=== PATIENT | female | born 1950 | race Caucasian/White ===

== ENCOUNTER 2016-08-06 | Outpatient (CLI) | payer MEDICARE, MEDICAID | END 2016-08-06 05:49 | disposition critical access hospital (66) | DX: R07.9 Chest pain, unspecified (principal) | CPT/HCPCS: A0425; A0427 ==

== ENCOUNTER 2016-08-06 06:13 | Observation (INO) | payer MEDICARE, MEDICAID ==
[2016-08-06] MEDS ORDERED: oxyCODONE 5 MG TABLET PO STA (07:50)
[2016-08-06] MEDS ORDERED: oxyCODONE 5 MG TABLET ONE (07:53)
[2016-08-06] MEDS ORDERED: IPRATROPIUM/ALBUTEROL 3 ML NEB INH PRN (09:03)
[2016-08-06] MEDS ORDERED: LORATADINE 10 MG TABLET PO PRN (09:03)
[2016-08-06] MEDS ORDERED: SODIUM CHLORIDE FLUSH 0.9% 10 ML SYRINGE IVP PRN (09:06)
[2016-08-06] MEDS ORDERED: ONDANSETRON 4 MG/2 ML VIAL IVP PRN (09:06)
[2016-08-06] MEDS ORDERED: oxyCODONE 5 MG TABLET PO PRN (09:06)
[2016-08-06] MEDS ORDERED: NITROGLYCERIN SL 0.4 MG TABLET SL PRN (09:06)
[2016-08-06] MEDS ORDERED: ZOLPIDEM 5 MG TABLET PO PRN (09:06)
[2016-08-06] MEDS ORDERED: NITROGLYCERIN SL 0.4 MG TABLET SL STA (09:06)
[2016-08-06] MEDS ORDERED: MORPHINE 2 MG/ML SYRINGE IVP STA (09:07)
[2016-08-06] MEDS ORDERED: MORPHINE 2 MG/ML SYRINGE ONE ×2 (09:08)
[2016-08-06] MEDS ORDERED: FUROSEMIDE 40 MG TABLET PO SCH ×4 (10:00→17:18)
[2016-08-06] MEDS ORDERED: ASPIRIN EC 81 MG TABLET PO SCH (10:00)
[2016-08-06] MEDS: MORPHINE 2 MG/ML SYRINGE IVP PRN ×2 (11:24→14:04)
[2016-08-06] MEDS ORDERED: ALLOPURINOL 100 MG TABLET PO SCH (12:00)
[2016-08-06] MEDS ORDERED: METOPROLOL TARTRATE 50 MG TABLET PO SCH (12:00)
[2016-08-06] MEDS ORDERED: PANTOPRAZOLE 40 MG TABLET PO SCH (12:00)
[2016-08-06] MEDS ORDERED: SERTRALINE 50 MG TABLET PO SCH (12:00)
[2016-08-06] MEDS ORDERED: MAGNESIUM OXIDE 400 MG TABLET PO SCH (12:00)
[2016-08-06] MEDS: oxyCODONE 5 MG TABLET PO PRN ×2 (12:32→17:44)
[2016-08-06] MEDS ORDERED: GABAPENTIN 300 MG CAPSULE PO SCH (14:00)
[2016-08-06] MEDS ORDERED: METHOCARBAMOL 750 MG PO SCH (14:00)
[2016-08-06] MEDS ORDERED: SODIUM CHLORIDE FLUSH 0.9% 10 ML SYRINGE IVP SCH (14:00)
[2016-08-07] MEDS ORDERED: POLYETHYLENE GLYCOL 3350 17 GM PACKET PO SCH (09:00)
[2016-08-07] MEDS ORDERED: ENOXAPARIN 30 MG/0.3 ML SYRINGE SUBQ SCH (09:00)
== END 2016-08-06 19:00 | disposition home or self-care (01) ==
DX: R07.89 Other chest pain (principal); I13.0 Hypertensive heart and chronic kidney disease with heart failure and stage 1 through stage 4 chronic kidney disease, or unspecified chronic kidney disease; I50.30 Unspecified diastolic (congestive) heart failure; N18.4 Chronic kidney disease, stage 4 (severe); J44.9 Chronic obstructive pulmonary disease, unspecified; F32.9 Major depressive disorder, single episode, unspecified; I48.2 Chronic atrial fibrillation; E78.5 Hyperlipidemia, unspecified; M79.602 Pain in left arm; R20.0 Anesthesia of skin; I25.10 Atherosclerotic heart disease of native coronary artery without angina pectoris; G47.33 Obstructive sleep apnea (adult) (pediatric); K21.9 Gastro-esophageal reflux disease without esophagitis; M46.90 Unspecified inflammatory spondylopathy, site unspecified; M10.9 Gout, unspecified; G89.29 Other chronic pain; Z66 Do not resuscitate; Z95.5 Presence of coronary angioplasty implant and graft; Z79.82 Long term (current) use of aspirin; Z87.11 Personal history of peptic ulcer disease; Z87.891 Personal history of nicotine dependence; Z86.14 Personal history of Methicillin resistant Staphylococcus aureus infection; Z99.81 Dependence on supplemental oxygen
CPT/HCPCS: 36415; 71010; 80048; 80076; 83690; 83880; 84484; 85025; 85379; 93005; 93010; 93306; 96374; 96376; 99284; 99285; A9270; G0378

== ENCOUNTER 2016-08-31 19:50 | Outpatient (CLI) | payer MEDICARE | END 2016-08-31 19:51 | disposition critical access hospital (66) | DX: R06.02 Shortness of breath (principal); R50.9 Fever, unspecified | CPT/HCPCS: A0425; A0427 ==

== ENCOUNTER 2016-08-31 20:10 | Inpatient (IN) | payer MEDICARE ==
[2016-08-31] MEDS ORDERED: ACETAMINOPHEN 1,000 MG/100 ML 100 ML IV STA (20:32)
[2016-08-31] MEDS ORDERED: ACETAMINOPHEN 1,000 MG/100 ML 100 ML IV ONE (20:32)
[2016-08-31] MEDS ORDERED: MAGNESIUM SULFATE 2 GRAM 50 ML IV ONE ×2 (20:42→20:49)
[2016-08-31] MEDS ORDERED: ONDANSETRON 4 MG/2 ML VIAL IVP PRN (23:16)
[2016-08-31] MEDS ORDERED: ALBUTEROL NEB 2.5 MG/3 ML INH PRN (23:20)
[2016-08-31] MEDS ORDERED: AZITHROMYCIN INJ 500 MG in SODIUM CHLORIDE 0.9% 250 ML IV SCH (23:22)
[2016-08-31] MEDS ORDERED: HYDROXYZINE HCL 10 MG PO PRN (23:23)
[2016-08-31] MEDS ORDERED: SODIUM CHLORIDE 0.9% 1,000 ML IV SCH (23:45)
[2016-08-31] MEDS ORDERED: PROMETHAZINE 25 MG/1 ML VIAL IM PRN (23:47)
[2016-09-01] MEDS ORDERED: cefTRIAXone 2 GM VIAL ONE (00:27)
[2016-09-01] MEDS ORDERED: SODIUM CHLORIDE 0.9% 100ML 100 ML IV ONE (00:29)
[2016-09-01] MEDS: cefTRIAXone 2 GM in SODIUM CHLORIDE 0.9% MINIBAG 100 ML IV SCH ×2 (00:55→08:25)
[2016-09-01] MEDS: SODIUM CHLORIDE FLUSH 0.9% 10 ML SYRINGE IVP PRN (00:55)
[2016-09-01] MEDS: oxyCODONE 5 MG TABLET PO PRN ×6 (01:16→21:19)
[2016-09-01] MEDS: ACETAMINOPHEN 325 MG TABLET PO PRN ×5 (01:17→21:19)
[2016-09-01] MEDS: TRIAMCINOLONE 0.1% CREAM 15 GM TUBE TOP SCH ×3 (03:14→21:21)
[2016-09-01] MEDS: SODIUM CHLORIDE FLUSH 0.9% 10 ML SYRINGE IVP SCH ×3 (05:13→19:05)
[2016-09-01] MEDS: SACCHAROMYCES BOULARDII 250 MG CAPSULE PO SCH ×2 (08:26→17:09)
[2016-09-01] MEDS: SERTRALINE 50 MG TABLET PO SCH (08:27)
[2016-09-01] MEDS: POLYETHYLENE GLYCOL 3350 17 GM PACKET PO SCH (08:27)
[2016-09-01] MEDS: ASPIRIN EC 81 MG TABLET PO SCH (08:27)
[2016-09-01] MEDS: ALLOPURINOL 100 MG TABLET PO SCH (08:27)
[2016-09-01] MEDS: PANTOPRAZOLE 40 MG TABLET PO SCH (08:27)
[2016-09-01] MEDS: HEPARIN 5,000 UNIT/ML VIAL SUBQ SCH ×2 (08:36→21:20)
[2016-09-01] MEDS ORDERED: metOLazone 2.5 MG TABLET PO SCH ×3 (09:00→21:00)
[2016-09-01] MEDS ORDERED: FUROSEMIDE 40 MG TABLET PO SCH ×5 (09:00→13:45)
[2016-09-01] MEDS: BUDESONIDE 0.5 MG/2 ML NEB INH SCH ×2 (09:08→20:05)
[2016-09-01] MEDS: METOPROLOL TARTRATE 50 MG TABLET PO SCH ×2 (10:50→21:21)
[2016-09-01] MEDS ORDERED: SODIUM CHLORIDE 0.9% 500 ML IV ONE (13:37)
[2016-09-01] MEDS ORDERED: MAGNESIUM SULFATE 5 GM/10 ML VIAL IV STA (18:05)
[2016-09-01] MEDS ORDERED: MAGNESIUM SULFATE 2 GRAM 50 ML IV ONE (18:30)
[2016-09-02] MEDS: oxyCODONE 5 MG TABLET PO PRN ×5 (01:25→21:46)
[2016-09-02] MEDS: ACETAMINOPHEN 325 MG TABLET PO PRN ×4 (01:26→21:45)
[2016-09-02] MEDS: SODIUM CHLORIDE FLUSH 0.9% 10 ML SYRINGE IVP SCH ×3 (05:27→21:45)
[2016-09-02] MEDS: AZITHROMYCIN 250 MG TABLET PO SCH ×2 (05:27→09:25)
[2016-09-02] MEDS: PANTOPRAZOLE 40 MG TABLET PO SCH (06:27)
[2016-09-02] MEDS: BUDESONIDE 0.5 MG/2 ML NEB INH SCH ×2 (08:14→19:15)
[2016-09-02] MEDS: cefTRIAXone 2 GM in SODIUM CHLORIDE 0.9% MINIBAG 100 ML IV SCH (09:25)
[2016-09-02] MEDS: ALLOPURINOL 100 MG TABLET PO SCH (09:25)
[2016-09-02] MEDS: ASPIRIN EC 81 MG TABLET PO SCH (09:25)
[2016-09-02] MEDS: SACCHAROMYCES BOULARDII 250 MG CAPSULE PO SCH ×2 (09:25→18:07)
[2016-09-02] MEDS: MAGNESIUM OXIDE 400 MG TABLET PO SCH ×3 (09:25→21:46)
[2016-09-02] MEDS: POLYETHYLENE GLYCOL 3350 17 GM PACKET PO SCH (09:26)
[2016-09-02] MEDS: SERTRALINE 50 MG TABLET PO SCH (09:26)
[2016-09-02] MEDS: SODIUM CHLORIDE FLUSH 0.9% 10 ML SYRINGE IVP PRN (09:27)
[2016-09-02] MEDS: METOPROLOL TARTRATE 50 MG TABLET PO SCH ×2 (09:28→21:46)
[2016-09-02] MEDS: TRIAMCINOLONE 0.1% CREAM 15 GM TUBE TOP SCH ×2 (09:30→21:46)
[2016-09-02] MEDS ORDERED: guaiFENesin/DEXTROMETHORPHAN 10 ML UDC PO PRN (11:02)
[2016-09-02] MEDS: HEPARIN 5,000 UNIT/ML VIAL SUBQ SCH ×2 (11:31→21:45)
[2016-09-03] MEDS: oxyCODONE 5 MG TABLET PO PRN ×4 (02:57→19:12)
[2016-09-03] MEDS: ACETAMINOPHEN 325 MG TABLET PO PRN ×3 (02:57→12:09)
[2016-09-03] MEDS: FUROSEMIDE 40 MG TABLET PO SCH ×2 (05:04→13:36)
[2016-09-03] MEDS: SODIUM CHLORIDE FLUSH 0.9% 10 ML SYRINGE IVP SCH ×3 (05:04→20:11)
[2016-09-03] MEDS: PANTOPRAZOLE 40 MG TABLET PO SCH (06:08)
[2016-09-03] MEDS: SACCHAROMYCES BOULARDII 250 MG CAPSULE PO SCH ×2 (08:45→16:58)
[2016-09-03] MEDS: ALLOPURINOL 100 MG TABLET PO SCH (08:46)
[2016-09-03] MEDS: AZITHROMYCIN 250 MG TABLET PO SCH (08:46)
[2016-09-03] MEDS: cefTRIAXone 2 GM in SODIUM CHLORIDE 0.9% MINIBAG 100 ML IV SCH (08:46)
[2016-09-03] MEDS: ASPIRIN EC 81 MG TABLET PO SCH (08:46)
[2016-09-03] MEDS: MAGNESIUM OXIDE 400 MG TABLET PO SCH ×2 (08:47→20:11)
[2016-09-03] MEDS: SERTRALINE 50 MG TABLET PO SCH (08:48)
[2016-09-03] MEDS: metOLazone 2.5 MG TABLET PO SCH (08:48)
[2016-09-03] MEDS: POLYETHYLENE GLYCOL 3350 17 GM PACKET PO SCH (08:48)
[2016-09-03] MEDS: HEPARIN 5,000 UNIT/ML VIAL SUBQ SCH ×2 (08:49→20:12)
[2016-09-03] MEDS: METOPROLOL TARTRATE 50 MG TABLET PO SCH ×2 (08:49→20:11)
[2016-09-03] MEDS: TRIAMCINOLONE 0.1% CREAM 15 GM TUBE TOP SCH ×2 (08:51→20:12)
[2016-09-03] MEDS: IPRATROPIUM/ALBUTEROL 3 ML NEB INH PRN (09:00)
[2016-09-03] MEDS: BUDESONIDE 0.5 MG/2 ML NEB INH SCH ×2 (09:00→19:30)
[2016-09-04] MEDS: oxyCODONE 5 MG TABLET PO PRN ×4 (00:08→12:44)
[2016-09-04] MEDS: SODIUM CHLORIDE FLUSH 0.9% 10 ML SYRINGE IVP SCH ×2 (06:41→13:02)
[2016-09-04] MEDS: PANTOPRAZOLE 40 MG TABLET PO SCH (06:42)
[2016-09-04] MEDS: FUROSEMIDE 40 MG TABLET PO SCH ×2 (06:42→13:02)
[2016-09-04] MEDS: IPRATROPIUM/ALBUTEROL 3 ML NEB INH PRN (07:30)
[2016-09-04] MEDS: BUDESONIDE 0.5 MG/2 ML NEB INH SCH (07:30)
[2016-09-04] MEDS: ALLOPURINOL 100 MG TABLET PO SCH (08:37)
[2016-09-04] MEDS: SACCHAROMYCES BOULARDII 250 MG CAPSULE PO SCH (08:37)
[2016-09-04] MEDS: metOLazone 2.5 MG TABLET PO SCH (08:37)
[2016-09-04] MEDS: ASPIRIN EC 81 MG TABLET PO SCH (08:38)
[2016-09-04] MEDS: SERTRALINE 50 MG TABLET PO SCH (08:38)
[2016-09-04] MEDS: METOPROLOL TARTRATE 50 MG TABLET PO SCH (08:38)
[2016-09-04] MEDS: POLYETHYLENE GLYCOL 3350 17 GM PACKET PO SCH (08:39)
[2016-09-04] MEDS: AZITHROMYCIN 250 MG TABLET PO SCH (08:39)
[2016-09-04] MEDS: MAGNESIUM OXIDE 400 MG TABLET PO SCH (08:39)
[2016-09-04] MEDS: HEPARIN 5,000 UNIT/ML VIAL SUBQ SCH (08:42)
[2016-09-04] MEDS: SODIUM CHLORIDE FLUSH 0.9% 10 ML SYRINGE IVP PRN ×2 (08:44→09:54)
[2016-09-04] MEDS: cefTRIAXone 2 GM in SODIUM CHLORIDE 0.9% MINIBAG 100 ML IV SCH (08:44)
[2016-09-04] MEDS: TRIAMCINOLONE 0.1% CREAM 15 GM TUBE TOP SCH (08:44)
== END 2016-09-04 15:40 | disposition home or self-care (01) | DRG 190 ==
DX: J44.0 Chronic obstructive pulmonary disease with (acute) lower respiratory infection (principal); J18.1 Lobar pneumonia, unspecified organism; J18.9 Pneumonia, unspecified organism; N30.00 Acute cystitis without hematuria; I13.0 Hypertensive heart and chronic kidney disease with heart failure and stage 1 through stage 4 chronic kidney disease, or unspecified chronic kidney disease; N18.4 Chronic kidney disease, stage 4 (severe); I50.30 Unspecified diastolic (congestive) heart failure; B96.20 Unspecified Escherichia coli [E. coli] as the cause of diseases classified elsewhere; F03.90 Unspecified dementia, unspecified severity, without behavioral disturbance, psychotic disturbance, mood disturbance, and anxiety; G47.30 Sleep apnea, unspecified; E83.42 Hypomagnesemia; R09.02 Hypoxemia; D63.1 Anemia in chronic kidney disease; D50.9 Iron deficiency anemia, unspecified; I25.10 Atherosclerotic heart disease of native coronary artery without angina pectoris; I48.2 Chronic atrial fibrillation; G47.33 Obstructive sleep apnea (adult) (pediatric); M54.5 Low back pain; G89.29 Other chronic pain; M10.9 Gout, unspecified; K21.9 Gastro-esophageal reflux disease without esophagitis; K27.9 Peptic ulcer, site unspecified, unspecified as acute or chronic, without hemorrhage or perforation; F41.8 Other specified anxiety disorders; Z66 Do not resuscitate; Z79.82 Long term (current) use of aspirin; Z95.5 Presence of coronary angioplasty implant and graft; Z87.891 Personal history of nicotine dependence

== ENCOUNTER 2016-09-19 14:49 | Outpatient (CLI) | payer MEDICARE, MEDICAID | END 2016-09-19 14:50 | disposition home or self-care (01) | DX: N05.9 Unspecified nephritic syndrome with unspecified morphologic changes (principal); I50.9 Heart failure, unspecified; D70.9 Neutropenia, unspecified; D50.0 Iron deficiency anemia secondary to blood loss (chronic) ==

== ENCOUNTER 2016-10-11 07:43 | Outpatient (CLI) | payer MEDICARE, MEDICAID | END 2016-10-11 07:44 | disposition critical access hospital (66) | DX: R06.00 Dyspnea, unspecified (principal) | CPT/HCPCS: A0425; A0427 ==

== ENCOUNTER 2016-10-11 08:05 | Inpatient (IN) | payer MEDICARE, MEDICAID ==
[2016-10-11] MEDS ORDERED: IPRATROPIUM/ALBUTEROL 3 ML NEB INH STA (08:16)
[2016-10-11] MEDS ORDERED: MAGNESIUM SULFATE 2 GRAM 50 ML IV ONE ×2 (08:18→08:22)
[2016-10-11] MEDS ORDERED: ACETAMINOPHEN 1,000 MG/100 ML 100 ML IV STA (09:06)
[2016-10-11] MEDS ORDERED: AZITHROMYCIN INJ 500 MG in SODIUM CHLORIDE 0.9% 250 ML IV STA (09:08)
[2016-10-11] MEDS ORDERED: cefTRIAXone 1 GM in SODIUM CHLORIDE 0.9% MINIBAG 100 ML IV STA (09:08)
[2016-10-11] MEDS ORDERED: IPRATROPIUM/ALBUTEROL 3 ML NEB INH ONE (09:25)
[2016-10-11] MEDS ORDERED: cefTRIAXone 1 GM VIAL ONE (09:37)
[2016-10-11] MEDS ORDERED: ACETAMINOPHEN 1,000 MG/100 ML 100 ML IV ONE (09:37)
[2016-10-11] MEDS ORDERED: ALBUTEROL NEB 2.5 MG/3 ML INH PRN (10:30)
[2016-10-11] MEDS ORDERED: ONDANSETRON 4 MG/2 ML VIAL IVP PRN (10:37)
[2016-10-11] MEDS ORDERED: ACETAMINOPHEN 325 MG TABLET PO PRN (10:37)
[2016-10-11] MEDS ORDERED: HEPARIN 5,000 UNIT/ML VIAL SUBQ SCH (11:00)
[2016-10-11] MEDS: AZTREONAM 1 GM in SODIUM CHLORIDE 0.9% MINIBAG 100 ML IV SCH ×2 (11:36→18:16)
[2016-10-11] MEDS: methylPREDNISolone SUCCINATE 40 MG/ML VIAL IVP SCH ×2 (12:03→17:42)
[2016-10-11] MEDS ORDERED: GENTAMICIN 400 MG in SODIUM CHLORIDE 0.9% 100ML 100 ML IV SCH (13:00)
[2016-10-11] MEDS: IPRATROPIUM/ALBUTEROL 3 ML NEB INH SCH ×3 (14:15→19:35)
[2016-10-11] MEDS ORDERED: VANCOMYCIN PER PHARMACY 1 GM in SODIUM CHLORIDE 0.9% 250 ML IV SCH (15:00)
[2016-10-11] MEDS: SODIUM CHLORIDE FLUSH 0.9% 10 ML SYRINGE IVP SCH (16:02)
[2016-10-11] MEDS: VANCOMYCIN INJ 1 GM in SODIUM CHLORIDE 0.9% 250 ML IV SCH (16:02)
[2016-10-11] MEDS: SACCHAROMYCES BOULARDII 250 MG CAPSULE PO SCH (16:12)
[2016-10-11] MEDS ORDERED: HYDROXYZINE HCL 10 MG PO PRN (17:21)
[2016-10-11] MEDS ORDERED: MECLIZINE 12.5 MG TABLET PO PRN (17:21)
[2016-10-11] MEDS ORDERED: NON FORMULARY MED (Oxycodone Hcl/Acetaminophen [Oxycodone-Acetaminophen 10-325] 1 TAB) PO PRN (17:24)
[2016-10-11] MEDS: oxyCODONE 5 MG TABLET PO PRN (20:14)
[2016-10-11] MEDS: CHLORHEXIDINE GLUCONATE 15 ML UDC PO SCH (21:43)
[2016-10-11] MEDS: MAGNESIUM OXIDE 400 MG TABLET PO SCH (21:44)
[2016-10-11] MEDS: GABAPENTIN 300 MG CAPSULE PO SCH (21:44)
[2016-10-11] MEDS: FUROSEMIDE 40 MG TABLET PO SCH (21:45)
[2016-10-11] MEDS: METOPROLOL TARTRATE 50 MG TABLET PO SCH (21:46)
[2016-10-11] MEDS: SODIUM CHLORIDE FLUSH 0.9% 10 ML SYRINGE IVP PRN ×2 (22:04→22:05)
[2016-10-12] MEDS: HEPARIN 5,000 UNIT/ML VIAL SUBQ SCH ×3 (00:04→23:59)
[2016-10-12] MEDS: AZTREONAM 1 GM in SODIUM CHLORIDE 0.9% MINIBAG 100 ML IV SCH ×4 (00:17→17:00)
[2016-10-12] MEDS: oxyCODONE 5 MG TABLET PO PRN ×5 (02:00→20:30)
[2016-10-12] MEDS: methylPREDNISolone SUCCINATE 40 MG/ML VIAL IVP SCH (03:25)
[2016-10-12] MEDS: VANCOMYCIN INJ 1 GM in SODIUM CHLORIDE 0.9% 250 ML IV SCH (03:33)
[2016-10-12] MEDS: SODIUM CHLORIDE FLUSH 0.9% 10 ML SYRINGE IVP PRN (03:40)
[2016-10-12] MEDS: SODIUM CHLORIDE FLUSH 0.9% 10 ML SYRINGE IVP SCH ×4 (05:37→22:07)
[2016-10-12] MEDS: PANTOPRAZOLE 40 MG TABLET PO SCH (06:33)
[2016-10-12] MEDS: GABAPENTIN 300 MG CAPSULE PO SCH ×3 (06:33→22:07)
[2016-10-12] MEDS ORDERED: PANTOPRAZOLE 40 MG VIAL IVP SCH (07:00)
[2016-10-12] MEDS ORDERED: GLUCAGON 1 MG/ML VIAL SUBQ PRN (07:45)
[2016-10-12] MEDS ORDERED: DEXTROSE GEL 37.5 GM TUBE PO PRN (07:45)
[2016-10-12] MEDS ORDERED: DEXTROSE 5% 1,000 ML IV PRN (07:45)
[2016-10-12] MEDS ORDERED: DEXTROSE 50% ABBOJECT 25 GM/50 ML SYRINGE IVP PRN (07:45)
[2016-10-12] MEDS: INSULIN ASPART 300 UNIT/3 ML PEN SUBQ SCH ×4 (07:53→21:20)
[2016-10-12] MEDS: ALLOPURINOL 100 MG TABLET PO SCH (08:16)
[2016-10-12] MEDS: predniSONE 20 MG TABLET PO SCH (08:16)
[2016-10-12] MEDS: SACCHAROMYCES BOULARDII 250 MG CAPSULE PO SCH ×2 (08:16→17:00)
[2016-10-12] MEDS: FUROSEMIDE 40 MG TABLET PO SCH ×2 (08:17→22:06)
[2016-10-12] MEDS: MAGNESIUM OXIDE 400 MG TABLET PO SCH ×2 (08:17→22:06)
[2016-10-12] MEDS: ASPIRIN EC 81 MG TABLET PO SCH (08:17)
[2016-10-12] MEDS: CHLORHEXIDINE GLUCONATE 15 ML UDC PO SCH ×2 (08:17→20:25)
[2016-10-12] MEDS: METOPROLOL TARTRATE 50 MG TABLET PO SCH (08:18)
[2016-10-12] MEDS: SERTRALINE 50 MG TABLET PO SCH (08:19)
[2016-10-12] MEDS: IPRATROPIUM/ALBUTEROL 3 ML NEB INH SCH (09:45)
[2016-10-12] MEDS ORDERED: VANCOMYCIN INJ 1 GM in SODIUM CHLORIDE 0.9% 250 ML IV SCH (16:00)
[2016-10-12] MEDS: TEMAZEPAM 15 MG CAPSULE PO SCH (22:07)
[2016-10-13] MEDS: oxyCODONE 5 MG TABLET PO PRN ×5 (00:04→18:24)
[2016-10-13] MEDS: GABAPENTIN 300 MG CAPSULE PO SCH ×3 (05:57→20:22)
[2016-10-13] MEDS: AZTREONAM 1 GM in SODIUM CHLORIDE 0.9% MINIBAG 100 ML IV SCH ×5 (05:57→18:23)
[2016-10-13] MEDS: SODIUM CHLORIDE FLUSH 0.9% 10 ML SYRINGE IVP SCH ×3 (05:57→18:23)
[2016-10-13] MEDS: PANTOPRAZOLE 40 MG TABLET PO SCH (07:05)
[2016-10-13] MEDS: SODIUM CHLORIDE FLUSH 0.9% 10 ML SYRINGE IVP PRN ×2 (07:08→13:57)
[2016-10-13] MEDS: SACCHAROMYCES BOULARDII 250 MG CAPSULE PO SCH ×2 (08:21→17:00)
[2016-10-13] MEDS: predniSONE 20 MG TABLET PO SCH (08:21)
[2016-10-13] MEDS: INSULIN ASPART 300 UNIT/3 ML PEN SUBQ SCH ×4 (08:22→20:26)
[2016-10-13] MEDS: ALLOPURINOL 100 MG TABLET PO SCH (10:02)
[2016-10-13] MEDS: FUROSEMIDE 40 MG TABLET PO SCH ×2 (10:03→20:22)
[2016-10-13] MEDS: MAGNESIUM OXIDE 400 MG TABLET PO SCH ×2 (10:03→20:21)
[2016-10-13] MEDS: CHLORHEXIDINE GLUCONATE 15 ML UDC PO SCH ×2 (10:03→20:21)
[2016-10-13] MEDS: METOPROLOL TARTRATE 50 MG TABLET PO SCH ×2 (10:03→20:24)
[2016-10-13] MEDS: ASPIRIN EC 81 MG TABLET PO SCH (10:03)
[2016-10-13] MEDS: SERTRALINE 50 MG TABLET PO SCH (10:03)
[2016-10-13] MEDS: HEPARIN 5,000 UNIT/ML VIAL SUBQ SCH (12:01)
[2016-10-13] MEDS: TEMAZEPAM 15 MG CAPSULE PO SCH (20:22)
[2016-10-13] MEDS ORDERED: TEMAZEPAM 15 MG CAPSULE PO SCH (21:00)
[2016-10-14] MEDS: AZTREONAM 1 GM in SODIUM CHLORIDE 0.9% MINIBAG 100 ML IV SCH ×5 (00:37→23:43)
[2016-10-14] MEDS: HEPARIN 5,000 UNIT/ML VIAL SUBQ SCH ×3 (00:40→23:40)
[2016-10-14] MEDS: oxyCODONE 5 MG TABLET PO PRN ×6 (00:54→23:48)
[2016-10-14] MEDS: GABAPENTIN 300 MG CAPSULE PO SCH ×3 (05:21→21:27)
[2016-10-14] MEDS: SODIUM CHLORIDE FLUSH 0.9% 10 ML SYRINGE IVP SCH ×3 (05:21→20:14)
[2016-10-14] MEDS: PANTOPRAZOLE 40 MG TABLET PO SCH (06:23)
[2016-10-14] MEDS: SACCHAROMYCES BOULARDII 250 MG CAPSULE PO SCH ×2 (08:35→17:15)
[2016-10-14] MEDS: ALLOPURINOL 100 MG TABLET PO SCH (08:36)
[2016-10-14] MEDS: MAGNESIUM OXIDE 400 MG TABLET PO SCH ×2 (08:36→20:03)
[2016-10-14] MEDS: predniSONE 20 MG TABLET PO SCH (08:36)
[2016-10-14] MEDS: SERTRALINE 50 MG TABLET PO SCH (08:38)
[2016-10-14] MEDS: METOPROLOL TARTRATE 50 MG TABLET PO SCH ×2 (08:38→20:03)
[2016-10-14] MEDS: FUROSEMIDE 40 MG TABLET PO SCH ×2 (08:38→20:03)
[2016-10-14] MEDS: CHLORHEXIDINE GLUCONATE 15 ML UDC PO SCH ×2 (08:39→20:03)
[2016-10-14] MEDS: ASPIRIN EC 81 MG TABLET PO SCH (08:39)
[2016-10-14] MEDS: INSULIN ASPART 300 UNIT/3 ML PEN SUBQ SCH ×4 (09:00→20:10)
[2016-10-14] MEDS: TEMAZEPAM 15 MG CAPSULE PO SCH (20:13)
[2016-10-15] MEDS: PANTOPRAZOLE 40 MG TABLET PO SCH (06:33)
[2016-10-15] MEDS: GABAPENTIN 300 MG CAPSULE PO SCH (06:33)
[2016-10-15] MEDS: SODIUM CHLORIDE FLUSH 0.9% 10 ML SYRINGE IVP SCH (06:34)
[2016-10-15] MEDS: AZTREONAM 1 GM in SODIUM CHLORIDE 0.9% MINIBAG 100 ML IV SCH (06:34)
[2016-10-15] MEDS: INSULIN ASPART 300 UNIT/3 ML PEN SUBQ SCH (08:47)
[2016-10-15] MEDS: ASPIRIN EC 81 MG TABLET PO SCH (08:48)
[2016-10-15] MEDS: FUROSEMIDE 40 MG TABLET PO SCH (08:48)
[2016-10-15] MEDS: ALLOPURINOL 100 MG TABLET PO SCH (08:48)
[2016-10-15] MEDS: CHLORHEXIDINE GLUCONATE 15 ML UDC PO SCH (08:49)
[2016-10-15] MEDS: MAGNESIUM OXIDE 400 MG TABLET PO SCH (08:49)
[2016-10-15] MEDS: SERTRALINE 50 MG TABLET PO SCH (08:49)
[2016-10-15] MEDS: SACCHAROMYCES BOULARDII 250 MG CAPSULE PO SCH (08:49)
[2016-10-15] MEDS: predniSONE 20 MG TABLET PO SCH (08:49)
[2016-10-15] MEDS: METOPROLOL TARTRATE 50 MG TABLET PO SCH (08:59)
[2016-10-15] MEDS: oxyCODONE 5 MG TABLET PO PRN (08:59)
[2016-10-15] MEDS ORDERED: SODIUM CHLORIDE 0.9% 500 ML IV ONE (10:45)
[2016-10-15] MEDS ORDERED: AZTREONAM 1 GM in SODIUM CHLORIDE 0.9% MINIBAG 100 ML IV SCH (12:00)
[2016-10-15] MEDS ORDERED: VANCOMYCIN INJ 1 GM in SODIUM CHLORIDE 0.9% 250 ML IV SCH (16:00)
== END 2016-10-15 12:55 | disposition home or self-care (01) | DRG 190 ==
DX: J44.0 Chronic obstructive pulmonary disease with (acute) lower respiratory infection (principal); J15.212 Pneumonia due to Methicillin resistant Staphylococcus aureus; J18.1 Lobar pneumonia, unspecified organism; J96.02 Acute respiratory failure with hypercapnia; I11.0 Hypertensive heart disease with heart failure; I50.9 Heart failure, unspecified; J96.21 Acute and chronic respiratory failure with hypoxia; I48.91 Unspecified atrial fibrillation; G47.30 Sleep apnea, unspecified; J96.22 Acute and chronic respiratory failure with hypercapnia; I13.0 Hypertensive heart and chronic kidney disease with heart failure and stage 1 through stage 4 chronic kidney disease, or unspecified chronic kidney disease; I50.30 Unspecified diastolic (congestive) heart failure; N18.4 Chronic kidney disease, stage 4 (severe); N17.9 Acute kidney failure, unspecified; K50.90 Crohn's disease, unspecified, without complications; J44.1 Chronic obstructive pulmonary disease with (acute) exacerbation; Y95 Nosocomial condition; T36.8X5A Adverse effect of other systemic antibiotics, initial encounter; T36.5X5A Adverse effect of aminoglycosides, initial encounter; Y92.239 Unspecified place in hospital as the place of occurrence of the external cause; I48.2 Chronic atrial fibrillation; M10.9 Gout, unspecified; I25.10 Atherosclerotic heart disease of native coronary artery without angina pectoris; D50.9 Iron deficiency anemia, unspecified; G47.33 Obstructive sleep apnea (adult) (pediatric); F41.9 Anxiety disorder, unspecified; F32.9 Major depressive disorder, single episode, unspecified; M54.5 Low back pain; G89.29 Other chronic pain; Z95.5 Presence of coronary angioplasty implant and graft; Z87.11 Personal history of peptic ulcer disease; Z79.82 Long term (current) use of aspirin; Z87.440 Personal history of urinary (tract) infections; Z87.891 Personal history of nicotine dependence

== ENCOUNTER 2016-10-22 08:54 | Outpatient (CLI) | payer MEDICARE, MEDICAID | END 2016-10-22 08:55 | disposition critical access hospital (66) | DX: R06.02 Shortness of breath (principal) | CPT/HCPCS: A0425; A0427 ==

== ENCOUNTER 2016-10-22 09:14 | Inpatient (IN) | payer MEDICARE, MEDICAID ==
[2016-10-22] MEDS ORDERED: NITROGLYCERIN 2% PASTE TOP STA (09:27)
[2016-10-22] MEDS ORDERED: FUROSEMIDE 40 MG/4 ML VIAL IVP STA (09:28)
[2016-10-22] MEDS ORDERED: FUROSEMIDE 40 MG/4 ML VIAL ONE (09:40)
[2016-10-22] MEDS ORDERED: NITROGLYCERIN 2% PASTE TOP ONE (09:40)
[2016-10-22] MEDS ORDERED: ENOXAPARIN 80 MG/0.8 ML SYRINGE SUBQ STA (10:20)
[2016-10-22] MEDS ORDERED: VANCOMYCIN INJ 1 GM in SODIUM CHLORIDE 0.9% 250 ML IV STA (10:22)
[2016-10-22] MEDS ORDERED: VANCOMYCIN 1 GM VIAL ONE (10:41)
[2016-10-22] MEDS ORDERED: ENOXAPARIN 80 MG/0.8 ML SYRINGE SUBQ ONE (10:41)
[2016-10-22] MEDS ORDERED: ALBUTEROL NEB 2.5 MG/3 ML INH PRN (11:29)
[2016-10-22] MEDS ORDERED: ONDANSETRON 4 MG/2 ML VIAL IVP PRN (11:29)
[2016-10-22] MEDS ORDERED: SODIUM CHLORIDE 0.9% 250 ML IV ONE (11:38)
[2016-10-22] MEDS ORDERED: VANCOMYCIN PER PHARMACY 0 GM in SODIUM CHLORIDE 0.9% 250 ML IV SCH (12:00)
[2016-10-22] MEDS: PANTOPRAZOLE 40 MG VIAL IVP SCH (12:50)
[2016-10-22] MEDS: ENOXAPARIN 30 MG/0.3 ML SYRINGE SUBQ SCH (12:50)
[2016-10-22] MEDS: SERTRALINE 50 MG TABLET PO SCH (12:50)
[2016-10-22] MEDS: ALLOPURINOL 100 MG TABLET PO SCH (12:51)
[2016-10-22] MEDS: ASPIRIN EC 81 MG TABLET PO SCH (12:51)
[2016-10-22] MEDS: HYDROcod/ACETAM 5/325 MG TABLET PO PRN ×3 (13:05→21:14)
[2016-10-22] MEDS: SODIUM CHLORIDE FLUSH 0.9% 10 ML SYRINGE IVP SCH ×2 (13:06→21:15)
[2016-10-22] MEDS: GABAPENTIN 300 MG CAPSULE PO SCH ×2 (13:43→21:15)
[2016-10-22] MEDS: IPRATROPIUM/ALBUTEROL 3 ML NEB INH PRN (14:59)
[2016-10-22] MEDS: SACCHAROMYCES BOULARDII 250 MG CAPSULE PO SCH (17:05)
[2016-10-22] MEDS ORDERED: oxyCOD/ACETAMIN 5 MG/325 MG TABLET PO PRN (20:46)
[2016-10-22] MEDS: CHLORHEXIDINE GLUCONATE 15 ML UDC PO SCH (21:14)
[2016-10-22] MEDS: TEMAZEPAM 15 MG CAPSULE PO PRN (21:53)
[2016-10-23] MEDS: HYDROcod/ACETAM 5/325 MG TABLET PO PRN ×2 (03:43→08:26)
[2016-10-23] MEDS ORDERED: MAGNESIUM SULFATE 2 GM in SODIUM CHLORIDE 0.9% 50 ML IV ONE (06:13)
[2016-10-23] MEDS: SODIUM CHLORIDE FLUSH 0.9% 10 ML SYRINGE IVP SCH ×3 (06:21→22:27)
[2016-10-23] MEDS: GABAPENTIN 300 MG CAPSULE PO SCH ×3 (06:21→22:27)
[2016-10-23] MEDS: PANTOPRAZOLE 40 MG VIAL IVP SCH (06:21)
[2016-10-23] MEDS: IPRATROPIUM/ALBUTEROL 3 ML NEB INH PRN (07:20)
[2016-10-23] MEDS ORDERED: MAGNESIUM SULFATE 2 GRAM 50 ML IV ONE (08:00)
[2016-10-23] MEDS: SACCHAROMYCES BOULARDII 250 MG CAPSULE PO SCH ×2 (08:26→16:51)
[2016-10-23] MEDS: METOPROLOL SUCCINATE 50 MG TABLET PO SCH (08:27)
[2016-10-23] MEDS: SERTRALINE 50 MG TABLET PO SCH (08:28)
[2016-10-23] MEDS: ALLOPURINOL 100 MG TABLET PO SCH (08:28)
[2016-10-23] MEDS: ASPIRIN EC 81 MG TABLET PO SCH (08:29)
[2016-10-23] MEDS: ENOXAPARIN 30 MG/0.3 ML SYRINGE SUBQ SCH (08:30)
[2016-10-23] MEDS: CHLORHEXIDINE GLUCONATE 15 ML UDC PO SCH ×2 (08:30→19:56)
[2016-10-23] MEDS: LIDOCAINE PATCH 5% TOP PRN (08:36)
[2016-10-23] MEDS ORDERED: VANCOMYCIN INJ 1 GM in SODIUM CHLORIDE 0.9% 250 ML IV SCH (11:00)
[2016-10-23] MEDS: oxyCODONE 5 MG TABLET PO PRN ×4 (12:16→23:54)
[2016-10-23] MEDS: SODIUM CHLORIDE FLUSH 0.9% 10 ML SYRINGE IVP PRN (12:54)
[2016-10-23] MEDS: FUROSEMIDE 40 MG/4 ML VIAL IVP SCH (12:54)
[2016-10-23] MEDS ORDERED: IRON SUCROSE 200 MG in SODIUM CHLORIDE 0.9% 100ML 100 ML IV ONE (13:00)
[2016-10-23] MEDS: ACETAMINOPHEN 325 MG TABLET PO PRN (16:10)
[2016-10-23] MEDS ORDERED: TEMAZEPAM 15 MG CAPSULE PO SCH (21:00)
[2016-10-23] MEDS: TEMAZEPAM 15 MG CAPSULE PO PRN (22:27)
[2016-10-24] MEDS: TRIAMCINOLONE 0.1% CREAM 15 GM TUBE TOP SCH ×3 (00:07→22:40)
[2016-10-24] MEDS: oxyCODONE 5 MG TABLET PO PRN ×5 (04:30→22:40)
[2016-10-24] MEDS: SODIUM CHLORIDE FLUSH 0.9% 10 ML SYRINGE IVP SCH ×3 (06:23→22:44)
[2016-10-24] MEDS: SODIUM CHLORIDE FLUSH 0.9% 10 ML SYRINGE IVP PRN (06:23)
[2016-10-24] MEDS: PANTOPRAZOLE 40 MG VIAL IVP SCH (06:23)
[2016-10-24] MEDS: GABAPENTIN 300 MG CAPSULE PO SCH ×3 (06:23→22:40)
[2016-10-24] MEDS: IPRATROPIUM/ALBUTEROL 3 ML NEB INH PRN ×3 (08:35→21:40)
[2016-10-24] MEDS: SERTRALINE 50 MG TABLET PO SCH (08:39)
[2016-10-24] MEDS: ENOXAPARIN 30 MG/0.3 ML SYRINGE SUBQ SCH (08:39)
[2016-10-24] MEDS: FUROSEMIDE 40 MG/4 ML VIAL IVP SCH (08:39)
[2016-10-24] MEDS: CHLORHEXIDINE GLUCONATE 15 ML UDC PO SCH ×2 (08:39→22:40)
[2016-10-24] MEDS: ASPIRIN EC 81 MG TABLET PO SCH (08:39)
[2016-10-24] MEDS: METOPROLOL SUCCINATE 50 MG TABLET PO SCH (08:39)
[2016-10-24] MEDS: SACCHAROMYCES BOULARDII 250 MG CAPSULE PO SCH ×2 (08:39→16:29)
[2016-10-24] MEDS: ALLOPURINOL 100 MG TABLET PO SCH (08:40)
[2016-10-24] MEDS ORDERED: VANCOMYCIN INJ 1 GM in SODIUM CHLORIDE 0.9% 250 ML IV SCH (11:00)
[2016-10-24] MEDS: LIDOCAINE PATCH 5% TOP PRN (12:03)
[2016-10-24] MEDS: ACETAMINOPHEN 325 MG TABLET PO PRN (16:29)
[2016-10-24] MEDS: CEFEPIME 1 GM in SODIUM CHLORIDE 0.9% MINIBAG 100 ML IV SCH (17:32)
[2016-10-24] MEDS: TEMAZEPAM 15 MG CAPSULE PO PRN (22:41)
[2016-10-25] MEDS: oxyCODONE 5 MG TABLET PO PRN ×5 (03:52→21:49)
[2016-10-25] MEDS: SODIUM CHLORIDE FLUSH 0.9% 10 ML SYRINGE IVP SCH ×3 (06:25→21:50)
[2016-10-25] MEDS: PANTOPRAZOLE 40 MG VIAL IVP SCH (06:25)
[2016-10-25] MEDS: GABAPENTIN 300 MG CAPSULE PO SCH ×3 (06:25→21:49)
[2016-10-25] MEDS: IPRATROPIUM/ALBUTEROL 3 ML NEB INH PRN (07:30)
[2016-10-25] MEDS: CHLORHEXIDINE GLUCONATE 15 ML UDC PO SCH ×2 (08:04→21:49)
[2016-10-25] MEDS: SACCHAROMYCES BOULARDII 250 MG CAPSULE PO SCH ×2 (08:04→16:39)
[2016-10-25] MEDS: ASPIRIN EC 81 MG TABLET PO SCH (08:04)
[2016-10-25] MEDS: ENOXAPARIN 30 MG/0.3 ML SYRINGE SUBQ SCH (08:04)
[2016-10-25] MEDS: ALLOPURINOL 100 MG TABLET PO SCH (08:04)
[2016-10-25] MEDS: METOPROLOL SUCCINATE 50 MG TABLET PO SCH (08:05)
[2016-10-25] MEDS: SERTRALINE 50 MG TABLET PO SCH (08:05)
[2016-10-25] MEDS: FUROSEMIDE 40 MG/4 ML VIAL IVP SCH (08:05)
[2016-10-25] MEDS: LIDOCAINE PATCH 5% TOP PRN (08:06)
[2016-10-25] MEDS: TRIAMCINOLONE 0.1% CREAM 15 GM TUBE TOP SCH ×2 (08:08→21:51)
[2016-10-25] MEDS: SODIUM CHLORIDE FLUSH 0.9% 10 ML SYRINGE IVP PRN (08:14)
[2016-10-25] MEDS: MAGNESIUM OXIDE 400 MG TABLET PO SCH ×2 (11:17→21:49)
[2016-10-25] MEDS: CEFEPIME 1 GM in SODIUM CHLORIDE 0.9% MINIBAG 100 ML IV SCH (17:53)
[2016-10-25] MEDS: POLYETHYLENE GLYCOL 3350 17 GM PACKET PO SCH (21:49)
[2016-10-25] MEDS: TEMAZEPAM 15 MG CAPSULE PO PRN (22:05)
[2016-10-26] MEDS: oxyCODONE 5 MG TABLET PO PRN (05:42)
[2016-10-26] MEDS: SODIUM CHLORIDE FLUSH 0.9% 10 ML SYRINGE IVP SCH (05:42)
[2016-10-26] MEDS: PANTOPRAZOLE 40 MG VIAL IVP SCH (05:42)
[2016-10-26] MEDS: GABAPENTIN 300 MG CAPSULE PO SCH (05:42)
[2016-10-26] MEDS: IPRATROPIUM/ALBUTEROL 3 ML NEB INH PRN (07:30)
[2016-10-26] MEDS: ACETAMINOPHEN 325 MG TABLET PO PRN (07:59)
[2016-10-26] MEDS: LIDOCAINE PATCH 5% TOP PRN (08:00)
[2016-10-26] MEDS: POLYETHYLENE GLYCOL 3350 17 GM PACKET PO SCH (08:50)
[2016-10-26] MEDS: TRIAMCINOLONE 0.1% CREAM 15 GM TUBE TOP SCH (08:50)
[2016-10-26] MEDS: CHLORHEXIDINE GLUCONATE 15 ML UDC PO SCH (08:50)
[2016-10-26] MEDS: METOPROLOL SUCCINATE 50 MG TABLET PO SCH (08:51)
[2016-10-26] MEDS: ASPIRIN EC 81 MG TABLET PO SCH (08:51)
[2016-10-26] MEDS: MAGNESIUM OXIDE 400 MG TABLET PO SCH (08:51)
[2016-10-26] MEDS: SERTRALINE 50 MG TABLET PO SCH (08:51)
[2016-10-26] MEDS: FUROSEMIDE 40 MG/4 ML VIAL IVP SCH (08:51)
[2016-10-26] MEDS: ALLOPURINOL 100 MG TABLET PO SCH (08:51)
[2016-10-26] MEDS: SACCHAROMYCES BOULARDII 250 MG CAPSULE PO SCH (08:51)
[2016-10-26] MEDS: ENOXAPARIN 30 MG/0.3 ML SYRINGE SUBQ SCH (08:51)
== END 2016-10-26 11:37 | disposition home or self-care (01) | DRG 871 ==
DX: A41.9 Sepsis, unspecified organism (principal); J96.01 Acute respiratory failure with hypoxia; J96.00 Acute respiratory failure, unspecified whether with hypoxia or hypercapnia; R07.9 Chest pain, unspecified; J18.9 Pneumonia, unspecified organism; J96.02 Acute respiratory failure with hypercapnia; I13.0 Hypertensive heart and chronic kidney disease with heart failure and stage 1 through stage 4 chronic kidney disease, or unspecified chronic kidney disease; N18.4 Chronic kidney disease, stage 4 (severe); K50.90 Crohn's disease, unspecified, without complications; I95.9 Hypotension, unspecified; G47.30 Sleep apnea, unspecified; K21.9 Gastro-esophageal reflux disease without esophagitis; G47.33 Obstructive sleep apnea (adult) (pediatric); Z86.14 Personal history of Methicillin resistant Staphylococcus aureus infection; J44.9 Chronic obstructive pulmonary disease, unspecified; I50.9 Heart failure, unspecified; I25.10 Atherosclerotic heart disease of native coronary artery without angina pectoris; I48.91 Unspecified atrial fibrillation; D50.9 Iron deficiency anemia, unspecified; E78.5 Hyperlipidemia, unspecified; F41.8 Other specified anxiety disorders; Y95 Nosocomial condition; Z66 Do not resuscitate; Z95.5 Presence of coronary angioplasty implant and graft; Z99.81 Dependence on supplemental oxygen; Z79.82 Long term (current) use of aspirin; Z87.891 Personal history of nicotine dependence; Z88.0 Allergy status to penicillin

== ENCOUNTER 2017-01-05 11:53 | Outpatient (CLI) | payer MEDICARE, MEDICAID | END 2017-01-05 11:54 | disposition short-term general hospital (02) | LOC: EMS 11:53 | PROVIDERS: ATTEND Surgery | DX: R50.9 Fever, unspecified (principal) | CPT/HCPCS: A0425; A0427 ==

== ENCOUNTER 2017-01-12 09:27 | Outpatient (CLI) | payer MEDICARE, MEDICAID | END 2017-01-12 09:28 | disposition home or self-care (01) | LOC: DI 09:27 | PROVIDERS: ATTEND Internal Medicine Nephrology | DX: I38 Endocarditis, valve unspecified (principal); A41.51 Sepsis due to Escherichia coli [E. coli]; I51.7 Cardiomegaly | CPT/HCPCS: 93306 ==

== ENCOUNTER 2017-04-26 06:35 | Outpatient (CLI) | payer MEDICARE, MEDICAID | END 2017-04-26 06:36 | disposition critical access hospital (66) | LOC: EMS 06:35 | PROVIDERS: ATTEND Surgery | DX: R06.02 Shortness of breath (principal) | CPT/HCPCS: A0425; A0427 ==

== ENCOUNTER 2017-04-26 06:53 | Emergency (ER) | payer MEDICARE, MEDICAID ==
[2017-04-26] MEDS ORDERED: NITROGLYCERIN 2% PASTE TOP STA (06:58)
[2017-04-26] MEDS ORDERED: NITROGLYCERIN 2% PASTE TOP ONE (07:05)
[2017-04-26] MEDS ORDERED: SODIUM CHLORIDE FLUSH 0.9% 10 ML SYRINGE IVP ONE ×4 (07:12→10:28)
[2017-04-26] MEDS ORDERED: FUROSEMIDE 40 MG/4 ML VIAL IVP STA (07:14)
--- NOTE | 2017-04-26 07:14 | ED Physician Documentation ---
PD HPI DYSPNEA - Stated complaint Stated Complaint: SOA - Chief complaint Chief Complaint: Resp - History obtained from History obtained from: Patient, EMS - History of Present Illness Timing - onset: Today Timing - onset during: Sleep Timing - duration: Hours Timing - details: Abrupt onset, Still present Similar symptoms before: Diagnosis (pneumonia/CHF/COPD) Recently seen: Other (dialysed 2 days ago) - Additional information Additional information: 66-year-old female with a history of intermittent atrial fibrillation on aspirin for anticoagulation and on dialysis for stage IV kidney disease has developed acute respiratory distress this morning. She has a history of COPD and was last dialyzed 2 days ago. The patient is not able to provide additional history and further history is gleaned from the medics report. The report indicates this patient's symptoms began around 4 AM and on their arrival she was in respiratory distress with hypoxia on a non-rebreather mask at 69%. They administered albuterol and ipratropium as well as IM methylprednisolone 125 mg in the patient improved to 90%. She remained tachycardic in a sinus rhythm at 130. Review of Systems Unable to obtain: AMS PD PAST MEDICAL HISTORY - Past Medical History Cardiovascular: Congestive heart failure, Hypertension, Coronary artery disease , Atrial fibrillation Respiratory: COPD, Shortness of breath, Sleep apnea, CPAP use Neuro: Headache/migraine Endocrine/Autoimmune: None, Other GI: GERD, Crohn's disease : None, Renal insuffiency, Frequency HEENT: Macular degeneration Psych: Depression, Anxiety Musculoskeletal: Fatigue, Chronic back pain Derm: None - Past Surgical History Past Surgical History: Yes General: Cholecystectomy, Appendectomy Ortho: Hip replacement /[employer]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 Cardiovascular: Coronary stent, Cardiac catheterization HEENT: Cataracts, Tonsil/Adenoidectomy - Present Medications Home Medications: Ambulatory Orders Medication Instructions Recorded Confirmed Aspirin [Aspir-Low] 81 mg PO DAILY 02/19/16 10/22/16 Metoprolol Tartrate 50 mg PO BID 02/19/16 10/22/16 Sertraline [Zoloft] 50 mg PO DAILY 02/19/16 10/22/16 Metolazone 2.5 mg PO DAILY 09/01/16 10/22/16 Furosemide 40 mg PO BID 10/11/16 10/22/16 Allopurinol 200 mg PO DAILY 10/22/16 10/22/16 Gabapentin 300 mg PO TID 10/22/16 10/22/16 Pantoprazole [Protonix] 40 mg PO DAILY 10/22/16 10/22/16 Oxycodone HCl/Acetaminophen 1 tab PO Q4HR PRN 10/23/16 10/23/16 [Oxycodone-Acetaminophen 10-325] Temazepam 15 mg PO QPM 10/23/16 10/23/16 Cefuroxime Axetil [Ceftin] 250 mg PO Q12H #10 tablet 10/26/16 Ipratropium/Albuterol [Duoneb] 3 ml INH TID #90 neb 10/26/16 - Allergies Allergies/Adverse Reactions: Allergies Allergy/AdvReac Type Severity Reaction Status Date / Time Penicillins Allergy Hives Verified 10/09/16 12:07 povidone-iodine Allergy Rash Verified 10/09/16 12:07 [From Betadine] soap * [From Betadine] Allergy Rash Verified 10/09/16 12:07 Sulfa (Sulfonamide Allergy Rash Verified 10/09/16 12:07 Antibiotics) mushrooms Allergy Severe Anaphylaxis Uncoded 10/11/16 10:38 IV Contrast Allergy Rash Uncoded 10/09/16 12:07 - Social History Does the pt smoke?: No Smoking Status: Former smoker Does the pt drink ETOH?: No Does the pt have substance abuse?: No - Immunizations Immunizations are current?: Yes PD ED PE NORMAL - Vitals Vital signs reviewed: Yes (febrile and tachypneic) - General General: Well developed/nourished, Other (The patient is obtunded and not able to answer questions. ) - HEENT HEENT: Atraumatic, PERRL - Neck Neck: Supple, no meningeal sign, No bony TTP - Cardiac Cardiac: Other (tachy to 130 regular) - Respiratory Respiratory: Other (tachypneic with diminished breath sounds and scattered rhonchi and wheezes. ) - Abdomen Abdomen: Soft, Non tender - Back Back: No CVA TTP, No spinal TTP - Derm Derm: Normal color, Warm and dry, No rash - Extremities Extremities: No deformity, No edema - Neuro Neuro: No motor deficit, No sensory deficit, Other (minimal response) Results - Vitals Vitals: Vital Signs - 24 hr 04/26/17 04/26/17 04/26/17 06:56 06:59 07:56 Temperature 38.0 C H Heart Rate 75 130 H 132 H Respiratory 36 H 32 H 29 H Rate Blood Pressure 164/92 H 149/88 H O2 Saturation 93 96 95 04/26/17 08:42 Temperature Heart Rate 117 H Respiratory 14 Rate Blood Pressure 114/76 O2 Saturation 97 Oxygen O2 Source BIPAP - EKG (time done) 0708 Rate: Rate (enter#) (132) Rhythm: Sinus tachycardia Ischemia: Non specific changes Compare to prior EKG: Changed from prior EKG (SPT 10-22-16 rate has increased) Computer interpretation: Agree with computer - Labs Labs: Laboratory Tests 04/26/17 04/26/17 04/26/17 07:30 07:30 07:30 WBC 9.9 RBC 4.00 L Hgb 12.6 Hct 38.4 MCV 96.2 MCH 31.5 H MCHC 32.7 RDW 13.9 Plt Count 224 MPV 7.7 L Neut # 7.2 H Lymph # 2.3 Teller # 0.4 Eos # 0.0 Baso # 0.0 Absolute Nucleated RBC 0.00 Nucleated RBC % 0.0 Sodium 132 L Potassium 2.8 L Chloride 91 L Carbon Dioxide 25 Anion Gap 16.0 H BUN 43 H Creatinine 3.8 H Estimated GFR (MDRD) 12 L Glucose 145 H Calcium 8.9 Total Bilirubin 0.6 AST 25 ALT 13 Alkaline Phosphatase 114 Troponin I 0.05 B-Natriuretic Peptide Total Protein 7.2 Albumin 3.9 Globulin 3.3 Albumin/Globulin Ratio 1.2 Lipase 38 04/26/17 07:30 WBC RBC Hgb Hct MCV MCH MCHC RDW Plt Count MPV Neut # Lymph # [place] # Eos # Baso # Absolute Nucleated RBC Nucleated RBC % Sodium Potassium Chloride Carbon Dioxide Anion Gap BUN Creatinine Estimated GFR (MDRD) Glucose Calcium Total Bilirubin AST ALT Alkaline Phosphatase Troponin I B-Natriuretic Peptide 183 H Total Protein Albumin Globulin Albumin/Globulin Ratio Lipase - Rads (name of study) 2 view chest Radiology: Prelim report reviewed (Impression: Moderate right perihilar/ infrahilar airspace opacity may reflect pneumonia versus asymmetric edema in the proper clinical setting.), EMP read indepedently, See rad report Procedures - IVC sono (time) 0715 Bedside IVC sono: IVC measures (cm) (1.34), IVC collapsed c insp (cm) (complete) , Dehydration PD MEDICAL DECISION MAKING - ED course Complexity details: reviewed old records, reviewed results, re-evaluated patient , considered differential, d/w patient ED course: 66-year-old female on dialysis with history of atrial fibrillation COPD has developed acute respiratory distress and appears to have pneumonia on her chest x-ray. She is in respiratory failure when she arrives to the emergency department and she is started on BiPAP with improvement in all of her vitals. She is initially given Lasix 40 mg intravenously on arrival to the emergency department with the thought that she may have some failure. This is not confirmed by interrogation of the inferior vena cava. She has had similar appearance on her chest x-ray previously with treatment for pneumonia she improved. The patient is critically ill we do not have critical care unit beds here and I have asked the triple valve tester at [facility] to care for the patient in the hospital. Dr. Arturo Davis has graciously agreed to accept the patient in transfer.She is found to be hypokalemic and is administered potassium intravenously and orally as well. Departure - Departure Disposition: 02 Transfer Acute Care Hosp Clinical Impression: COPD with exacerbation, Hypokalemia Right lower lobe pneumonia Qualifiers: Pneumonia type: due to unspecified organism Qualified Code(s): J18.1 - Lobar pneumonia, unspecified organism Condition: Serious
[2017-04-26] MEDS ORDERED: FUROSEMIDE 40 MG/4 ML VIAL ONE (07:15)
[2017-04-26] MEDS ORDERED: SODIUM CHLORIDE INHALATION 3 ML NEB ONE (07:30)
[2017-04-26] MEDS ORDERED: LEVALBUTEROL 1.25 MG/0.5 ML NEB INH ONE (07:30)
[2017-04-26] MEDS ORDERED: ACETAMINOPHEN 1,000 MG/100 ML 100 ML IV STA (07:34)
[2017-04-26] MEDS ORDERED: ACETAMINOPHEN 1,000 MG/100 ML 100 ML IV ONE (07:34)
--- NOTE | 2017-04-26 07:35 | XRAY Preliminary Report ---
Exam: XR CHEST 1 VIEW IMPRESSION: Moderate right perihilar/infrahilar airspace opacity may reflect pneumonia versus asymmet ofelia edema in the proper clinical setting. [facility] SITE ID: [id number]
--- NOTE | 2017-04-26 07:38 | XRAY Report ---
EXAM: CHEST RADIOGRAPHY EXAM DATE: 04/26/2017 07:24 AM. CLINICAL HISTORY: Dyspnea. COMPARISON: 10/24/2016. TECHNIQUE: 1 view. FINDINGS: Lungs/Pleura: Moderate right perihilar/infrahilar airspace opacity. Left lung grossly clear. Low volu mes. No gross pneumothorax or large effusion. Mediastinum: Within exam limitations, the cardiomediastinal contour is normal. Other: None. IMPRESSION: Moderate right perihilar/infrahilar airspace opacity may reflect pneumonia versus asymmet ofelia edema in the proper clinical setting. [facility] Referring Provider Line: [phone] SITE ID: [id number]
[2017-04-26 07:41] LABS: BASOPHILS % (AUTO) 0.3 %; EOSINOPHILS % (AUTO) 0.4 %; HCT - HEMATOCRIT 38.4 % (37.0-47.0); HGB - HEMOGLOBIN 12.6 g/dL (12.0-16.0); LYMPHOCYTES # (AUTO) 2.3 10^3/uL (1.5-3.5); LYMPHOCYTES % (AUTO) 23.2 %; MEAN CORPUSCULAR HEMOGLOBIN 31.5 pg (27.0-31.0); MEAN CORPUSCULAR HGB CONC 32.7 g/dL (32.0-36.0); MEAN CORPUSCULAR VOLUME 96.2 fL (81.0-99.0); MEAN PLATELET VOLUME 7.7 fL (7.9-10.8); MONOCYTES # (AUTO) 0.4 10^3/uL (0.0-1.0); MONOCYTES % (AUTO) 3.9 %; NEUTROPHILS # (AUTO) 7.2 10^3/uL (1.5-6.6); NEUTROPHILS % (AUTO) 72.2 %; RED CELL DISTRIBUTION WIDTH 13.9 % (12.0-15.0); UNCORRECTED WHITE BLOOD COUNT 9.9 x10^3/uL; WHITE BLOOD COUNT 9.9 x10^3/uL (4.8-10.8)
[2017-04-26 07:56] LABS: ALBUMIN/GLOBULIN RATIO 1.2 (1.0-2.2); BILIRUBIN,TOTAL 0.6 mg/dL (0.2-1.0); CALCIUM 8.9 mg/dL (8.5-10.3); CREATININE 3.8 mg/dL (0.4-1.0); POTASSIUM 2.8 mmol/L (3.5-5.0); TOTAL PROTEIN 7.2 g/dL (6.7-8.2)
[2017-04-26] MEDS ORDERED: cefTRIAXone 1 GM VIAL IM STA (08:22)
[2017-04-26] MEDS ORDERED: AZITHROMYCIN INJ 500 MG in SODIUM CHLORIDE 0.9% 250 ML IV STA (08:23)
[2017-04-26] MEDS ORDERED: POTASSIUM BICARB 25 MEQ TABLET PO STA (08:29)
[2017-04-26] MEDS ORDERED: POTASSIUM CHLOR 10 MEQ/100 ML 10 MEQ/100 ML BAG IV ONE ×2 (08:29→08:53)
[2017-04-26] MEDS ORDERED: cefTRIAXone 1 GM VIAL ONE (08:53)
[2017-04-26] MEDS ORDERED: POTASSIUM BICARB 25 MEQ TABLET PO ONE (08:54)
[2017-04-26] MEDS ORDERED: cefTRIAXone 1 GM in SODIUM CHLORIDE 0.9% MINIBAG 100 ML IV STA (08:58)
[2017-04-26 10:18] VITALS: BP 104/55
[2017-04-26] MEDS ORDERED: MORPHINE 2 MG/ML SYRINGE IVP STA (10:21)
[2017-04-26 10:25] LABS: VBG BASE EXCESS -2.6 mmol/L (-2 - +2); VBG OXYGEN SATURATION 88.6 % (60-80); VBG PH 7.282 (7.31-7.41); VBG TOTAL CO2 26.2 mmol/L (24-29)
[2017-04-26] MEDS ORDERED: MORPHINE 2 MG/ML SYRINGE ONE (10:28)
[2017-04-26 10:33] LABS: ABG ANALYSIS TIME 1013; ABG BASE EXCESS -2.7 mmol/L (-2.0-3.0); ABG HCO3 24.1 mmol/L (22.0-26.0); ABG OXYGEN SATURATION 97 % (94-98); ABG PCO2 51 mmHg (34-45); ABG PH 7.29 (7.35-7.45); ABG PO2 133 mmHg (80-100); ABG TCO2 25.7 MMOL/L (21.0-29.0)
[2017-04-26 10:34] LABS: ABG EXPIRATORY POS AIRWAY P 5 cmH2O; ABG INSPIRATORY POS AIRWAY P 12 cmH2O; ABG MODE OF VENTILATION SYNCHRONOUS/TIMES; ABG O2 DEVICE BiPAP; ABG PRESSURE SUPPORT VENT 7 cmH2O; ABG RESPIRATORY RATE 10 b/min; ABG SATURATION PULSE OXIMETRY% 98 %; ABG SITE OF DRAW RIGHT FEMORAL
== END 2017-04-26 10:56 | disposition short-term general hospital (02) ==
LOC: EDBD → EDUNIT# → ED 06:53
DX: J44.1 Chronic obstructive pulmonary disease with (acute) exacerbation (principal); E86.0 Dehydration; J18.9 Pneumonia, unspecified organism; J96.90 Respiratory failure, unspecified, unspecified whether with hypoxia or hypercapnia; R00.0 Tachycardia, unspecified; I13.0 Hypertensive heart and chronic kidney disease with heart failure and stage 1 through stage 4 chronic kidney disease, or unspecified chronic kidney disease; N18.4 Chronic kidney disease, stage 4 (severe); I50.9 Heart failure, unspecified; Z99.2 Dependence on renal dialysis; I25.10 Atherosclerotic heart disease of native coronary artery without angina pectoris; F17.200 Nicotine dependence, unspecified, uncomplicated; E87.6 Hypokalemia; Z95.5 Presence of coronary angioplasty implant and graft; Z96.649 Presence of unspecified artificial hip joint; Z79.82 Long term (current) use of aspirin
CPT/HCPCS: 36415; 36600; 51702; 71010; 80053; 82803; 83690; 83880; 84484; 85025; 87040; 93005; 96365; 96367; 96368; 96372; 96375; 99285; A9270; J0131; J2270

== ENCOUNTER 2017-06-20 12:02 | Outpatient (CLI) | payer MEDICARE, MEDICAID | END 2017-06-20 12:03 | disposition short-term general hospital (02) | LOC: EMS 12:02 | PROVIDERS: ATTEND Surgery | DX: R06.02 Shortness of breath (principal) | CPT/HCPCS: A0425; A0427 ==

== ENCOUNTER 2017-08-15 06:02 | Outpatient (CLI) | payer MEDICARE, MEDICAID | END 2017-08-15 06:03 | disposition critical access hospital (66) | LOC: EMS 06:02 → EDUNIT# 06:02 → EMS 06:03 | PROVIDERS: ATTEND Surgery | DX: R68.83 Chills (without fever) (principal) | CPT/HCPCS: A0425; A0427 ==

== ENCOUNTER 2017-08-15 06:27 | Inpatient (IN) | payer MEDICARE, MEDICAID ==
[2017-08-15] MEDS ORDERED: SODIUM CHLORIDE 0.9% 1,000 ML IV ONE (06:35)
--- NOTE | 2017-08-15 06:58 | XRAY Preliminary Report ---
Exam: XR CHEST 1 VIEW X-RAY IMPRESSION: 1. Small lung volumes with cardiomegaly and asymmetric infiltrates or edema, right greater than left. [facility] SITE ID: [id number]
--- NOTE | 2017-08-15 06:58 | XRAY Report ---
EXAM: CHEST RADIOGRAPHY EXAM DATE: 08/15/2017 06:52 AM. CLINICAL HISTORY: Fever, cough. Shortness of breath and chills. COMPARISON: 10/24/2016. TECHNIQUE: 1 view. FINDINGS: Lungs/Pleura: Small lung volumes. Bilateral infiltrates or edema, right greater than left. No definit e pleural effusion seen. No pneumothorax. Mediastinum: Mild cardiomegaly. Aortic atherosclerosis. Other: None. IMPRESSION: 1. Small lung volumes with cardiomegaly and asymmetric infiltrates or edema, right greater than left. [facility] Referring Provider Line: [phone] SITE ID: [id number]
[2017-08-15 07:03] LABS: BASOPHILS % (AUTO) 0.4 %; EOSINOPHILS % (AUTO) 0.5 %; HGB - HEMOGLOBIN 10.5 g/dL (12.0-16.0); LYMPHOCYTES # (AUTO) 0.4 10^3/uL (1.5-3.5); LYMPHOCYTES % (AUTO) 4.2 %; MEAN CORPUSCULAR HEMOGLOBIN 31.9 pg (27.0-31.0); MEAN CORPUSCULAR HGB CONC 32.9 g/dL (32.0-36.0); MEAN CORPUSCULAR VOLUME 96.8 fL (81.0-99.0); MEAN PLATELET VOLUME 7.8 fL (7.9-10.8); MONOCYTES # (AUTO) 0.6 10^3/uL (0.0-1.0); MONOCYTES % (AUTO) 6.5 %; NEUTROPHILS # (AUTO) 8.6 10^3/uL (1.5-6.6); NEUTROPHILS % (AUTO) 88.4 %; PLT - PLATELET COUNT 170 10^3/uL (130-450); RED BLOOD COUNT 3.28 10^6/uL (4.20-5.40); WHITE BLOOD COUNT 9.7 x10^3/uL (4.8-10.8)
--- NOTE | 2017-08-15 07:14 | ED Physician Documentation ---
PD HPI DYSPNEA - Stated complaint Stated Complaint: CHILLS - Chief complaint Chief Complaint: General - History obtained from History obtained from: Patient - History of Present Illness Timing - onset: Last night Timing - onset during: Rest Timing - duration: Hours Timing - details: Abrupt onset, Still present Inciting event(s): URI Improved by: O2, Rest, Sitting up Worsened by: Exertion, Coughing Associated symptoms: Fever, Cough, Diaphoresis Similar symptoms before: Diagnosis (pneumonia) Recently seen: Other (dialysed yesterday) - Additional information Additional information: 66-year-old female with end-stage renal disease on dialysis as developed acute fever and chills and cough last night. She states she dialyzed yesterday and was well during dialysis and fever and chills developed in the evening. She is having some shortness of breath associated with this as well. Review of Systems Constitutional: reports: Fever, Chills, Myalgias, Weight Loss Eyes: denies: Decreased vision Ears: denies: Ear pain Nose: reports: Congestion. denies: Rhinorrhea / runny nose Throat: denies: Sore throat Cardiac: denies: Chest pain / pressure, Palpitations Respiratory: reports: Dyspnea, Cough GI: denies: Abdominal Pain, Nausea, Vomiting : denies: Dysuria, Frequency Skin: denies: Rash Musculoskeletal: denies: Neck pain, Back pain, Extremity pain Neurologic: reports: Generalized weakness. 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 Cardiovascular: Coronary stent, Cardiac catheterization HEENT: Cataracts, Tonsil/Adenoidectomy - Present Medications Home Medications: Ambulatory Orders Medication Instructions Recorded Confirmed Aspirin [Aspir-Low] 81 mg PO DAILY 02/19/16 10/22/16 Metoprolol Tartrate 50 mg PO BID 02/19/16 10/22/16 Sertraline [Zoloft] 50 mg PO DAILY 02/19/16 10/22/16 metOLazone [Metolazone] 2.5 mg PO DAILY 09/01/16 10/22/16 Furosemide 40 mg PO BID 10/11/16 10/22/16 Allopurinol 200 mg PO DAILY 10/22/16 10/22/16 Gabapentin 300 mg PO TID 10/22/16 10/22/16 Pantoprazole [Protonix] 40 mg PO DAILY 10/22/16 10/22/16 Oxycodone HCl/Acetaminophen 1 tab PO Q4HR PRN 10/23/16 10/23/16 [Oxycodone-Acetaminophen 10-325] Temazepam 15 mg PO QPM 10/23/16 10/23/16 Ipratropium/Albuterol [Duoneb] 3 ml INH TID #90 neb 10/26/16 cefUROXime axetil [Ceftin] 250 mg PO Q12H #10 tablet 10/26/16 - Allergies Allergies/Adverse Reactions: Allergies Allergy/AdvReac Type Severity Reaction Status Date / Time Penicillins Allergy Hives Verified 10/09/16 12:07 povidone-iodine Allergy Rash Verified 10/09/16 12:07 [From Betadine] soap * [From Betadine] Allergy Rash Verified 10/09/16 12:07 Sulfa (Sulfonamide Allergy Rash Verified 10/09/16 12:07 Antibiotics) mushrooms Allergy Severe Anaphylaxis Uncoded 10/11/16 10:38 IV Contrast Allergy Rash Uncoded 10/09/16 12:07 - Social History Does the pt smoke?: No Smoking Status: Former smoker Does the pt drink ETOH?: No Does the pt have substance abuse?: No - Immunizations Immunizations are current?: Yes PD ED PE NORMAL - Vitals Vital signs reviewed: Yes (tachy ) - General General: Well developed/nourished, Other (The patient is lying slumped in the bed but responsive to voice. She is hot to the touch and diaphoretic. ) - HEENT HEENT: Atraumatic, PERRL, EOMI, Ears normal - Neck Neck: Supple, no meningeal sign, No bony TTP - Cardiac Cardiac: No murmur, Other (tachy to 100) - Respiratory Respiratory: Other (tachypneic at rest with rhonchi on the rigth upper and lower. ) - Abdomen Abdomen: Soft, Non tender - Back Back: No CVA TTP, No spinal TTP - Derm Derm: Normal color, Warm and dry, No rash - Extremities Extremities: No deformity, No edema - Neuro Neuro: Alert and oriented X 3, No motor deficit, No sensory deficit, Normal speech Eye Opening: Spontaneous Motor: Obeys Commands Verbal: Oriented GCS Score: 15 - Psych Psych: Normal mood, Normal affect Results - Vitals Vitals: Vital Signs - 24 hr 08/15/17 08/15/17 08/15/17 06:33 07:20 07:33 Temperature 36.9 C 39.1 C H Heart Rate 113 H 108 H Respiratory 22 20 Rate Blood Pressure 127/72 114/80 O2 Saturation 97 95 Oxygen O2 Source Nasal cannula Oxygen Flow Rate 5 - Labs Labs: Laboratory Tests 08/15/17 08/15/17 08/15/17 06:55 06:55 06:55 WBC 9.7 RBC 3.28 L Hgb 10.5 L Hct 31.7 L MCV 96.8 MCH 31.9 H MCHC 32.9 RDW 15.0 Plt Count 170 MPV 7.8 L Neut # 8.6 H Lymph # 0.4 L [place] # 0.6 Eos # 0.0 Baso # 0.0 Absolute Nucleated RBC 0.00 Nucleated RBC % 0.0 Sodium 137 Potassium 4.1 Chloride 95 L Carbon Dioxide 27 Anion Gap 15.0 H BUN 34 H Creatinine 2.9 H Estimated GFR (MDRD) 16 L Glucose 122 H Lactic Acid Calcium 8.6 Total Bilirubin 0.6 AST 26 ALT 18 Alkaline Phosphatase 101 Troponin I 0.07 B-Natriuretic Peptide Total Protein 6.7 Albumin 3.6 Globulin 3.1 Albumin/Globulin Ratio 1.2 Lipase 38 Influenza A (Rapid) Influenza B (Rapid) Influenza Types A,B Ag 08/15/17 08/15/17 08/15/17 06:55 06:55 07:13 WBC RBC Hgb Hct MCV MCH MCHC RDW Plt Count MPV Neut # Lymph # [place] # Eos # Baso # Absolute Nucleated RBC Nucleated RBC % Sodium Potassium Chloride Carbon Dioxide Anion Gap BUN Creatinine Estimated GFR (MDRD) Glucose Lactic Acid 1.8 Calcium Total Bilirubin AST ALT Alkaline Phosphatase Troponin I B-Natriuretic Peptide 295 H Total Protein Albumin Globulin Albumin/Globulin Ratio Lipase Influenza A (Rapid) Negative Influenza B (Rapid) Negative Influenza Types A,B Ag - - Rads (name of study) 1 view chest Radiology: Prelim report reviewed (Impression: 1. Small lung volumes with cardiomegaly and asymmetric infiltrates or edema, right greater than left.), EMP read indepedently, See rad report Procedures - IVC sono (time) 0710 Bedside IVC sono: IVC measures (cm) (1.84), IVC collapsed c insp (cm) (1.19), Collapsibility index (0.35), Euvolemia PD MEDICAL DECISION MAKING - ED course Complexity details: reviewed old records, reviewed results, re-evaluated patient , considered differential, d/w patient ED course: 66-year-old female on dialysis Has a history of atrial fibrillation and congestive heart failure. She has developed acute dyspnea with cough and fever diaphoresis and myalgias beginning last night. On her chest x-ray today she appears to have infiltrate on the right consistent with findings on examination. Her inferior vena cava is interrogated she does appear to be collapsing well with adequate volume. I do not believe she is in failure with this episode. I have asked our hospitalist Dr. Jackson to admit the patient to this facility for antibiotic therapy with the thought that she could likely improve over the next 48 hours and be discharged to receive her dialysis as usual on Thursday. Departure - Departure Disposition: 66 [facility] DC/Xfer Clinical Impression: Pneumonia Qualifiers: Pneumonia type: due to unspecified organism Laterality: right Lung location: middle lobe of lung Qualified Code(s): J18.1 - Lobar pneumonia, unspecified organism
[2017-08-15 07:16] LABS: ALBUMIN 3.6 g/dL (3.2-5.5); ALBUMIN/GLOBULIN RATIO 1.2 (1.0-2.2); BILIRUBIN,TOTAL 0.6 mg/dL (0.2-1.0); CALCIUM 8.6 mg/dL (8.5-10.3); CREATININE 2.9 mg/dL (0.4-1.0); TOTAL PROTEIN 6.7 g/dL (6.7-8.2)
[2017-08-15] MEDS ORDERED: ACETAMINOPHEN 325 MG TABLET PO STA (07:21)
[2017-08-15] MEDS ORDERED: AZITHROMYCIN INJ 500 MG in SODIUM CHLORIDE 0.9% 250 ML IV STA (07:54)
[2017-08-15] MEDS ORDERED: cefTRIAXone 1 GM in SODIUM CHLORIDE 0.9% MINIBAG 100 ML IV STA (07:54)
[2017-08-15] MEDS ORDERED: oxyCODONE 5 MG TABLET PO STA (07:59)
[2017-08-15 08:01] LABS: BILIRUBIN,URINE NEGATIVE (NEGATIVE); GLUCOSE, URINE (UA) NEGATIVE (NEGATIVE); KETONES,URINE (UA) NEGATIVE (NEGATIVE); LEUKOCYTE ESTERASE, URINE MODERATE (NEGATIVE); NITRITE,URINE NEGATIVE (NEGATIVE); OCCULT BLOOD,URINE MODERATE (NEGATIVE); PROTEIN,URINE NEGATIVE (NEGATIVE); UROBILINOGEN,URINE 0.2 (NORMAL) E.U./dL (NORMAL)
[2017-08-15 08:15] LABS: CLARITY,URINE HAZY (CLEAR)
[2017-08-15 08:25] LABS: BACTERIA,URINE Moderate /HPF (None Seen); RBC,URINE 0-5 /HPF (0-5); SQUAMOUS EPITHELIAL CELL,UR MOD Squamous (<= Few)
[2017-08-15] MEDS ORDERED: FAMOTIDINE 20 MG TABLET PO SCH (09:00)
[2017-08-15] MEDS ORDERED: SODIUM CHLORIDE 0.9% 1,000 ML IV SCH (09:00)
[2017-08-15] MEDS: SODIUM CHLORIDE FLUSH 0.9% 10 ML SYRINGE IVP SCH ×2 (10:09→21:10)
[2017-08-15] MEDS: POLYETHYLENE GLYCOL 3350 17 GM PACKET PO SCH (10:10)
[2017-08-15] MEDS: HEPARIN 5,000 UNIT/ML VIAL SUBQ SCH ×2 (10:53→21:11)
--- NOTE | 2017-08-15 12:04 | HISTORY & PHYSICAL EXAMINATION ---
Chief Complaint - Chief Complaint Chief Complaint: fevers, SOB History of Present Illness - Admitted From Admitted From:: ED - History Obtained From Records Reviewed: yes History obtained from: chart review, patient Exam Limitations: none - History of Present Illness HPI Comment/Other: Skyla Avila is an ill-appearing 66-year old female with a past medical history of chronic back pain, back injury, a history of 2 back surgeries, CHF, HTN, CAD, atrial fibrillation, COPD, SOB, sleep apnea-no CPAP use, headaches, GERD, Crohn's disease, renal insufficiency, macular degeneration, depression, anxiety coronary stents, and ESRD requiring hemodialysis MWF. Patient felt normal yesterday and attended her usual hemodialysis session. Early this AM around 5AM she awoke with chills, rigors, and mild SOB. She took 2 tylenol, but these symptoms persisted, so 911 was called by her sister, Charu who she lives with and she was brought to the ED. Once in the ED she was found to have bilateral infiltrates right greater than left. History - Past Medical History Cardiovascular: reports: Congestive heart failure, Hypertension, Coronary artery disease, Atrial fibrillation Respiratory: reports: COPD, Shortness of breath, Sleep apnea, CPAP use Neuro: reports: Headache/migraine Endocrine/Autoimmune: reports: Other (ESRD) GI: reports: GERD, Ulcers, Crohn's disease : reports: Renal insuffiency, Frequency HEENT: reports: Macular degeneration Psych: reports: Depression, Anxiety Musculoskeletal: reports: Fatigue, Chronic back pain Derm: reports: None MRSA Hx?: No - Past Surgical History General: reports: Cholecystectomy, Appendectomy Ortho: reports: Hip replacement, Knee replacement /DISTRIBUTION ASSOCIATE: reports: Hysterectomy Cardiovascular: reports: Coronary stent, Cardiac catheterization HEENT: reports: Cataracts, Tonsil/Adenoidectomy - Family & Social History Family History: Mother: , Renal Disease/Failure, Father: , CAD, Sister: Alive and Well, , Cancer, Brother: Family History Comment/Other: Mother of renal complications, father of cardiac arrest, sister after complications from Alzheimers and Parkinsons, brother at age 15-years from PNA and measles and was born with severe downs syndrome. One sister, Charu remains alive and well and has had colon and breast CA. 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 Came to the [place] a few years ago to live with her sister due to her failing health. She has 3 daughters, is . She quit smoking ~10 years ago, denies alcohol or illicit drug use. She attends hemodialysis MWF each week , in which her sister transports her there. She has 2 dogs at home, does all her own ADLs and can ambulate independently. - Substance History Use: Uses substance without health or social issues: NONE Abuse: Recurrent use of substance despite neg consequences: NONE Dependence: Experiences withdrawal or developed tolerances: NONE - POLST Patient has POLST: No POLST Status: Full Code Meds/Allgy - Home Medications Home Medications: Ambulatory Orders Medication Instructions Recorded Confirmed Aspirin [Aspir-Low] 81 mg PO QPM 02/19/16 08/15/17 Sertraline [Zoloft] 100 mg PO DAILY 02/19/16 08/15/17 Furosemide 80 mg PO BID 10/11/16 08/15/17 Allopurinol 100 mg PO DAILY 10/22/16 08/15/17 Gabapentin 300 mg PO TID 10/22/16 08/15/17 Pantoprazole [Protonix] 40 mg PO QDAC 10/22/16 08/15/17 Temazepam 15 - 30 mg PO QPM PRN 10/23/16 08/15/17 Cholecalciferol (Vitamin D3) 2,000 units PO DAILY 08/15/17 08/15/17 [Vitamin D3] Fluticasone/Salmeterol [Advair 1 puffs INH BID 08/15/17 08/15/17 250-50 Diskus] Garlic 1,000 mg PO DAILY 08/15/17 08/15/17 Magnesium Oxide [Mag Ox] 400 mg PO DAILY 08/15/17 08/15/17 Multivitamin [Theragran] 1 tab PO DAILY 08/15/17 08/15/17 [place]-3/Dha/Epa/Fish Oil [Fish Oil 300 mg PO DAILY 08/15/17 08/15/17 1,000 mg Softgel] Oxycodone HCl/Acetaminophen 1 tab PO Q4H PRN 08/15/17 08/15/17 [Oxycodone-Acetaminophen 5-325] Turmeric Root Extract [Turmeric] 500 mg PO DAILY 08/15/17 08/15/17 - Allergies Allergies/Adverse Reactions: Allergies Allergy/AdvReac Type Severity Reaction Status Date / Time Penicillins Allergy Hives Verified 10/09/16 12:07 povidone-iodine Allergy Rash Verified 10/09/16 12:07 [From Betadine] soap * [From Betadine] Allergy Rash Verified 10/09/16 12:07 Sulfa (Sulfonamide Allergy Rash Verified 10/09/16 12:07 Antibiotics) mushrooms Allergy Severe Anaphylaxis Uncoded 10/11/16 10:38 IV Contrast Allergy Rash Uncoded 10/09/16 12:07 Review of Systems - Constitutional Constitutional: reports: Fatigue, Fever, Chills, Weakness - Eyes Eyes: reports: Corrective lenses - Ears, Nose & Throat Ears, Nose & Throat: reports: Nosebleeds, Dentures - Cardiovascular Cariovascular: reports: Irregular heart rate, Edema, Decr. exercise tolerance - Respiratory Respiratory: reports: SOB with exertion. denies: Cough, Sputum production - Gastrointestinal Gastrointestinal: reports: Reflux/heartburn. denies: Abdominal pain, Nausea, Vomiting, Poor appetite - Genitourinary Genitourinary: denies: Dysuria, Frequency, Urgency - Musculoskeletal Musculoskeletal: reports: Back pain (chronic) - Neurological Neurological: reports: General weakness, Pre-existing deficit - Psychiatric Psychiatric: reports: Depression, Anxiety - Endocrine Endocrine: reports: Intolerance to cold - Hematologic/Lymphatic Hematologic/Lymphatic: reports: Anemia - All Other Systems All Other Systems: reports: Reviewed and negative Exam - Vital Signs Reviewed Vital Signs: Yes Vital Signs: Vital Signs x48h Temp Pulse Pulse Resp BP BP Pulse Ox 08/15/17 08:48 37.4 C 92 16 94/55 L 95 08/15/17 08:20 38.9 C H 94 20 107/54 L 95 - Physical Exam General Appearance: positive: No acute distress, Alert, Lethargic (difficult to arouse at times.) Eyes Bilateral: positive: Normal inspection, PERRL ENT: positive: ENT inspection nml, Pharynx nml, Dry mucous membranes Neck: positive: Nml inspection, Thyroid nml, No JVD, Stiff neck Respiratory: positive: Chest non-tender, Rhonchi Cardiovascular: positive: Irregularly irregular, Systolic murmur, Decreased pulse(s) Peripheral Pulses: positive: 1+ Abdomen: positive: Non-tender, No organomegaly Back: positive: Nml inspection Skin: positive: No rash, Warm, Dry Extremities: positive: Non-tender, Full ROM, Nml appearance, Pedal edema (mild) Neurologic/Psychiatric: positive: Oriented x3, CN's nml (2-12), Motor nml, Weakness, Sensory loss, Slurred/abnml speech, Depressed mood/affect Reflexes: Bicep (R): 2+, Bicep (L): 2+ Conclusion/Plan - Problem List (1) Pneumonia Conclusion/Plan: A chest x-ray was completed in the ED which showed right greater than left infiltrates. Patient also presented with a fever, chills, and fatigue. She admits to feeling normal yesterday during dialysis. Plan: Start antibiotics and await culture results. Qualifiers: Pneumonia type: due to unspecified organism Laterality: right Lung location: middle lobe of lung Qualified Code(s): J18.1 - Lobar pneumonia, unspecified organism (2) Fever Conclusion/Plan: Patient had a temp max of 39.1 C, for which she was given tylenol. She has been afebrile since that time. Plan: Continue to monitor mental status and check vital signs. (3) End stage renal disease Conclusion/Plan: Patient currently has ESRD suspected drug induced as she had a "bowel perforation" and was treated at a larger hospital [place] ~[place] years ago. Her kidney function has steadily declined since that time. Plan: Treat pneumonia and plan to discharge Thursday morning to ensure dialysis schedule. (4) Anemia Conclusion/Plan: Upon admission, patient H/H was 10.5/31.7 which is actually her high normal. After chart review, her usual range is 8.8-9. Plan: Monitor labs and transfuse if less than 7. Qualifiers: Anemia type: due to chronic kidney disease Chronic kidney disease stage: on chronic dialysis Qualified Code(s): N18.6 - End stage renal disease; D63.1 - Anemia in chronic kidney disease; D63.1 - Anemia in chronic kidney disease; Z99.2 - Dependence on renal dialysis; Z99.2 - Dependence on renal dialysis; Z99.2 - Dependence on renal dialysis; Z99.2 - Dependence on renal dialysis - Lab Results Lab results reviewed: Yes Fish Bones: 08/16/17 05:45 08/16/17 05:45 - Diagnostic Imaging Results Diagnostic Imaging Results: positive: Final report reviewed Diagnostic Imaging Results Comments: One view CXR: FINDINGS: Lungs/Pleura: Small lung volumes. Bilateral infiltrates or edema, right greater than left. No definite pleural effusion seen. No pneumothorax. Mediastinum: Mild cardiomegaly. Aortic atherosclerosis. Other: None. IMPRESSION: 1. Small lung volumes with cardiomegaly and asymmetric infiltrates or edema, right greater than left. - EKG Results EKG Interpreted Independently: Yes Core Measures - Anticipated LOS I expect patient to be DC'd or transferred within 96 hours.: Yes - DVT/VTE - Prophylaxis VTE/DVT Device ordered at admit?: Yes VTE/DVT Prophylaxis med ordered at admit?: Yes - Stroke - Rehab Assessment Rehab services assessment to be ordered?: No Not Ordered - Medical Reason: Contraindicated - AMI - Statin at Admit Aspirin Prescribed on Admit: Yes
[2017-08-15] MEDS ORDERED: FUROSEMIDE 40 MG TABLET PO SCH ×2 (12:30→18:34)
[2017-08-15 13:27] LABS: PT - PROTHROMBIN TIME 11.2 secs (9.9-12.6)
[2017-08-15] MEDS: VANCOMYCIN INJ 1 GM in SODIUM CHLORIDE 0.9% 250 ML IV SCH (13:44)
[2017-08-15] MEDS: PANTOPRAZOLE 40 MG TABLET PO SCH (13:47)
[2017-08-15] MEDS: SERTRALINE 50 MG TABLET PO SCH (13:47)
[2017-08-15] MEDS: HYDROmorphone 1 MG/ML SYRINGE IVP PRN ×5 (13:55→22:37)
[2017-08-15 15:27] LABS: CRP - C-REACTIVE PROTEIN 4.6 mg/dL (0-1.0)
[2017-08-15 15:30] LABS: CALCIUM 9.1 mg/dL (8.5-10.3); CREATININE 2.9 mg/dL (0.4-1.0)
[2017-08-15] MEDS: SODIUM CHLORIDE FLUSH 0.9% 10 ML SYRINGE IVP PRN ×4 (15:52→22:37)
[2017-08-15 18:07] LABS: MUDS CUTOFF CONCENTRATIONS CUTOFF CONC BELOW:
[2017-08-15 18:09] LABS: BILIRUBIN,URINE NEGATIVE (NEGATIVE); GLUCOSE, URINE (UA) NEGATIVE (NEGATIVE); KETONES,URINE (UA) NEGATIVE (NEGATIVE); LEUKOCYTE ESTERASE, URINE SMALL (NEGATIVE); NITRITE,URINE NEGATIVE (NEGATIVE); OCCULT BLOOD,URINE NEGATIVE (NEGATIVE); PROTEIN,URINE NEGATIVE (NEGATIVE); UROBILINOGEN,URINE 0.2 (NORMAL) E.U./dL (NORMAL)
[2017-08-15 18:17] LABS: CLARITY,URINE HAZY (CLEAR)
[2017-08-15] MEDS: GABAPENTIN 300 MG CAPSULE PO SCH (18:18)
[2017-08-15 18:19] LABS: RBC,URINE None Seen /HPF (0-5)
[2017-08-15 18:20] LABS: AMPHETAMINE SCREEN,URINE NEGATIVE (NEGATIVE); BACTERIA,URINE Few /HPF (None Seen); BENZODIAZEPINES SCREEN, URINE POSITIVE (NEGATIVE); COCAINE SCREEN URINE NEGATIVE (NEGATIVE); METHADONE SCREEN, URINE NEGATIVE (NEGATIVE); METHAMPHETAMINES SCREEN, URINE NEGATIVE (NEGATIVE); OPIATE SCREEN, URINE NEGATIVE (NEGATIVE); OXYCODONE SCREEN, URINE POSITIVE (NEGATIVE); PROPOXYPHENE SCREEN, URINE NEGATIVE (NEGATIVE); SQUAMOUS EPITHELIAL CELL,UR MANY Squamous (<= Few); TRICYCLIC ANTIDEPRESSANT,URINE NEGATIVE (NEGATIVE)
[2017-08-15] MEDS: ASPIRIN EC 81 MG TABLET PO SCH (21:09)
[2017-08-15] MEDS: TEMAZEPAM 15 MG CAPSULE PO PRN (22:37)
[2017-08-16] MEDS: HYDROmorphone 1 MG/ML SYRINGE IVP PRN ×7 (00:24→22:50)
[2017-08-16] MEDS: SODIUM CHLORIDE FLUSH 0.9% 10 ML SYRINGE IVP PRN ×3 (00:25→08:36)
[2017-08-16] MEDS: SODIUM CHLORIDE FLUSH 0.9% 10 ML SYRINGE IVP SCH ×4 (00:25→18:55)
[2017-08-16] MEDS: oxyCOD/ACETAMIN 5 MG/325 MG TABLET PO PRN ×4 (05:23→21:44)
[2017-08-16] MEDS: GABAPENTIN 300 MG CAPSULE PO SCH ×3 (05:23→21:44)
[2017-08-16 05:52] LABS: BASOPHILS % (AUTO) 0.2 %; EOSINOPHILS # (AUTO) 0.1 10^3/uL (0.0-0.7); EOSINOPHILS % (AUTO) 1.7 %; HGB - HEMOGLOBIN 9.4 g/dL (12.0-16.0); LYMPHOCYTES # (AUTO) 1.5 10^3/uL (1.5-3.5); LYMPHOCYTES % (AUTO) 17.2 %; MEAN CORPUSCULAR HEMOGLOBIN 32.2 pg (27.0-31.0); MEAN CORPUSCULAR HGB CONC 33.4 g/dL (32.0-36.0); MEAN CORPUSCULAR VOLUME 96.6 fL (81.0-99.0); MONOCYTES # (AUTO) 0.8 10^3/uL (0.0-1.0); MONOCYTES % (AUTO) 8.9 %; NEUTROPHILS # (AUTO) 6.3 10^3/uL (1.5-6.6); PLT - PLATELET COUNT 141 10^3/uL (130-450); RED BLOOD COUNT 2.93 10^6/uL (4.20-5.40); WHITE BLOOD COUNT 8.7 x10^3/uL (4.8-10.8)
[2017-08-16 06:06] LABS: ALBUMIN 3.6 g/dL (3.2-5.5); ALBUMIN/GLOBULIN RATIO 1.2 (1.0-2.2); BILIRUBIN,TOTAL 0.8 mg/dL (0.2-1.0); CALCIUM 9.2 mg/dL (8.5-10.3); TOTAL PROTEIN 6.7 g/dL (6.7-8.2)
[2017-08-16] MEDS: PANTOPRAZOLE 40 MG TABLET PO SCH (06:23)
[2017-08-16] MEDS: POLYETHYLENE GLYCOL 3350 17 GM PACKET PO SCH (07:11)
[2017-08-16] MEDS: cefTRIAXone 1 GM in SODIUM CHLORIDE 0.9% MINIBAG 100 ML IV SCH (08:38)
[2017-08-16] MEDS: HEPARIN 5,000 UNIT/ML VIAL SUBQ SCH (08:38)
[2017-08-16] MEDS: SERTRALINE 50 MG TABLET PO SCH (08:39)
[2017-08-16] MEDS ORDERED: SODIUM CHLORIDE 0.65% NASAL SPRAY NAS PRN (11:10)
[2017-08-16] MEDS ORDERED: CALAMINE/ZINC OXIDE 118 ML BOTTLE TOP PRN (11:45)
[2017-08-16] MEDS: OXYMETAZOLINE NASAL SPRAY NAS SCH ×2 (11:47→18:56)
[2017-08-16] MEDS: NYSTATIN POWDER 15 GM TOP SCH ×2 (11:47→18:56)
[2017-08-16 12:30] LABS: VANCOMYCIN,RANDOM 12.1 ug/mL
[2017-08-16] MEDS: VANCOMYCIN INJ 1 GM in SODIUM CHLORIDE 0.9% 250 ML IV SCH (13:00)
--- NOTE | 2017-08-16 16:07 | PROVIDER PROGRESS NOTE ---
Subjective - Prog Note Date Prog Note Date: 08/16/17 Prog Note Time: 08:00 - Subjective Pt reports feeling: Improved Subjective: [id number] interview and exam was spent with patient >30 minutes and a conversation with patient's sister while in patient room to update of plan and medical conditions. Patient denies SOB, chest pain, N/V or a new cough. Patient states she slept ok and has been enjoying her meals. Current Medications - Current Medications Current Medications: Active Medications Aspirin (Ecotrin) 81 mg PO QPM [facility] Last Admin: 08/15/17 21:09 Dose: 81 mg Calamine (Calamine) 118 applic TOP PRN PRN PRN Reason: ITCHING Gabapentin (Neurontin) 300 mg PO TID [facility] Last Admin: 08/16/17 13:01 Dose: 300 mg Heparin Sodium (Porcine) () 5,000 unit SUBQ BID [facility] Last Admin: 08/16/17 08:38 Dose: 5,000 unit Hydromorphone HCl (Dilaudid Inj Syringe) 0.5 mg IVP Q2H PRN PRN Reason: Pain 8 to 10 Last Admin: 08/16/17 13:00 Dose: 0.5 mg Ceftriaxone Sodium 1 gm/ (Sodium Chloride) 100 mls @ 200 mls/hr IV DAILY [facility] Last Infusion: 08/16/17 09:11 Dose: Infused Vancomycin HCl 1 gm/ Sodium (Chloride) 250 mls @ 167 mls/hr IV Q48H [facility] Nystatin (Nystop) 1 applic TOP BID [facility] Last Admin: 08/16/17 11:47 Dose: 1 applic Oxycodone/Acetaminophen (Percocet 5 Mg/325 Mg) 1 tab PO Q4H PRN PRN Reason: PAIN Last Admin: 08/16/17 10:09 Dose: 1 tab Oxymetazoline HCl (Afrin) 2 sprays NEGIN BID [facility] Stop: 08/19/17 12:00 Last Admin: 08/16/17 11:47 Dose: 2 sprays Pantoprazole Sodium (Protonix) 40 mg PO QDAC [facility] Last Admin: 08/16/17 06:23 Dose: 40 mg Polyethylene Glycol (Miralax) 17 gm PO DAILY [facility] Last Admin: 08/16/17 07:11 Dose: Not Given Sertraline HCl (Zoloft) 100 mg PO DAILY [facility] Last Admin: 08/16/17 08:39 Dose: 100 mg Sodium Chloride (Normal Saline Flush 0.9%) 10 ml IVP PRN PRN PRN Reason: NEEDED PER PROVIDER ORDERS Last Admin: 08/16/17 08:36 Dose: 10 ml Sodium Chloride (Normal Saline Flush 0.9%) 10 ml IVP Q8HR [facility] Last Admin: 08/16/17 13:00 Dose: 10 ml Sodium Chloride ([place]) 2 sprays NEGIN Q4HR PRN PRN Reason: Nasal Congestion Temazepam (Restoril) 15 mg PO QPM PRN PRN Reason: Insomnia Last Admin: 08/15/17 22:37 Dose: 15 mg Aspirin [Aspir-Low] 81 mg PO QPM 02/19/16 Sertraline [Zoloft] 100 mg PO DAILY 02/19/16 Furosemide 80 mg PO BID 10/11/16 Allopurinol 100 mg PO DAILY 10/22/16 Gabapentin 300 mg PO TID 10/22/16 Pantoprazole [Protonix] 40 mg PO QDAC 10/22/16 Temazepam 15 - 30 mg PO QPM PRN 10/23/16 Cholecalciferol (Vitamin D3) [Vitamin D3] 2,000 units PO DAILY 08/15/17 Fluticasone/Salmeterol [Advair 250-50 Diskus] 1 puffs INH BID 08/15/17 Garlic 1,000 mg PO DAILY 08/15/17 Magnesium Oxide [Mag Ox] 400 mg PO DAILY 08/15/17 Multivitamin [Theragran] 1 tab PO DAILY 08/15/17 [place]-3/Dha/Epa/Fish Oil [Fish Oil 1,000 mg Softgel] 300 mg PO DAILY 08/15/17 Oxycodone HCl/Acetaminophen [Oxycodone-Acetaminophen 5-325] 1 tab PO Q4H PRN 09/27 Turmeric Root Extract [Turmeric] 500 mg PO DAILY 08/15/17 Objective - Vital Signs/Intake & Output Reviewed Vital Signs: Yes Vital Signs: Vital Signs x48h Temp Pulse Resp BP Pulse Ox 08/16/17 11:14 36.6 C 71 20 124/63 97 Intake & Output: Intake & Output 08/13/17 08/14/17 08/15/17 08/16/17 23:59 23:59 23:59 23:59 Intake Total 1694 1550 Output Total 200 450 Balance 1494 1100 - Objective General Appearance: positive: No acute distress, Alert, Lethargic Eyes Bilateral: positive: Normal inspection, PERRL ENT: positive: ENT inspection nml, Pharynx nml, Dry mucous membranes Neck: positive: Nml inspection, Thyroid nml, No JVD, Trachea midline, Stiff neck Respiratory: positive: Chest non-tender, No respiratory distress Cardiovascular: positive: Regular rate & rhythm, No gallop, Systolic murmur, Decreased pulse(s) Peripheral Pulses: 2+ Radial (R), 2+ Radial (L) Abdomen: positive: Non-tender, No organomegaly, Nml bowel sounds, No distention Back: positive: Nml inspection Skin: positive: No rash, Warm, Dry Extremities: positive: Non-tender, Full ROM, Nml appearance, Pedal edema, Joint swelling Neurologic/Psychiatric: positive: Oriented x3, CN's nml (2-12), Motor nml, Sensation nml, Depressed mood/affect Reflexes: Bicep (R): 2+, Bicep (L): 2+ - Lab Results Fish Bones: 08/17/17 05:27 08/17/17 05:27 Other Labs: Lab Results x24hrs 08/16/17 08/16/17 08/16/17 Range/Units 12:18 05:45 05:45 WBC (4.8-10.8) x10^3/uL RBC (4.20-5.40) 10^6/uL Hgb (12.0-16.0) g/dL Hct (37.0-47.0) % MCV (81.0-99.0) fL MCH (27.0-31.0) pg MCHC (32.0-36.0) g/dL RDW (12.0-15.0) % Plt Count (130-450) 10^3/uL MPV (7.9-10.8) fL Neut # (1.5-6.6) 10^3/uL Lymph # (1.5-3.5) 10^3/uL [place] # (0.0-1.0) 10^3/uL Eos # (0.0-0.7) 10^3/uL Baso # (0.0-0.1) 10^3/uL Absolute Nucleated RBC x10^3/uL Nucleated RBC % /100WBC Sodium 134 L (135-145) mmol/L Potassium 4.2 (3.5-5.0) mmol/L Chloride 94 L (101-111) mmol/L Carbon Dioxide 27 (21-32) mmol/L Anion Gap 13.0 (6-13) BUN 48 H (6-20) mg/dL Creatinine 3.0 H (0.4-1.0) mg/dL Estimated GFR (MDRD) 16 L (>89) Glucose 100 (70-100) mg/dL Calcium 9.2 (8.5-10.3) mg/dL Total Bilirubin 0.8 (0.2-1.0) mg/dL AST 24 (10-42) IU/L ALT 19 (10-60) IU/L Alkaline Phosphatase 91 (42-121) IU/L Troponin I (<0.49) ng/mL B-Natriuretic Peptide 754 H (5-100) pg/mL Total Protein 6.7 (6.7-8.2) g/dL Albumin 3.6 (3.2-5.5) g/dL Globulin 3.1 (2.1-4.2) g/dL Albumin/Globulin Ratio 1.2 (1.0-2.2) Urine Color Urine Clarity (CLEAR) Urine pH (5.0-7.5) PH Ur Specific [place] (1.002-1.030) Urine Protein (NEGATIVE) mg/dL Urine Glucose (UA) (NEGATIVE) mg/dL Urine Ketones (NEGATIVE) mg/dL Urine Occult Blood (NEGATIVE) Urine Nitrite (NEGATIVE) Urine Bilirubin (NEGATIVE) Urine Urobilinogen (NORMAL) E.U./dL Ur Leukocyte Esterase (NEGATIVE) Urine RBC (0-5) /HPF Urine WBC (0-5) /HPF Ur Squamous Epith Cells (<= Few) Urine Bacteria (None Seen) /HPF Urine Culture Comments Last Dose Date 08/15/2017 Last Dose Time 1300 Random Vancomycin 12.1 ug/mL Urine Opiates Screen (NEGATIVE) Ur Oxycodone Screen (NEGATIVE) Urine Methadone Screen (NEGATIVE) Ur Propoxyphene Screen (NEGATIVE) Ur Barbiturates Screen (NEGATIVE) Ur Tricyclics Screen (NEGATIVE) Ur Phencyclidine Scrn (NEGATIVE) Ur Amphetamine Screen (NEGATIVE) U Methamphetamines Scrn (NEGATIVE) U Benzodiazepines Scrn (NEGATIVE) Urine Cocaine Screen (NEGATIVE) U Cannabinoids Screen (NEGATIVE) 08/16/17 08/16/17 08/15/17 Range/Units 05:45 05:45 17:47 WBC 8.7 (4.8-10.8) x10^3/uL RBC 2.93 L (4.20-5.40) 10^6/uL Hgb 9.4 L (12.0-16.0) g/dL Hct 28.3 L (37.0-47.0) % MCV 96.6 (81.0-99.0) fL MCH 32.2 H (27.0-31.0) pg MCHC 33.4 (32.0-36.0) g/dL RDW 15.0 (12.0-15.0) % Plt Count 141 (130-450) 10^3/uL MPV 8.0 (7.9-10.8) fL Neut # 6.3 (1.5-6.6) 10^3/uL Lymph # 1.5 (1.5-3.5) 10^3/uL [place] # 0.8 (0.0-1.0) 10^3/uL Eos # 0.1 (0.0-0.7) 10^3/uL Baso # 0.0 (0.0-0.1) 10^3/uL Absolute Nucleated RBC 0.00 x10^3/uL Nucleated RBC % 0.0 /100WBC Sodium (135-145) mmol/L Potassium (3.5-5.0) mmol/L Chloride (101-111) mmol/L Carbon Dioxide (21-32) mmol/L Anion Gap (6-13) BUN (6-20) mg/dL Creatinine (0.4-1.0) mg/dL Estimated GFR (MDRD) (>89) Glucose (70-100) mg/dL Calcium (8.5-10.3) mg/dL Total Bilirubin (0.2-1.0) mg/dL AST (10-42) IU/L ALT (10-60) IU/L Alkaline Phosphatase (42-121) IU/L Troponin I 0.21 (<0.49) ng/mL B-Natriuretic Peptide (5-100) pg/mL Total Protein (6.7-8.2) g/dL Albumin (3.2-5.5) g/dL Globulin (2.1-4.2) g/dL Albumin/Globulin Ratio (1.0-2.2) Urine Color YELLOW Urine Clarity HAZY (CLEAR) Urine pH 6.0 (5.0-7.5) PH Ur Specific [place] 1.020 (1.002-1.030) Urine Protein NEGATIVE (NEGATIVE) mg/dL Urine Glucose (UA) NEGATIVE (NEGATIVE) mg/dL Urine Ketones NEGATIVE (NEGATIVE) mg/dL Urine Occult Blood NEGATIVE (NEGATIVE) Urine Nitrite NEGATIVE (NEGATIVE) Urine Bilirubin NEGATIVE (NEGATIVE) Urine Urobilinogen 0.2 (NORMAL) (NORMAL) E.U./dL Ur Leukocyte Esterase SMALL H (NEGATIVE) Urine RBC None Seen (0-5) /HPF Urine WBC >25 H (0-5) /HPF Ur Squamous Epith Cells MANY Squamous H (<= Few) Urine Bacteria Few (None Seen) /HPF Urine Culture Comments NOT INDICATED Last Dose Date Last Dose Time Random Vancomycin ug/mL Urine Opiates Screen NEGATIVE (NEGATIVE) Ur Oxycodone Screen POSITIVE H (NEGATIVE) Urine Methadone Screen NEGATIVE (NEGATIVE) Ur Propoxyphene Screen NEGATIVE (NEGATIVE) Ur Barbiturates Screen NEGATIVE (NEGATIVE) Ur Tricyclics Screen NEGATIVE (NEGATIVE) Ur Phencyclidine Scrn NEGATIVE (NEGATIVE) Ur Amphetamine Screen NEGATIVE (NEGATIVE) U Methamphetamines Scrn NEGATIVE (NEGATIVE) U Benzodiazepines Scrn POSITIVE H (NEGATIVE) Urine Cocaine Screen NEGATIVE (NEGATIVE) U Cannabinoids Screen NEGATIVE (NEGATIVE) - Diagnostic Imaging Diagnostic Imaging Results: positive: Final report reviewed Assessment/Plan - Problem List (1) Acute non-ST elevation myocardial infarction (NSTEMI) Impression: Patient had an unfortunate troponin elevation on admission, just slightly above normal at 0.07, that became a "rule in [place]" with a troponin of 0.36. The patient has been free of chest pain, no EKG changes and remains hemodynamically stable. The last value was 0.18 and is trending down. Plan: Transfer to [place] to obtain cardiac cath, depending on accepting Hospitalist team and bed availability. (2) Pneumonia Impression: A chest x-ray was completed in the ED which showed right greater than left infiltrates. Patient also presented with a fever, chills, and fatigue. She admits to feeling normal yesterday during dialysis. Plan: Start antibiotics and await culture results. Qualifiers: Pneumonia type: due to unspecified organism Laterality: right Lung location: middle lobe of lung Qualified Code(s): J18.1 - Lobar pneumonia, unspecified organism (3) Fever Impression: Patient had a temp max of 39.1 C, for which she was given tylenol. She has been afebrile since that time. Plan: Continue to monitor mental status and check vital signs. (4) End stage renal disease Impression: Patient currently has ESRD suspected drug induced as she had a "bowel perforation" and was treated at a larger hospital [place] ~5 years ago. Her kidney function has steadily declined since that time. Plan: Treat pneumonia and plan to discharge Thursday morning to ensure dialysis schedule. (5) Anemia Qualifiers: Anemia type: due to chronic kidney disease Chronic kidney disease stage: on chronic dialysis Qualified Code(s): N18.6 - End stage renal disease; D63.1 - Anemia in chronic kidney disease; D63.1 - Anemia in chronic kidney disease; Z99.2 - Dependence on renal dialysis; Z99.2 - Dependence on renal dialysis; Z99.2 - Dependence on renal dialysis; Z99.2 - Dependence on renal dialysis
[2017-08-16] MEDS: FUROSEMIDE 40 MG TABLET PO SCH (17:45)
[2017-08-16] MEDS: ASPIRIN EC 81 MG TABLET PO SCH (21:44)
[2017-08-16] MEDS: TEMAZEPAM 15 MG CAPSULE PO PRN (22:50)
[2017-08-17] MEDS: oxyCOD/ACETAMIN 5 MG/325 MG TABLET PO PRN ×2 (04:27→09:13)
[2017-08-17 05:44] LABS: BASOPHILS % (AUTO) 0.4 %; EOSINOPHILS # (AUTO) 0.1 10^3/uL (0.0-0.7); EOSINOPHILS % (AUTO) 2.7 %; HGB - HEMOGLOBIN 8.4 g/dL (12.0-16.0); LYMPHOCYTES # (AUTO) 0.8 10^3/uL (1.5-3.5); LYMPHOCYTES % (AUTO) 17.2 %; MEAN CORPUSCULAR HEMOGLOBIN 32.2 pg (27.0-31.0); MEAN CORPUSCULAR HGB CONC 33.7 g/dL (32.0-36.0); MEAN CORPUSCULAR VOLUME 95.3 fL (81.0-99.0); MEAN PLATELET VOLUME 8.2 fL (7.9-10.8); MONOCYTES # (AUTO) 0.6 10^3/uL (0.0-1.0); MONOCYTES % (AUTO) 12.6 %; NEUTROPHILS # (AUTO) 3.2 10^3/uL (1.5-6.6); NEUTROPHILS % (AUTO) 67.1 %; PLT - PLATELET COUNT 124 10^3/uL (130-450); RED BLOOD COUNT 2.62 10^6/uL (4.20-5.40); WHITE BLOOD COUNT 4.8 x10^3/uL (4.8-10.8)
[2017-08-17 05:52] LABS: ALBUMIN 3.2 g/dL (3.2-5.5); ALBUMIN/GLOBULIN RATIO 1.1 (1.0-2.2); BILIRUBIN,TOTAL 0.6 mg/dL (0.2-1.0); CALCIUM 8.7 mg/dL (8.5-10.3); CREATININE 3.5 mg/dL (0.4-1.0); TOTAL PROTEIN 6.2 g/dL (6.7-8.2)
[2017-08-17] MEDS: GABAPENTIN 300 MG CAPSULE PO SCH (06:06)
[2017-08-17] MEDS: SODIUM CHLORIDE FLUSH 0.9% 10 ML SYRINGE IVP SCH (06:07)
[2017-08-17] MEDS: PANTOPRAZOLE 40 MG TABLET PO SCH (06:07)
[2017-08-17] MEDS: FUROSEMIDE 40 MG TABLET PO SCH (06:07)
[2017-08-17 07:54] VITALS: BP 134/58
--- NOTE | 2017-08-17 08:40 | Discharge Plan ---
Discharge Plan Disposition: 02 Transfer Acute Care Hosp Condition: Good Diet: Low Sodium Activity Restrictions: No Restrictions Shower Restrictions: No Driving Restrictions: Yes Weight Bearing: Full Weight Additional Instructions or Follow Up instructions: Care to continue at acute care center to ensure MWF dialysis schedule and cardiac cath for NSTEMI after pneumonia is treated. No Smoking: If you smoke, Please STOP! Call for help. Follow-up with: Shanon Cordova PA-C [Primary Care Provider] -
--- NOTE | 2017-08-17 08:43 | DISCHARGE SUMMARY ---
Discharge Summary Admit Date: 08/15/17 Discharge Date: 08/17/17 Discharging Provider: DUKE Valentine Primary Care Provider: Shanon Cordova Code Status: Attempt Resuscitation Condition at Discharge: Good Discharge Disposition: 02 Transfer Acute Care Hosp Discharge Facility Name: [facility] - DIAGNOSES Admission Diagnoses: Pneumonia, unspecified organism (J18.9) Fever, unspecified (R50.9) End stage renal disease (N18.6) Anemia in chronic kidney disease (N18.9) Discharge Diagnoses with Status of Each Condition: Acute non-ST elevation myocardial infarction (NSTEMI) (I21.4) ongoing, planning for a cardiac cath after treatment for pneumonia is complete. Pneumonia (J18.9) ongoing, improving. Fever (R50.9) resolved. End stage renal failure on dialysis (N18.6) chronic, ongoing dialysis through Dr. Schneider- [facility] schedule. Anemia in chronic kidney disease (N18.9) chronic, stable. - HPI History of Present Illness: Skyla Avila is an ill-appearing 66-year old female with a past medical history of chronic back pain, back injury, a history of 2 back surgeries, CHF, HTN, CAD, atrial fibrillation, COPD, SOB, sleep apnea-no CPAP use, headaches, GERD, Crohn's disease, renal insufficiency, macular degeneration, depression, anxiety coronary stents, and ESRD requiring hemodialysis [facility]. Patient felt normal yesterday and attended her usual hemodialysis session. Early this AM around 5AM she awoke with chills, rigors, and mild SOB. She took 2 tylenol, but these symptoms persisted, so 911 was called by her sister, Charu who she lives with and she was brought to the ED. Once in the ED she was found to have bilateral infiltrates right greater than left. She will be admitted for further treatment of pneumonia and symptom management. - HOSPITAL COURSE Hospital Course: The following problems/diagnoses were prevalent for this hospital stay: (1) Acute non-ST elevation myocardial infarction (NSTEMI)- Patient had an unfortunate troponin elevation on admission, just slightly above normal at 0.07 , that became a "rule in [place]" with a troponin of 0.36. The patient has been free of chest pain, no EKG changes and remains hemodynamically stable. The last value was 0.18 and is trending down. Plans to transfer to [place] to obtain cardiac cath, depending on accepting Hospitalist team and bed availability. (2) Pneumonia- A chest x-ray was completed in the ED which showed right greater than left infiltrates. Patient also presented with a fever, chills, and fatigue. She admits to feeling normal yesterday during dialysis. Continue antibiotics and await culture results, which remain no growth to date. (3) Fever- Patient had a temp max of 39.1 C, for which she was given tylenol. She has been afebrile since that time. Patient's mental status has been unchanged since admission, which is her baseline of A & O x4 and understands her medical condition. Her vital signs were monitored and she remained hemodynamically stable throughout her stay. (4) End stage renal disease- Patient currently has ESRD suspected drug induced as she had a "bowel perforation" and was treated at a larger hospital [place] ~5 years ago. Her kidney function has steadily declined since that time. Plan: Treat pneumonia and plan to discharge Thursday morning to ensure dialysis schedule. (5) Anemia of chronic disease- Upon admission, patient H/H was 10.5/31.7 which is actually her high normal. After chart review, her usual range is 8.8-9. Patients labs were monitored and on the day of discharge H/H was 8.4/25.0. Disposition: A call to Dr. Schneider's office was made, and I spoke to Dr. Bolden who is the Service Coordinator econometrician and recommends a transfer to [place] to ensure timely MWF dialysis treatments, continue with pneumonia treatment and perform a cardiac cath later in the week. - ALLERGIES Allergies/Adverse Reactions: Allergies Allergy/AdvReac Type Severity Reaction Status Date / Time Penicillins Allergy Hives Verified 10/09/16 12:07 povidone-iodine Allergy Rash Verified 10/09/16 12:07 [From Betadine] soap * [From Betadine] Allergy Rash Verified 10/09/16 12:07 Sulfa (Sulfonamide Allergy Rash Verified 10/09/16 12:07 Antibiotics) mushrooms Allergy Severe Anaphylaxis Uncoded 10/11/16 10:38 IV Contrast Allergy Rash Uncoded 10/09/16 12:07 - MEDICATIONS Home Medications: Ambulatory Orders Medication Instructions Recorded Confirmed Aspirin [Aspir-Low] 81 mg PO QPM 02/19/16 08/15/17 Sertraline [Zoloft] 100 mg PO DAILY 02/19/16 08/15/17 Furosemide 80 mg PO BID 10/11/16 08/15/17 Allopurinol 100 mg PO DAILY 10/22/16 08/15/17 Gabapentin 300 mg PO TID 10/22/16 08/15/17 Pantoprazole [Protonix] 40 mg PO QDAC 10/22/16 08/15/17 Temazepam 15 - 30 mg PO QPM PRN 10/23/16 08/15/17 Cholecalciferol (Vitamin D3) 2,000 units PO DAILY 08/15/17 08/15/17 [Vitamin D3] Fluticasone/Salmeterol [Advair 1 puffs INH BID 08/15/17 08/15/17 250-50 Diskus] Garlic 1,000 mg PO DAILY 08/15/17 08/15/17 Magnesium Oxide [Mag Ox] 400 mg PO DAILY 08/15/17 08/15/17 Multivitamin [Theragran] 1 tab PO DAILY 08/15/17 08/15/17 [place]-3/Dha/Epa/Fish Oil [Fish Oil 300 mg PO DAILY 08/15/17 08/15/17 1,000 mg Softgel] Oxycodone HCl/Acetaminophen 1 tab PO Q4H PRN 08/15/17 08/15/17 [Oxycodone-Acetaminophen 5-325] Turmeric Root Extract [Turmeric] 500 mg PO DAILY 08/15/17 08/15/17 Nystatin [Nystop] 1 applic TOP BID bottle 08/17/17 Temazepam [Restoril] 15 mg PO QPM PRN capsule 08/17/17 cefTRIAXone [Rocephin 1 gram] 1 gm IV DAILY vial 08/17/17 - PHYSICAL EXAM AT DISCHARGE General Appearance: positive: No acute distress, Alert Eyes Bilateral: positive: Normal inspection, PERRL ENT: positive: ENT inspection nml, Pharynx nml, Dry mucous membranes Neck: positive: Nml inspection, Thyroid nml, No JVD, Stiff neck Respiratory: positive: Chest non-tender, No respiratory distress, Rhonchi Cardiovascular: positive: No gallop, Irregularly irregular, Systolic murmur, Decreased pulse(s) Peripheral Pulses: positive: 1+ Abdomen: positive: Non-tender, No organomegaly, Hepatomegaly Back: positive: Nml inspection Skin: positive: No rash, Warm, Dry Extremities: positive: Non-tender, Full ROM, Nml appearance, Pedal edema Neurologic/Psychiatric: positive: Oriented x3, CN's nml (2-12), Motor nml, Sensation nml, Depressed mood/affect Reflexes: Bicep (R): 3+, Bicep (L): 3+ - LABS Result Diagrams: 08/17/17 05:27 08/17/17 05:27 Other Lab Results: Laboratory Last Values WBC 4.8 x10^3/uL (4.8-10.8) 08/17/17 05: RBC 2.62 10^6/uL (4.20-5.40) L 08/17/17 05: Hgb 8.4 g/dL (12.0-16.0) L 08/17/17 05:27 Hct 25.0 % (37.0-47.0) L 08/17/17 05:27 MCV 95.3 fL (81.0-99.0) 08/17/17 05:27 MCH 32.2 pg (27.0-31.0) H 08/17/17 05:27 MCHC 33.7 g/dL (32.0-36.0) 08/17/17 05: RDW 15.0 % (12.0-15.0) 08/17/17 05:27 Plt Count 124 10^3/uL (130-450) L 08/17/17 05:27 MPV 8.2 fL (7.9-10.8) 08/17/17 05:27 Neut # 3.2 10^3/uL (1.5-6.6) 08/17/17 05:27 Lymph # 0.8 10^3/uL (1.5-3.5) L 08/17/17 05:27 [place] # 0.6 10^3/uL (0.0-1.0) 08/17/17 05:27 Eos # 0.1 10^3/uL (0.0-0.7) 08/17/17 05:27 Baso # 0.0 10^3/uL (0.0-0.1) 08/17/17 05:27 Absolute Nucleated RBC 0.00 x10^3/uL 08/17/17 05:27 Nucleated RBC % 0.0 /100WBC 08/17/17 05:27 PT 11.2 secs (9.9-12.6) 08/15/17 13:10 INR 1.0 (0.8-1.2) 08/15/17 13:10 Sodium 133 mmol/L (135-145) L 08/17/17 05:27 Potassium 4.0 mmol/L (3.5-5.0) 08/17/17 05:27 Chloride 92 mmol/L (101-111) L 08/17/17 05:27 Carbon Dioxide 27 mmol/L (21-32) 08/17/17 05:27 Anion Gap 14.0 (6-13) H 08/17/17 05:27 BUN 58 mg/dL (6-20) H 08/17/17 05:27 Creatinine 3.5 mg/dL (0.4-1.0) H 08/17/17 05:27 Estimated GFR (MDRD) 13 (>89) L 08/17/17 05:27 Glucose 103 mg/dL (70-100) H 08/17/17 05:27 Lactic Acid 1.9 mmol/L (0.5-2.2) 08/15/17 13:10 Calcium 8.7 mg/dL (8.5-10.3) 08/17/17 05:27 Iron 15 ug/dL (28-170) L 08/15/17 13:10 TIBC 237 ug/dL (250-450) L 08/15/17 13:10 % Saturation 6 % (20-50) L 08/15/17 13:10 Transferrin 169 mg/dL (192-382) L 08/15/17 13:10 Total Bilirubin 0.6 mg/dL (0.2-1.0) 08/17/17 05:27 AST 16 IU/L (10-42) 08/17/17 05:27 ALT 15 IU/L (10-60) 08/17/17 05:27 Alkaline Phosphatase 80 IU/L (42-121) 08/17/17 05:27 Total Creatine Kinase 76 IU/L (22-269) 08/15/17 13:10 Troponin I 0.18 ng/mL (<0.49) 08/17/17 05:27 C-Reactive Protein 4.6 mg/dL (0-1.0) H 08/15/17 13:10 B-Natriuretic Peptide 463 pg/mL (5-100) H 08/17/17 05:27 Total Protein 6.2 g/dL (6.7-8.2) L 08/17/17 05:27 Albumin 3.2 g/dL (3.2-5.5) 08/17/17 05:27 Globulin 3.0 g/dL (2.1-4.2) 08/17/17 05:27 Albumin/Globulin Ratio 1.1 (1.0-2.2) 08/17/17 05:27 Lipase 38 U/L (22-51) 08/15/17 06:55 TSH 0.61 uIU/mL (0.34-5.60) 08/15/17 13:10 Urine Color YELLOW 08/15/17 17:47 Urine Clarity HAZY (CLEAR) 08/15/17 17:47 Urine pH 6.0 PH (5.0-7.5) 08/15/17 17:47 Ur Specific [place] 1.020 (1.002-1.030) 08/15/17 17:47 Urine Protein NEGATIVE mg/dL (NEGATIVE) 08/15/17 17:47 Urine Glucose (UA) NEGATIVE mg/dL (NEGATIVE) 08/15/17 17:47 Urine Ketones NEGATIVE mg/dL (NEGATIVE) 08/15/17 17:47 Urine Occult Blood NEGATIVE (NEGATIVE) 08/15/17 17:47 Urine Nitrite NEGATIVE (NEGATIVE) 08/15/17 17:47 Urine Bilirubin NEGATIVE (NEGATIVE) 08/15/17 17:47 Urine Urobilinogen 0.2 (NORMAL) E.U./dL (NORMAL) 08/15/17 17:47 Ur Leukocyte Esterase SMALL (NEGATIVE) H 08/15/17 17:47 Urine RBC None Seen /HPF (0-5) 08/15/17 17:47 Urine WBC >25 /HPF (0-5) H 08/15/17 17:47 Ur Squamous Epith Cells MANY Squamous (<= Few) H 08/15/17 17:47 Urine Bacteria Few /HPF (None Seen) 08/15/17 17:47 Ur Microscopic Review INDICATED 08/15/17 07:51 Urine Culture Comments NOT INDICATED 08/15/17 17:47 Last Dose Date 08/15/2017 08/16/17 12:18 Last Dose Time 1300 08/16/17 12:18 Random Vancomycin 12.1 ug/mL 08/16/17 12:18 Urine Opiates Screen NEGATIVE (NEGATIVE) 08/15/17 17:47 Ur Oxycodone Screen POSITIVE (NEGATIVE) H 08/15/17 17:47 Urine Methadone Screen NEGATIVE (NEGATIVE) 08/15/17 17:47 Ur Propoxyphene Screen NEGATIVE (NEGATIVE) 08/15/17 17:47 Ur Barbiturates Screen NEGATIVE (NEGATIVE) 08/15/17 17:47 Ur Tricyclics Screen NEGATIVE (NEGATIVE) 08/15/17 17:47 Ur Phencyclidine Scrn NEGATIVE (NEGATIVE) 08/15/17 17:47 Ur Amphetamine Screen NEGATIVE (NEGATIVE) 08/15/17 17:47 U Methamphetamines Scrn NEGATIVE (NEGATIVE) 08/15/17 17:47 U Benzodiazepines Scrn POSITIVE (NEGATIVE) H 08/15/17 17:47 Urine Cocaine Screen NEGATIVE (NEGATIVE) 08/15/17 17:47 U Cannabinoids Screen NEGATIVE (NEGATIVE) 08/15/17 17:47 Influenza A (Rapid) Negative (Negative) 08/15/17 07:13 Influenza B (Rapid) Negative (Negative) 08/15/17 07:13 Influenza Types A,B Ag - 08/15/17 07:13 - DIAGNOSTIC IMAGING Diagnostic Imaging Results: Final report reviewed Diagnostic Imaging Results Comments: Chest x-ray: FINDINGS: Lungs/Pleura: Small lung volumes. Bilateral infiltrates or edema, right greater than left. No definite pleural effusion seen. No pneumothorax. Mediastinum: Mild cardiomegaly. Aortic atherosclerosis. Other: None. IMPRESSION: 1. Small lung volumes with cardiomegaly and asymmetric infiltrates or edema, right greater than left. - FOLLOW UP Follow Up: Care to continue at acute care facility to ensure MWF dialysis treatments. Dr. Bolden, nephrology made aware of hospitalization, NSTEMI diagnosis and pneumonia treatment. - TIME SPENT Time Spent in Discharge (Minutes): 45
[2017-08-17] MEDS ORDERED: HEPARIN 5,000 UNIT/ML VIAL SUBQ SCH (09:00)
[2017-08-17] MEDS: SERTRALINE 50 MG TABLET PO SCH (09:12)
[2017-08-17] MEDS: cefTRIAXone 1 GM in SODIUM CHLORIDE 0.9% MINIBAG 100 ML IV SCH (09:12)
[2017-08-17] MEDS: POLYETHYLENE GLYCOL 3350 17 GM PACKET PO SCH (09:13)
[2017-08-17] MEDS: OXYMETAZOLINE NASAL SPRAY NAS SCH (09:14)
[2017-08-17] MEDS: SODIUM CHLORIDE FLUSH 0.9% 10 ML SYRINGE IVP PRN (09:15)
[2017-08-18] MEDS ORDERED: VANCOMYCIN INJ 1 GM in SODIUM CHLORIDE 0.9% 250 ML IV SCH (13:00)
== END 2017-08-17 12:10 | disposition short-term general hospital (02) | DRG 193 ==
LOC: EDUNIT# → ED 06:27 → MS2 08:15 → EDUNIT# 08:15
PROVIDERS: ADMIT Nurse Practitioner; ATTEND Nurse Practitioner
DX: J18.1 Lobar pneumonia, unspecified organism (principal); N18.6 End stage renal disease; I21.4 Non-ST elevation (NSTEMI) myocardial infarction; I13.2 Hypertensive heart and chronic kidney disease with heart failure and with stage 5 chronic kidney disease, or end stage renal disease; J44.0 Chronic obstructive pulmonary disease with (acute) lower respiratory infection; K50.90 Crohn's disease, unspecified, without complications; I50.9 Heart failure, unspecified; D63.1 Anemia in chronic kidney disease; I25.10 Atherosclerotic heart disease of native coronary artery without angina pectoris; I48.91 Unspecified atrial fibrillation; Z79.82 Long term (current) use of aspirin; G47.30 Sleep apnea, unspecified; K21.9 Gastro-esophageal reflux disease without esophagitis; F32.9 Major depressive disorder, single episode, unspecified; F41.9 Anxiety disorder, unspecified; M54.9 Dorsalgia, unspecified; G89.29 Other chronic pain; Z95.5 Presence of coronary angioplasty implant and graft; Z99.2 Dependence on renal dialysis; Z98.2 Presence of cerebrospinal fluid drainage device; Z87.11 Personal history of peptic ulcer disease; Z87.891 Personal history of nicotine dependence; Z79.891 Long term (current) use of opiate analgesic; Z86.79 Personal history of other diseases of the circulatory system
CPT/HCPCS: 36415; 71045; 80048; 80053; 80202; 80306; 81001; 81003; 82550; 82803; 83540; 83605; 83690; 83880; 84443; 84466; 84484; 85025; 85610; 86140; 87040; 87086; 87275; 87276; 93005; 93306; 96361; 96365; 96367; 99284; 99285

== ENCOUNTER 2017-08-17 12:00 | Outpatient (CLI) | payer MEDICARE, MEDICAID | END 2017-08-17 12:01 | disposition short-term general hospital (02) | LOC: EMS 12:00 | PROVIDERS: ATTEND Surgery | DX: I21.4 Non-ST elevation (NSTEMI) myocardial infarction (principal); J18.9 Pneumonia, unspecified organism | CPT/HCPCS: A0425; A0426 ==

== ENCOUNTER 2017-09-20 13:15 | Outpatient (CLI) | payer MEDICARE, MEDICAID | END 2017-09-20 13:16 | disposition short-term general hospital (02) | LOC: EMS 13:15 | PROVIDERS: ATTEND Surgery | DX: R41.82 Altered mental status, unspecified (principal); R53.1 Weakness; R25.1 Tremor, unspecified; Z99.2 Dependence on renal dialysis | CPT/HCPCS: A0425; A0427 ==

== ENCOUNTER 2018-02-15 12:28 | Outpatient (CLI) | payer MEDICARE, MEDICAID | END 2018-02-15 12:29 | disposition critical access hospital (66) | LOC: EMS 12:28 | PROVIDERS: ATTEND Surgery | DX: R60.0 Localized edema (principal); R06.02 Shortness of breath; L29.9 Pruritus, unspecified | CPT/HCPCS: A0425; A0427 ==

== ENCOUNTER 2018-02-15 12:52 | Emergency (ER) | payer MEDICARE, MEDICAID ==
--- NOTE | 2018-02-15 13:01 | ED Physician Documentation ---
PD HPI DYSPNEA - Stated complaint Stated Complaint: SOA - Chief complaint Chief Complaint: Allergic Rx - History obtained from History obtained from: Patient, EMS - History of Present Illness Timing - onset: Today Timing - onset during: Rest (getting dialysis) Timing - details: Abrupt onset (while eating crab sandwich during the end of her dialysis run (3-4 hours into it). Onset of dyspnea, itching, and feeling of tightness in her throat. EMS called and was given epi and benadryl with improvement. She feels okay though sleepy on arrival to ED.) Inciting event(s): Allergic rxn/anaphylaxis (had not been allergic to crab in the past.) Improved by: Epi pen Associated symptoms: No: Fever, Cough, Wheezing, Chest pain / discomfort Similar symptoms before: Has not had sx before Recently seen: Clinic Review of Systems Constitutional: denies: Fever Nose: denies: Rhinorrhea / runny nose, Congestion Throat: denies: Sore throat Respiratory: denies: Cough GI: denies: Vomiting, Diarrhea Skin: denies: Rash, Lesions PD PAST MEDICAL HISTORY - Past Medical History Cardiovascular: Atrial fibrillation, Coronary artery disease, Congestive heart failure, Hypertension Respiratory: CPAP use, Shortness of breath, Sleep apnea, COPD Endocrine/Autoimmune: Other (ESRD) GI: GERD, Crohn's disease, Ulcers : Frequency, Renal insuffiency HEENT: Macular degeneration Psych: Depression, Anxiety Musculoskeletal: Chronic back pain, Fatigue Derm: None - Past Surgical History Past Surgical History: Yes General: Cholecystectomy, Appendectomy Ortho: Knee replacement, Hip replacement /HOUSEFELLOW: Hysterectomy Cardiovascular: Coronary stent, Cardiac catheterization HEENT: Cataracts, Tonsil/Adenoidectomy - Present Medications Home Medications: Ambulatory Orders Medication Instructions Recorded Confirmed Aspirin [Aspir-Low] 81 mg PO QPM 02/19/16 08/15/17 Sertraline [Zoloft] 100 mg PO DAILY 02/19/16 08/15/17 Furosemide 80 mg PO BID 10/11/16 08/15/17 Allopurinol 100 mg PO DAILY 10/22/16 08/15/17 Gabapentin 300 mg PO TID 10/22/16 08/15/17 Pantoprazole [Protonix] 40 mg PO QDAC 10/22/16 08/15/17 Temazepam 15 - 30 mg PO QPM PRN 10/23/16 08/15/17 Cholecalciferol (Vitamin D3) 2,000 units PO DAILY 08/15/17 08/15/17 [Vitamin D3] Fluticasone/Salmeterol [Advair 1 puffs INH BID 08/15/17 08/15/17 250-50 Diskus] Garlic 1,000 mg PO DAILY 08/15/17 08/15/17 Magnesium Oxide [Mag Ox] 400 mg PO DAILY 08/15/17 08/15/17 Multivitamin [Theragran] 1 tab PO DAILY 08/15/17 08/15/17 [place]-3/Dha/Epa/Fish Oil [Fish Oil 300 mg PO DAILY 08/15/17 08/15/17 1,000 mg Softgel] Oxycodone HCl/Acetaminophen 1 tab PO Q4H PRN 08/15/17 08/15/17 [Oxycodone-Acetaminophen 5-325] Turmeric Root Extract [Turmeric] 500 mg PO DAILY 08/15/17 08/15/17 Nystatin [Nystop] 1 applic TOP BID bottle 08/17/17 Temazepam [Restoril] 15 mg PO QPM PRN capsule 08/17/17 cefTRIAXone [Rocephin 1 gram] 1 gm IV DAILY vial 08/17/17 - Allergies Allergies/Adverse Reactions: Allergies Allergy/AdvReac Type Severity Reaction Status Date / Time Penicillins Allergy Hives Verified 10/09/16 12:07 povidone-iodine Allergy Rash Verified 10/09/16 12:07 [From Betadine] soap * [From Betadine] Allergy Rash Verified 10/09/16 12:07 Sulfa (Sulfonamide Allergy Rash Verified 10/09/16 12:07 Antibiotics) mushrooms Allergy Severe Anaphylaxis Uncoded 10/11/16 10:38 IV Contrast Allergy Rash Uncoded 10/09/16 12:07 - Social History Does the pt smoke?: No Smoking Status: Former smoker Does the pt drink ETOH?: No Does the pt have substance abuse?: No - Immunizations Immunizations are current?: Yes - POLST Patient has POLST: No POLST Status: Full Code PD ED PE NORMAL - Vitals Vital signs reviewed: Yes - General General: Alert and oriented X 3, No acute distress, Well developed/nourished - HEENT HEENT: Ears normal, Pharynx benign (no swelling noted) - Neck Neck: Supple, no meningeal sign, No adenopathy - Cardiac Cardiac: RRR, No murmur - Respiratory Respiratory: Clear bilaterally - Abdomen Abdomen: Soft, Non tender - Derm Derm: Normal color, Warm and dry - Extremities Extremities: No calf tenderness / cord - Neuro Neuro: Alert and oriented X 3, No motor deficit, Normal speech Results - Vitals Vitals: Vital Signs - 24 hr 02/15/18 02/15/18 12:55 15:10 Temperature 37.0 C 36.7 C Heart Rate 76 62 Respiratory 20 16 Rate Blood Pressure 126/66 133/57 H O2 Saturation 97 99 Oxygen O2 Source Nasal cannula PD MEDICAL DECISION MAKING - ED course Complexity details: considered differential (had feeling of swelling in throat and is improved after epi/benadryl. Arrives to ED improved and remains that way for couple hours here. She had mostly completed her run of dialysis (3 1/2 out of 4 hours) so should be good until next session. ), d/w patient - Sepsis Event Vital Signs: Vital Signs - 24 hr 02/15/18 02/15/18 12:55 15:10 Temperature 37.0 C 36.7 C Heart Rate 76 62 Respiratory 20 16 Rate Blood Pressure 126/66 133/57 H O2 Saturation 97 99 Oxygen O2 Source Nasal cannula Departure - Departure Disposition: 01 Home, Self Care Clinical Impression: Allergic reaction to food Qualifiers: Encounter type: initial encounter Qualified Code(s): T78.1XXA - Other adverse food reactions, not elsewhere classified, initial encounter CKD (chronic kidney disease) Qualifiers: Chronic kidney disease stage: unspecified stage Qualified Code(s): N18.9 - Chronic kidney disease, unspecified Condition: Stable Record reviewed to determine appropriate education?: Yes Instructions: ED Allergic Reaction General Other Follow-Up: Shanon Cordova PA-C [Primary Care Provider] - Comments: Continue usual medications. The allergic reaction seems to be improved and staying that way. I do not see a need for ongoing medications per se. Avoid crabmeat in the future presuming that was the trigger for this given the timing of it. Discharge Date/Time: 02/15/18 15:21
[2018-02-15 15:11] VITALS: BP 133/57
== END 2018-02-15 15:21 | disposition home or self-care (01) ==
LOC: EDUNIT# → ED 12:52
DX: T78.1XXA Other adverse food reactions, not elsewhere classified, initial encounter (principal); I13.0 Hypertensive heart and chronic kidney disease with heart failure and stage 1 through stage 4 chronic kidney disease, or unspecified chronic kidney disease; N18.9 Chronic kidney disease, unspecified
CPT/HCPCS: 99283

== ENCOUNTER 2018-02-19 04:21 | Outpatient (CLI) | payer MEDICARE, MEDICAID | END 2018-02-19 04:22 | disposition short-term general hospital (02) | LOC: EMS 04:21 | PROVIDERS: ATTEND Surgery | DX: R06.00 Dyspnea, unspecified (principal) | CPT/HCPCS: A0425; A0427 ==

== ENCOUNTER 2018-03-06 07:15 | Outpatient (CLI) | payer MEDICARE, MEDICAID | END 2018-03-06 07:16 | disposition short-term general hospital (02) | LOC: EMS 07:15 | PROVIDERS: ATTEND Surgery | DX: R07.9 Chest pain, unspecified (principal) | CPT/HCPCS: A0425; A0427 ==

== ENCOUNTER 2018-09-26 15:00 | Outpatient (CLI) | payer MEDICARE | END 2018-09-26 15:01 | disposition critical access hospital (66) | LOC: EMS 15:00 | PROVIDERS: ATTEND Surgery | DX: R42 Dizziness and giddiness (principal); R53.1 Weakness; R05 Cough; M25.569 Pain in unspecified knee; M23.50 Chronic instability of knee, unspecified knee; W19.XXXA Unspecified fall, initial encounter; Z91.81 History of falling; Y92.009 Unspecified place in unspecified non-institutional (private) residence as the place of occurrence of the external cause | CPT/HCPCS: A0425; A0429 ==

== ENCOUNTER 2018-09-26 15:31 | Emergency (ER) | payer MEDICAID, MEDICARE ==
[2018-09-26] MEDS ORDERED: SODIUM CHLORIDE 0.9% 250 ML IV ONE ×2 (15:40→17:53)
--- NOTE | 2018-09-26 15:44 | ED Physician Documentation ---
PD HPI MAJOR TRAUMA - Stated complaint Stated Complaint: DIZZY - Chief complaint Chief Complaint: Trauma Ch/Bk - History obtained from History obtained from: Patient, EMS - History of Present Illness Mechanism of injury: Fell (This is a 67-year-old woman on dialysis. Followed by ANJALI Schneider. She goes to dialysis Thursday and Thursday. For the last week she has had a cough productive of green sputum and shortness of breath. She is also had progressive weakness and feels off balance and had 2 falls today. On one she went down on both knees, on the other she hit the back of her head. The left knee hurts more than anything else. She is noted to be hypotensive but the paramedics tell me that her normal blood pressure. They also tell me that she was hypoxic and had an oxygen requirement in route, that is not immediately corroborated on initial vital signs here.) Review of Systems Ten Systems: 10 systems reviewed and negative Constitutional: reports: Fatigue. denies: Fever, Chills Nose: denies: Rhinorrhea / runny nose, Congestion Throat: denies: Sore throat Cardiac: denies: Chest pain / pressure, Palpitations Respiratory: reports: Dyspnea, Cough PD PAST MEDICAL HISTORY - Past Medical History Cardiovascular: Atrial fibrillation, Coronary artery disease, Congestive heart failure, Hypertension Respiratory: CPAP use, Shortness of breath, Sleep apnea, COPD Endocrine/Autoimmune: Other (ESRD) GI: GERD, Crohn's disease, Ulcers : Frequency, Renal insuffiency HEENT: Macular degeneration Psych: Depression, Anxiety Musculoskeletal: Chronic back pain, Fatigue Derm: None - Past Surgical History Past Surgical History: Yes General: Cholecystectomy, Appendectomy Ortho: Knee replacement, Hip replacement /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 Cardiovascular: Coronary stent, Cardiac catheterization HEENT: Cataracts, Tonsil/Adenoidectomy - Present Medications Home Medications: Ambulatory Orders Medication Instructions Recorded Confirmed RX: Aspirin [Aspir-Low] 81 mg PO QPM 02/19/16 08/15/17 RX: Sertraline [Zoloft] 100 mg PO DAILY 02/19/16 08/15/17 RX: Allopurinol 100 mg PO DAILY 10/22/16 08/15/17 RX: Gabapentin 300 mg PO TID 10/22/16 08/15/17 RX: Pantoprazole [Protonix] 40 mg PO QDAC 10/22/16 08/15/17 RX: Magnesium Oxide [Mag Ox] 400 mg PO DAILY 08/15/17 08/15/17 RX: Oxycodone HCl/Acetaminophen 1 tab PO Q4H PRN 08/15/17 08/15/17 [Oxycodone-Acetaminophen 5-325] RX: Temazepam [Restoril] 15 mg PO QPM PRN capsule 08/17/17 Cinacalcet HCl [Sensipar] 30 mg PO 09/26/18 09/26/18 RX: Atorvastatin [Lipitor] 09/26/18 09/26/18 RX: Metoprolol Succinate 100 mg PO 09/26/18 09/26/18 - Allergies Allergies/Adverse Reactions: Allergies Allergy/AdvReac Type Severity Reaction Status Date / Time Penicillins Allergy Hives Verified 09/26/18 15:39 povidone-iodine Allergy Rash Verified 09/26/18 15:39 [From Betadine] soap * [From Betadine] Allergy Rash Verified 10/09/16 12:07 Sulfa (Sulfonamide Allergy Rash Verified 09/26/18 15:39 Antibiotics) mushrooms Allergy Severe Anaphylaxis Uncoded 10/11/16 10:38 IV Contrast Allergy Rash Uncoded 10/09/16 12:07 - Social History Does the pt smoke?: No Smoking Status: Former smoker Does the pt drink ETOH?: No Does the pt have substance abuse?: No - Family History Family history: reports: Non contributory - Immunizations Immunizations are current?: Yes - POLST Patient has POLST: No POLST Status: Full Code PD ED PE NORMAL - Vitals Vital signs reviewed: Yes - General General: Alert and oriented X 3, No acute distress - HEENT HEENT: PERRL, EOMI - Neck Neck: Supple, no meningeal sign, No bony TTP - Cardiac Cardiac: RRR, No murmur - Respiratory Respiratory: Other (Wheezy and rhonchorous throughout with good air motion) - Abdomen Abdomen: Soft, Non tender - Back Back: No CVA TTP, No spinal TTP - Derm Derm: Normal color, Warm and dry - Extremities Extremities: No edema, Other (Mild tenderness to the anterior knees, left greater than right without limited range of motion) - Neuro Neuro: Alert and oriented X 3, Normal speech Results - Vitals Vitals: Vital Signs - 24 hr 09/26/18 09/26/1819 15:33 15:56 17:29 Temperature 37.1 C Heart Rate 76 82 Heart Rate [ Supine] Respiratory 22 14 Rate Blood Pressure 86/49 L 103/69 Blood Pressure [Supine] O2 Saturation 95 09/26/18 09/26/18 09/26/18 17:42 18:04 18:24 Temperature 37.2 C Heart Rate 87 80 Heart Rate [ 76 Supine] Respiratory 24 12 Rate Blood Pressure 119/97 H 126/77 Blood Pressure 110/76 [Supine] O2 Saturation 100 94 Oxygen O2 Source Room air - EKG (time done) 1556 Rate: Rate (enter#) (78) Rhythm: NSR [place]: Normal Intervals: Normal PA QRS: Normal Ischemia: Q waves (inf/lat). No: ST elevation c/w ischemia Computer interpretation: Agree with computer - Labs Labs: Laboratory Tests 09/26/18 09/26/18 09/26/18 16:10 17:20 17:20 WBC 6.0 RBC 2.55 L Hgb 8.6 L Hct 25.6 L MCV 100.7 H MCH 33.7 H MCHC 33.4 RDW 13.5 Plt Count 126 L MPV 8.3 Neut # (Auto) 3.6 Lymph # (Auto) 1.4 L [place] # (Auto) 0.7 Eos # (Auto) 0.2 Baso # (Auto) 0.0 Absolute Nucleated RBC 0.00 Nucleated RBC % 0.0 PT 13.0 H INR 1.2 Sodium 135 Potassium 4.6 Chloride 97 L Carbon Dioxide 26 Anion Gap 12.0 BUN 41 H Creatinine 4.7 H Estimated GFR (MDRD) 9 L Glucose 97 Lactic Acid Calcium 8.4 L Total Bilirubin 0.6 AST 24 ALT 14 Alkaline Phosphatase 94 Total Protein 6.2 L Albumin 3.3 Globulin 2.9 Albumin/Globulin Ratio 1.1 Lipase 22 09/26/18 17:20 WBC RBC Hgb Hct MCV MCH MCHC RDW Plt Count MPV Neut # (Auto) Lymph # (Auto) [place] # (Auto) Eos # (Auto) Baso # (Auto) Absolute Nucleated RBC Nucleated RBC % PT INR Sodium Potassium Chloride Carbon Dioxide Anion Gap BUN Creatinine Estimated GFR (MDRD) Glucose Lactic Acid 0.6 Calcium Total Bilirubin AST ALT Alkaline Phosphatase Total Protein Albumin Globulin Albumin/Globulin Ratio Lipase - Rads (name of study) 2 view chest x-ray Radiology: EMP read contemporaneously (Unremarkable) Bilateral knee x-rays Radiology: EMP read contemporaneously (Significant degenerative changes without fracture) CT Head Radiology: EMP read contemporaneously (Chronic incidental findings without intracranial hemorrhage) PD MEDICAL DECISION MAKING - ED course ED course: This is a dialysis patient who was dizzy today and and fell without loss of consciousness hitting her head and knees. X-rays were negative for serious injury. She was orthostatic here and was cautiously hydrated with improvement. Otherwise her anemia is chronic and there are no significant electrolyte abnormalities that need to be intervened upon. Departure - Departure Disposition: 01 Home, Self Care Clinical Impression: End stage renal disease, Orthostatic dizziness, Dehydration Contusion of right knee Qualifiers: Encounter type: initial encounter Qualified Code(s): S80.01XA - Contusion of right knee, initial encounter Contusion of left knee Qualifiers: Encounter type: initial encounter Qualified Code(s): S80.02XA - Contusion of left knee, initial encounter Condition: Stable Record reviewed to determine appropriate education?: Yes Instructions: ED Dizziness UKO Comments: Let your dialysis nurse tomorrow know that you are a little orthostatic here received a total of 500 mL of saline in divided doses. Return for new or worsening symptoms. Discharge Date/Time: 09/26/18 18:46
[2018-09-26 16:25] LABS: ALBUMIN 3.3 g/dL (3.2-5.5); ALBUMIN/GLOBULIN RATIO 1.1 (1.0-2.2); BILIRUBIN,TOTAL 0.6 mg/dL (0.2-1.0); CALCIUM 8.4 mg/dL (8.5-10.3); CREATININE 4.7 mg/dL (0.4-1.0); TOTAL PROTEIN 6.2 g/dL (6.7-8.2)
--- NOTE | 2018-09-26 16:44 | CT Report ---
Reason: HEAD INJ Procedure Date: 09/26/2018 Accession Number: [id number] / [id number] Procedure: CT - HEAD WO CPT Code: FULL RESULT: EXAM: CT HEAD EXAM DATE: 09/26/2018 04:16 PM. CLINICAL HISTORY: Head injury. Fall, hit back of head. COMPARISON: HEAD W/O 05/28/2015 3:28 PM. TECHNIQUE: Multiaxial CT images were obtained from the foramen magnum to the vertex. Reformats: Sagittal and coronal. IV contrast: None. In accordance with CT protocol optimization, one or more of the following dose reduction techniques were utilized for this exam: automated exposure control, adjustment of mA and/or KV based on patient size, or use of iterative reconstructive technique. 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 Multiple small rounded calcifications are again seen mostly related to the left cerebral hemisphere cortex. No evidence for edema. No mass-effect or midline shift. No intracranial hemorrhage. Extraaxial Spaces: Normal for age. No subdural or epidural collections identified. Ventricles: Normal in size and position. Sinuses and Orbits: Imaged paranasal sinuses, orbits, and mastoids show no significant abnormality. Bones: No evidence of fracture or calvarial defect. IMPRESSION: No acute intracranial abnormality seen. 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 Multiple small rounded calcifications are again seen mostly related to the left cerebral hemisphere cortex. RADIA
--- NOTE | 2018-09-26 17:07 | XRAY Report ---
Reason: COUGH DYSPNEA Procedure Date: 09/26/2018 Accession Number: [id number] / [id number] Procedure: XR - Chest 2 View X-Ray CPT Code: 12032 FULL RESULT: EXAM: CHEST RADIOGRAPHY EXAM DATE: 09/26/2018 04:17 PM. CLINICAL HISTORY: COUGH DYSPNEA. COMPARISON: CHEST 1 VIEW 08/15/2017 6:44 AM. TECHNIQUE: 2 views. FINDINGS: Lungs/Pleura: Lung volumes are improved. There are bilateral interstitial densities which appear decreased. No new airspace disease. No consolidation or pneumothorax. Mediastinum: Heart size is normal. There is aortic atherosclerotic calcification. Other: None. IMPRESSION: Improved lung volumes with mild airway thickening or edema without consolidative pneumonia. RADIA
--- NOTE | 2018-09-26 17:09 | XRAY Report ---
Reason: KNEE INJ Procedure Date: 09/26/2018 Accession Number: [id number] / [id number] Procedure: XR - Knee 4 View BILAT CPT Code: FULL RESULT: EXAMS: 1. Right Knee Radiography 2. Left Knee Radiography EXAM DATE:09/26/2018 04:17 PM. CLINICAL HISTORY:Knee injury. Pain. COMPARISON: KNEE 4 VIEW BILAT 09/13/2015 11:12 AM. TECHNIQUE: 4 views each. FINDINGS: Right Knee: Bones: There is increased sclerosis and decreased lucency with spurring and flattening of articular surfaces of the medial tibial plateau and medial femoral condyle. Negative for acute fracture. Joints: There is moderate to severe medial compartment joint space narrowing. No dislocation. Soft Tissues: Unremarkable. Left Knee: Bones: There is mild to moderate sclerosis and spurring of the medial tibial plateau. No acute fracture. Joints: There is moderate medial compartment joint space narrowing. No joint effusion. Soft Tissues: Mild arterial vascular calcifications. IMPRESSION: 1. No acute fracture. 2. Bilateral medial compartment moderately advanced joint space narrowing and chronic degenerative disease. RADIA
[2018-09-26] MEDS ORDERED: IPRATROPIUM/ALBUTEROL 3 ML NEB INH STA (17:20)
[2018-09-26 17:26] LABS: BASOPHILS % (AUTO) 0.5 %; EOSINOPHILS # (AUTO) 0.2 10^3/uL (0.0-0.7); EOSINOPHILS % (AUTO) 3.1 %; HGB - HEMOGLOBIN 8.6 g/dL (12.0-16.0); LYMPHOCYTES # (AUTO) 1.4 10^3/uL (1.5-3.5); LYMPHOCYTES % (AUTO) 23.2 %; MEAN CORPUSCULAR HEMOGLOBIN 33.7 pg (27.0-31.0); MEAN CORPUSCULAR HGB CONC 33.4 g/dL (32.0-36.0); MEAN CORPUSCULAR VOLUME 100.7 fL (81.0-99.0); MEAN PLATELET VOLUME 8.3 fL (7.9-10.8); MONOCYTES # (AUTO) 0.7 10^3/uL (0.0-1.0); MONOCYTES % (AUTO) 12.3 %; NEUTROPHILS # (AUTO) 3.6 10^3/uL (1.5-6.6); NEUTROPHILS % (AUTO) 60.9 %; PLT - PLATELET COUNT 126 10^3/uL (130-450); RED BLOOD COUNT 2.55 10^6/uL (4.20-5.40); RED CELL DISTRIBUTION WIDTH 13.5 % (12.0-15.0)
[2018-09-26 17:31] LABS: INR 1.2 (0.8-1.2)
[2018-09-26] MEDS ORDERED: ACETAMINOPHEN 325 MG TABLET PO STA (17:36)
[2018-09-26 18:43] VITALS: BP 126/77
--- NOTE | 2018-09-28 05:58 | ED Physician Documentation ---
ED Addendum - Addendum Addendum: 09/28/18 05:56 She has a positive blood culture, 1 out of 2, with prelim positive cocci. Consider contaminant, but will need to have her follow up for repeat cultures and potiential empiric treatment. Nursing staff will call patient.
== END 2018-09-26 18:46 | disposition home or self-care (01) ==
LOC: EDUNIT# → ED 15:31
DX: I13.2 Hypertensive heart and chronic kidney disease with heart failure and with stage 5 chronic kidney disease, or end stage renal disease (principal); N18.6 End stage renal disease; I50.9 Heart failure, unspecified; Z99.2 Dependence on renal dialysis; R42 Dizziness and giddiness; E86.0 Dehydration; S80.01XA Contusion of right knee, initial encounter; S80.02XA Contusion of left knee, initial encounter; W18.30XA Fall on same level, unspecified, initial encounter; W22.8XXA Striking against or struck by other objects, initial encounter; I25.10 Atherosclerotic heart disease of native coronary artery without angina pectoris; Z96.659 Presence of unspecified artificial knee joint; Z96.649 Presence of unspecified artificial hip joint; Z95.5 Presence of coronary angioplasty implant and graft; R94.31 Abnormal electrocardiogram [ECG] [EKG]
CPT/HCPCS: 36415; 70450; 71046; 73564; 80053; 83605; 83690; 85025; 85610; 87040; 87077; 87181; 93005; 94640; 96360; 99283; 99284; A9270

== ENCOUNTER 2018-09-29 13:54 | Emergency (ER) | payer MEDICARE ==
--- NOTE | 2018-09-29 15:20 | ED Physician Documentation ---
History of Present Illness - Stated complaint Stated Complaint: POSITIVE BLOOD CULTURES - Chief complaint Chief Complaint: General - History obtained from History obtained from: Patient, Family - History of Present Illness Timing: How many days ago (3) - Additonal information Additional information: 67-year-old female was seen in the emergency department 3 days ago for a fall. At that time blood cultures were drawn and these have now been returned as positive. Review of Systems Constitutional: reports: Fever. denies: Chills Eyes: denies: Decreased vision Ears: denies: Ear pain Nose: denies: Rhinorrhea / runny nose, Congestion Throat: denies: Sore throat Cardiac: denies: Chest pain / pressure, Palpitations Respiratory: reports: Cough. denies: Dyspnea GI: denies: Abdominal Pain, Nausea, Vomiting : denies: Dysuria, Frequency Skin: denies: Rash Musculoskeletal: denies: Neck pain, Back pain, Extremity pain Neurologic: denies: Generalized weakness, Focal weakness, Numbness PD PAST MEDICAL HISTORY - Past Medical History Cardiovascular: Atrial fibrillation, Coronary artery disease, Congestive heart failure, Hypertension Respiratory: CPAP use, Shortness of breath, Sleep apnea, COPD Endocrine/Autoimmune: Other (ESRD) GI: GERD, Crohn's disease, Ulcers : Frequency, Renal insuffiency HEENT: Macular degeneration Psych: Depression, Anxiety Musculoskeletal: Chronic back pain, Fatigue Derm: None - Past Surgical History Past Surgical History: Yes General: Cholecystectomy, Appendectomy Ortho: Knee replacement, Hip replacement /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 Cardiovascular: Coronary stent, Cardiac catheterization HEENT: Cataracts, Tonsil/Adenoidectomy - Present Medications Home Medications: Ambulatory Orders Medication Instructions Recorded Confirmed RX: Aspirin [Aspir-Low] 81 mg PO QPM 02/19/16 09/29/18 RX: Sertraline [Zoloft] 100 mg PO DAILY 02/19/16 09/29/18 RX: Allopurinol 100 mg PO DAILY 10/22/16 09/29/18 RX: Gabapentin 300 mg PO TID 10/22/16 09/29/18 RX: Pantoprazole [Protonix] 40 mg PO QDAC 10/22/16 09/29/18 RX: Magnesium Oxide [Mag Ox] 400 mg PO DAILY 08/15/17 09/29/18 RX: Oxycodone HCl/Acetaminophen 1 tab PO Q4H PRN 08/15/17 09/29/18 [Oxycodone-Acetaminophen 5-325] RX: Temazepam [Restoril] 15 mg PO QPM PRN capsule 08/17/17 09/29/18 Cinacalcet HCl [Sensipar] 30 mg PO DAILY 09/26/18 09/29/18 RX: Atorvastatin [Lipitor] 1 tab PO DAILY 09/26/18 09/29/18 RX: Metoprolol Succinate 100 mg PO DAILY 09/26/18 09/29/18 - Allergies Allergies/Adverse Reactions: Allergies Allergy/AdvReac Type Severity Reaction Status Date / Time Penicillins Allergy Hives Verified 09/29/18 14:03 povidone-iodine Allergy Rash Verified 09/29/18 14:03 [From Betadine] soap * [From Betadine] Allergy Rash Verified 09/29/18 14:03 Sulfa (Sulfonamide Allergy Rash Verified 09/29/18 14:03 Antibiotics) mushrooms Allergy Severe Anaphylaxis Uncoded 09/29/18 14:03 IV Contrast Allergy Rash Uncoded 09/29/18 14:03 - Social History Does the pt smoke?: No Smoking Status: Former smoker Does the pt drink ETOH?: No Does the pt have substance abuse?: No - Immunizations Immunizations are current?: Yes - POLST Patient has POLST: No POLST Status: Full Code PD ED PE NORMAL - Vitals Vital signs reviewed: Yes (hypotensive ) - General General: Alert and oriented X 3, No acute distress, Well developed/nourished - HEENT HEENT: Atraumatic, PERRL, EOMI, Ears normal, Moist mucous membranes, Pharynx benign, Dentition benign - Neck Neck: Supple, no meningeal sign, No bony TTP - Cardiac Cardiac: RRR, No murmur - Respiratory Respiratory: No respiratory distress, Clear bilaterally - Abdomen Abdomen: Soft, Non tender - Back Back: No CVA TTP, No spinal TTP - Derm Derm: Normal color, Warm and dry, No rash - Extremities Extremities: No deformity, No edema - Neuro Neuro: Alert and oriented X 3, 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, No motor deficit, No sensory deficit, Normal speech Eye Opening: Spontaneous Motor: Obeys Commands Verbal: Oriented GCS Score: 15 - Psych Psych: Normal mood, Normal affect Results - Vitals Vitals: Vital Signs - 24 hr 09/29/18 09/29/18 14:00 17:22 Temperature 36.2 C L 36.7 C Heart Rate 94 61 Respiratory 14 16 Rate Blood Pressure 111/46 L 130/72 O2 Saturation 100 96 Oxygen O2 Source Room air - Labs Labs: Laboratory Tests 09/29/18 09/29/18 09/29/18 15:43 15:43 16:26 WBC 5.4 RBC 2.79 L Hgb 9.2 L Hct 27.9 L MCV 100.3 H MCH 33.2 H MCHC 33.1 RDW 13.5 Plt Count 172 MPV 8.0 Neut # (Auto) 3.7 Lymph # (Auto) 0.8 L [place] # (Auto) 0.6 Eos # (Auto) 0.2 Baso # (Auto) 0.0 Absolute Nucleated RBC 0.00 Nucleated RBC % 0.0 Sodium 137 Potassium 3.8 Chloride 95 L Carbon Dioxide 32 Anion Gap 10.0 BUN 8 Creatinine 1.9 H Estimated GFR (MDRD) 26 L Glucose 101 H Lactic Acid 1.1 Calcium 8.7 Total Bilirubin 0.3 AST 25 ALT 17 Alkaline Phosphatase 119 Total Protein 7.2 Albumin 3.7 Globulin 3.5 Albumin/Globulin Ratio 1.1 Lipase 31 Urine Color Urine Clarity Urine pH Ur Specific Bessie Urine Protein Urine Glucose (UA) Urine Ketones Urine Occult Blood Urine Nitrite Urine Bilirubin Urine Urobilinogen Ur Leukocyte Esterase Urine RBC Urine WBC Ur Squamous Epith Cells Urine Bacteria Ur Microscopic Review Urine Culture Comments 09/29/18 16:42 WBC RBC Hgb Hct MCV MCH MCHC RDW Plt Count MPV Neut # (Auto) Lymph # (Auto) [place] # (Auto) Eos # (Auto) Baso # (Auto) Absolute Nucleated RBC Nucleated RBC % Sodium Potassium Chloride Carbon Dioxide Anion Gap BUN Creatinine Estimated GFR (MDRD) Glucose Lactic Acid Calcium Total Bilirubin AST ALT Alkaline Phosphatase Total Protein Albumin Globulin Albumin/Globulin Ratio Lipase Urine Color YELLOW Urine Clarity CLEAR Urine pH 5.0 Ur Specific Bessie 1.020 Urine Protein NEGATIVE Urine Glucose (UA) NEGATIVE Urine Ketones TRACE Urine Occult Blood NEGATIVE Urine Nitrite POSITIVE H Urine Bilirubin NEGATIVE Urine Urobilinogen 0.2 (NORMAL) Ur Leukocyte Esterase TRACE H Urine RBC None Seen Urine WBC 0-3 Ur Squamous Epith Cells MANY Squamous H Urine Bacteria Few Ur Microscopic Review INDICATED Urine Culture Comments NOT INDICATED - Rads (name of study) chest one view Radiology: Prelim report reviewed (Impression: No acute cardiopulmonary abnormality demonstrated.), EMP read indepedently, See rad report Procedures - IVC sono (time) 1510 Bedside IVC sono: IVC measures (cm) (1.67), IVC collapsed c insp (cm) (1.2), Euvolemia PD MEDICAL DECISION MAKING - ED course Complexity details: reviewed results, re-evaluated patient, considered differential, d/w patient, d/w family ED course: 67 y/o dialysis patient with a positive blood culture from a single bottle 3 days ago has returned to the emergency department at the urging of the staff here. She was able to complete her dialysis today she denies any current feeling of illness. She is found to be euvolemic on interrogation of the inferior vena cava and her blood work is otherwise unremarkable. She has normal white blood cell count she is anemic in her usual state and her electrolytes are entirely normal. A chest x-ray done with 1 view is unremarkable. The hospitalist is consulted in the case and recommends drawing WBC and new cultures but likely a contaminant. I suspect the blood culture results are a contaminant and the patient is discharged to home without further treatment. Departure - Departure Disposition: Home, Self Care Clinical Impression: Blood culture positive for microorganism Condition: Stable Instructions: ED Bacteremia Rule Out Follow-Up: Porter Krishnan MD [Primary Care Provider] - Comments: Today your call back to the emergency department for a single blood culture that was positive for a strep organism. Your diagnostics today are all good. We suspect this culture organism is a contaminant. If you become ill return to the emergency department. Discharge Date/Time: 09/29/18 17:25
[2018-09-29 16:11] LABS: ALBUMIN 3.7 g/dL (3.2-5.5); ALBUMIN/GLOBULIN RATIO 1.1 (1.0-2.2); BILIRUBIN,TOTAL 0.3 mg/dL (0.2-1.0); CALCIUM 8.7 mg/dL (8.5-10.3); CREATININE 1.9 mg/dL (0.4-1.0); TOTAL PROTEIN 7.2 g/dL (6.7-8.2)
--- NOTE | 2018-09-29 16:16 | XRAY Report ---
Reason: chest pain Procedure Date: 09/29/2018 Accession Number: [id number] / [id number] Procedure: XR - Chest 1 View X-Ray CPT Code: 18602 FULL RESULT: EXAM: CHEST RADIOGRAPHY EXAM DATE: 09/29/2018 04:02 PM. CLINICAL HISTORY: Chest pain. COMPARISON: CHEST 2 VIEW 09/26/2018 4:17 PM. TECHNIQUE: 1 view. FINDINGS: Lungs/Pleura: No focal opacities evident. No pleural effusion. No pneumothorax. Mediastinum: Heart and mediastinal contours are notable for aortic calcification. Other: None. IMPRESSION: No acute cardiopulmonary abnormality demonstrated. RADIA
[2018-09-29 16:35] LABS: BASOPHILS % (AUTO) 0.8 %; EOSINOPHILS # (AUTO) 0.2 10^3/uL (0.0-0.7); EOSINOPHILS % (AUTO) 3.6 %; HGB - HEMOGLOBIN 9.2 g/dL (12.0-16.0); LYMPHOCYTES # (AUTO) 0.8 10^3/uL (1.5-3.5); LYMPHOCYTES % (AUTO) 15.6 %; MEAN CORPUSCULAR HEMOGLOBIN 33.2 pg (27.0-31.0); MEAN CORPUSCULAR HGB CONC 33.1 g/dL (32.0-36.0); MEAN CORPUSCULAR VOLUME 100.3 fL (81.0-99.0); MONOCYTES # (AUTO) 0.6 10^3/uL (0.0-1.0); MONOCYTES % (AUTO) 11.4 %; NEUTROPHILS # (AUTO) 3.7 10^3/uL (1.5-6.6); NEUTROPHILS % (AUTO) 68.6 %; PLT - PLATELET COUNT 172 10^3/uL (130-450); RED BLOOD COUNT 2.79 10^6/uL (4.20-5.40); RED CELL DISTRIBUTION WIDTH 13.5 % (12.0-15.0); WHITE BLOOD COUNT 5.4 x10^3/uL (4.8-10.8)
[2018-09-29 16:51] LABS: GLUCOSE, URINE (UA) NEGATIVE (NEGATIVE); KETONES,URINE (UA) TRACE mg/dL (NEGATIVE); LEUKOCYTE ESTERASE, URINE TRACE (NEGATIVE); NITRITE,URINE POSITIVE (NEGATIVE); OCCULT BLOOD,URINE NEGATIVE (NEGATIVE); PROTEIN,URINE NEGATIVE (NEGATIVE); UROBILINOGEN,URINE 0.2 (NORMAL) E.U./dL (NORMAL)
[2018-09-29 16:57] LABS: BILIRUBIN,URINE NEGATIVE (NEGATIVE); CLARITY,URINE CLEAR (CLEAR); ICTOTEST,URINE NEGATIVE
[2018-09-29 17:03] LABS: BACTERIA,URINE Few /HPF (None Seen); RBC,URINE None Seen /HPF (0-5); SQUAMOUS EPITHELIAL CELL,UR MANY Squamous (<= Few)
[2018-09-29 17:25] VITALS: BP 130/72
== END 2018-09-29 17:25 | disposition home or self-care (01) ==
LOC: ED 13:54
DX: R78.9 Finding of unspecified substance, not normally found in blood (principal); E86.1 Hypovolemia; Z87.891 Personal history of nicotine dependence; Z99.2 Dependence on renal dialysis
CPT/HCPCS: 36415; 71045; 80053; 81001; 81003; 83605; 83690; 85025; 87040; 87086; 99282; 99283

== ENCOUNTER 2018-10-27 16:55 | Outpatient (CLI) | payer MEDICARE | END 2018-10-27 16:56 | disposition EMS.NT | LOC: EMS 16:55 | PROVIDERS: ATTEND Surgery | DX: M25.562 Pain in left knee (principal) ==

== ENCOUNTER 2018-10-27 17:51 | Emergency (ER) | payer MEDICAID, MEDICARE ==
[2018-10-27 17:59] VITALS: BP 112/49
--- NOTE | 2018-10-27 18:12 | ED Physician Documentation ---
History of Present Illness - Stated complaint Stated Complaint: LT KNEE PAIN - Chief complaint Chief Complaint: General - History obtained from History obtained from: Patient - History of Present Illness Timing: Yesterday (68 yo Woman on dialysis. Yesterday after dialysis she slipped and fell knee first in the ground and injured her left knee. She has a lot of pain there but declines pain medication. She is having difficulty walking because of it. She has a bruise on the shoulder as well but does not hurting her.) Review of Systems Constitutional: reports: Reviewed and negative Cardiac: reports: Reviewed and negative Respiratory: reports: Reviewed and negative PD PAST MEDICAL HISTORY - Past Medical History Cardiovascular: Atrial fibrillation, Coronary artery disease, Congestive heart failure, Hypertension Respiratory: CPAP use, Shortness of breath, Sleep apnea, COPD Endocrine/Autoimmune: Other (ESRD) GI: GERD, Crohn's disease, Ulcers : Frequency, Renal insuffiency HEENT: Macular degeneration Psych: Depression, Anxiety Musculoskeletal: Chronic back pain, Fatigue Derm: None - Past Surgical History Past Surgical History: Yes General: Cholecystectomy, Appendectomy Ortho: Knee replacement, Hip replacement /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: Hysterectomy Cardiovascular: Coronary stent, Cardiac catheterization HEENT: Cataracts, Tonsil/Adenoidectomy - Present Medications Home Medications: Ambulatory Orders Medication Instructions Recorded Confirmed Aspirin [Aspir-Low] 81 mg PO QPM 02/19/16 09/29/18 Sertraline [Zoloft] 100 mg PO DAILY 02/19/16 09/29/18 Allopurinol 100 mg PO DAILY 10/22/16 09/29/18 Gabapentin 300 mg PO TID 10/22/16 09/29/18 Pantoprazole [Protonix] 40 mg PO QDAC 10/22/16 09/29/18 Magnesium Oxide [Mag Ox] 400 mg PO DAILY 08/15/17 09/29/18 Oxycodone HCl/Acetaminophen 1 tab PO Q4H PRN 08/15/17 09/29/18 [Oxycodone-Acetaminophen 5-325] Temazepam [Restoril] 15 mg PO QPM PRN capsule 08/17/17 09/29/18 Atorvastatin [Lipitor] 1 tab PO DAILY 09/26/18 09/29/18 Cinacalcet HCl [Sensipar] 30 mg PO DAILY 09/26/18 09/29/18 Metoprolol Succinate 100 mg PO DAILY 09/26/18 09/29/18 - Allergies Allergies/Adverse Reactions: Allergies Allergy/AdvReac Type Severity Reaction Status Date / Time Iodinated Contrast- Oral and Allergy Rash Verified 10/27/18 18:00 IV Dye mushroom Allergy Anaphylaxis Verified 10/27/18 18:00 Penicillins Allergy Hives Verified 10/27/18 18:00 povidone-iodine Allergy Rash Verified 10/27/18 18:00 [From Betadine] soap * [From Betadine] Allergy Rash Verified 10/27/18 18:00 Sulfa (Sulfonamide Allergy Rash Verified 10/27/18 18:00 Antibiotics) - Social History Does the pt smoke?: No Smoking Status: Former smoker Does the pt drink ETOH?: No Does the pt have substance abuse?: No - Immunizations Immunizations are current?: Yes - POLST Patient has POLST: No POLST Status: Full Code PD ED PE NORMAL - Vitals Vital signs reviewed: Yes - General General: Alert and oriented X 3, No acute distress - Extremities Extremities: Other (Tender over the patella of the left knee without deformity or bruising. No effusion.) - Neuro Neuro: Alert and oriented X 3, Normal speech, Other (She appears to have tardive dyskinesia) Results - Vitals Vitals: Vital Signs - 24 hr 10/27/18 17:57 Temperature 36.7 C Heart Rate 67 Respiratory 24 Rate Blood Pressure 112/49 L O2 Saturation 98 Oxygen O2 Source Room air Departure - Departure Disposition: 01 Home, Self Care Clinical Impression: Contusion of left knee Qualifiers: Encounter type: initial encounter Qualified Code(s): S80.02XA - Contusion of left knee, initial encounter Condition: Stable Instructions: ED Effusion Knee Comments: Followup with your doctor in 1 week if not better.
--- NOTE | 2018-10-27 19:30 | XRAY Report ---
Reason: knee inj Procedure Date: 10/27/2018 Accession Number: [id number] / [id number] Procedure: XR - Knee 4 View LT CPT Code: FULL RESULT: EXAM: LEFT KNEE RADIOGRAPHY EXAM DATE: 10/27/2018 06:45 PM. CLINICAL HISTORY: Knee inj. COMPARISON: KNEE 4 VIEW BILAT 09/26/2018 4:17 PM. TECHNIQUE: 3 views. FINDINGS: Bones: Diffuse osteopenia. No fractures or bone lesions. Joints: A small left knee joint effusion noted. There are tricompartmental degenerative changes of left knee joint. No subluxations. Soft Tissues: Normal. No soft tissue swelling. IMPRESSION: A small left knee joint effusion. Diffuse osteopenia. Tricompartmental degenerative changes of left knee joint. No acute displaced fracture or malalignment. RADIA
== END 2018-10-27 19:44 | disposition home or self-care (01) ==
LOC: ED 17:51
DX: S80.02XA Contusion of left knee, initial encounter (principal); W01.198A Fall on same level from slipping, tripping and stumbling with subsequent striking against other object, initial encounter; I13.2 Hypertensive heart and chronic kidney disease with heart failure and with stage 5 chronic kidney disease, or end stage renal disease; N18.6 End stage renal disease; I50.9 Heart failure, unspecified; Z99.2 Dependence on renal dialysis; I25.10 Atherosclerotic heart disease of native coronary artery without angina pectoris; Z95.5 Presence of coronary angioplasty implant and graft; Z79.82 Long term (current) use of aspirin; Z96.649 Presence of unspecified artificial hip joint; Z96.659 Presence of unspecified artificial knee joint; Z87.891 Personal history of nicotine dependence
CPT/HCPCS: 99282; 99283

== ENCOUNTER 2018-12-31 14:48 | Outpatient (CLI) | payer MEDICARE, MEDICAID | END 2018-12-31 14:49 | disposition critical access hospital (66) | LOC: EMS 14:48 | PROVIDERS: ATTEND Surgery | DX: R07.81 Pleurodynia (principal); M25.562 Pain in left knee; V78.4XXA Person boarding or alighting from bus injured in noncollision transport accident, initial encounter; Y92.811 Bus as the place of occurrence of the external cause | CPT/HCPCS: A0425; A0429 ==

== ENCOUNTER 2018-12-31 15:20 | Emergency (ER) | payer MEDICARE, MEDICAID ==
--- NOTE | 2018-12-31 15:49 | ED Physician Documentation ---
PD HPI Fall - Stated complaint Stated Complaint: GLF - Chief complaint Chief Complaint: Trauma Ext - History obtained from History obtained from: Patient - History of Present Illness Mechanism of injury: Other (lift on paratransit upended her walker) Fall distance: Standing position Where injury occurred: Street Injury(ies) location: Chest (left lower chest), Left Uppper Extremity - Additional information Additional information: The patient is a 68-year-old female with history of COPD and renal failure, on dialysis, who fell when the left on the. Transit van bumped into her walker causing her to fall against the left. She landed on her knees and impacted her chest and left forearm. She denies hitting her head. She reports discomfort at her left forearm and her left little finger. She has been ambulatory with her walker since the incident occurred. Her tetanus status is up-to-date. Review of Systems Constitutional: denies: Fever Ears: denies: Tinnitus/ringing Nose: denies: Congestion Cardiac: reports: Chest pain / pressure (Slight lower anterior chest discomfort at the impact site.) Respiratory: denies: Dyspnea GI: denies: Abdominal Pain, Vomiting Skin: reports: Abrasion (s) (Left little finger, left forearm.) Musculoskeletal: denies: Neck pain, Back pain Neurologic: denies: Focal weakness, Numbness, Headache, Head injury PD PAST MEDICAL HISTORY - Past Medical History Cardiovascular: Atrial fibrillation, Coronary artery disease, Congestive heart failure, Hypertension Respiratory: CPAP use, Shortness of breath, Sleep apnea, COPD Endocrine/Autoimmune: Other (ESRD) GI: GERD, Crohn's disease, Ulcers : Frequency, Renal insuffiency HEENT: Macular degeneration Psych: Depression, Anxiety Musculoskeletal: Chronic back pain, Fatigue Derm: None - Past Surgical History Past Surgical History: Yes General: Cholecystectomy, Appendectomy Ortho: Knee replacement, Hip replacement /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 Cardiovascular: Coronary stent, Cardiac catheterization HEENT: Cataracts, Tonsil/Adenoidectomy - Present Medications Home Medications: Ambulatory Orders Medication Instructions Recorded Confirmed Aspirin [Aspir-Low] 81 mg PO QPM 02/19/16 12/31/18 Sertraline [Zoloft] 100 mg PO DAILY 02/19/16 12/31/18 Allopurinol 100 mg PO DAILY 10/22/16 12/31/18 Gabapentin 300 mg PO TID 10/22/16 12/31/18 Pantoprazole [Protonix] 40 mg PO QDAC 10/22/16 12/31/18 Magnesium Oxide [Mag Ox] 400 mg PO DAILY 08/15/17 12/31/18 Oxycodone HCl/Acetaminophen 1 tab PO Q4H PRN 08/15/17 12/31/18 [Oxycodone-Acetaminophen 5-325] Temazepam [Restoril] 15 mg PO QPM PRN capsule 08/17/17 12/31/18 Atorvastatin [Lipitor] 1 tab PO DAILY 09/26/18 12/31/18 Cinacalcet HCl [Sensipar] 30 mg PO DAILY 09/26/18 12/31/18 Metoprolol Succinate 100 mg PO DAILY 09/26/18 12/31/18 Ciprofloxacin [Cipro] 250 mg PO Q12H 12/31/18 12/31/18 - Allergies Allergies/Adverse Reactions: Allergies Allergy/AdvReac Type Severity Reaction Status Date / Time Iodinated Contrast- Oral and Allergy Rash Verified 12/31/18 15:28 IV Dye mushroom Allergy Anaphylaxis Verified 12/31/18 15:28 Penicillins Allergy Hives Verified 12/31/18 15:28 povidone-iodine Allergy Rash Verified 12/31/18 15:28 [From Betadine] soap * [From Betadine] Allergy Rash Verified 12/31/18 15:28 Sulfa (Sulfonamide Allergy Rash Verified 12/31/18 15:28 Antibiotics) - Social History Does the pt smoke?: No Smoking Status: Former smoker Does the pt drink ETOH?: No Does the pt have substance abuse?: No - Immunizations Immunizations are current?: Yes - POLST Patient has POLST: No POLST Status: Full Code PD ED PE NORMAL - Vitals Vital signs reviewed: Yes (Borderline systolic hypertension.) - General General: Alert and oriented X 3, Well developed/nourished - HEENT HEENT: Atraumatic, EOMI - Neck Neck: No bony TTP, Other (Full cervical range of motion without tenderness.) - Cardiac Cardiac: RRR - Respiratory Respiratory: No respiratory distress, Other (Faint and expiratory wheezing bilaterally.) - Abdomen Abdomen: Soft, Non tender, Other (There is very faint superficial ecchymosis at the left costal margin. There is no abdominal tenderness to palpation, and no bony tenderness to palpation of the lower chest wall.) - Back Back: No spinal TTP - Derm Derm: No rash - Extremities Extremities: No deformity, Other (There is a superficial skin tear at the ulnar aspect of the left forearm. There is no bony tenderness to palpation. There is a superficial abrasion of the left little finger at the PIP joint on the palmar aspect. She has full flexion and extension of the DIP, PIP, and MCP joints against resistance. Distal neurovascular is intact.) - Neuro Neuro: Alert and oriented X 3, No motor deficit, Normal speech Results - Vitals Vitals: Oxygen O2 Source Room air PD MEDICAL DECISION MAKING - ED course Complexity details: considered differential, d/w patient ED course: The patient's presentation is significant for a fall that resulted in superficial skin tear of the left forearm, abrasion of the left little finger, and contusion to the anterior thorax. No imaging studies aren't clinically indicated based on physical examination. Treatment in the emergency department included wound care of the little finger and left forearm. I discussed with her the expected course of injury, symptomatic treatment and outpatient follow-up, as well as potentially worrisome signs or symptoms that should prompt reevaluation in the emergency department. Departure - Departure Disposition: 01 Home, Self Care Clinical Impression: Skin tear of left upper extremity Fall Qualifiers: Encounter type: initial encounter Qualified Code(s): W19.XXXA - Unspecified fall, initial encounter Contusion of front wall of thorax Qualifiers: Encounter type: initial encounter Laterality: left Qualified Code(s): S20.212A - Contusion of left front wall of thorax, initial encounter Condition: Stable Instructions: ED Contusion Chest Wall, ED Avulsion Dermal Follow-Up: Porter Krishnan MD [Provider Admit Priv/Credential] - Comments: Keep the wounds clean, and apply antibiotic ointment daily. You can use Tylenol if needed for discomfort. Follow-up with your primary physician if not improving within 1 week. Return to the emergency department if you develop any sign of infection, increasing chest pain or abdominal pain, shortness of breath, or otherwise worsening symptoms. Discharge Date/Time: 12/31/18 16:27
[2018-12-31 16:12] VITALS: BP 147/54
== END 2018-12-31 16:27 | disposition home or self-care (01) ==
LOC: EDUNIT# → EDBD → ED 15:20
DX: S20.212A Contusion of left front wall of thorax, initial encounter (principal); S51.812A Laceration without foreign body of left forearm, initial encounter; S60.417A Abrasion of left little finger, initial encounter; V04.00XA Pedestrian on foot injured in collision with heavy transport vehicle or bus in nontraffic accident, initial encounter; Y93.01 Activity, walking, marching and hiking; Y92.410 Unspecified street and highway as the place of occurrence of the external cause; I13.2 Hypertensive heart and chronic kidney disease with heart failure and with stage 5 chronic kidney disease, or end stage renal disease; N18.6 End stage renal disease; I50.9 Heart failure, unspecified; Z99.2 Dependence on renal dialysis; Z87.891 Personal history of nicotine dependence; J44.9 Chronic obstructive pulmonary disease, unspecified; Z96.649 Presence of unspecified artificial hip joint; Z96.659 Presence of unspecified artificial knee joint; Z79.82 Long term (current) use of aspirin
CPT/HCPCS: 99282

== ENCOUNTER 2019-01-17 14:26 | Emergency (ER) | payer MEDICARE, MEDICAID ==
[2019-01-17] MEDS ORDERED: HYDROmorphone 1 MG/ML CARPUJECT IM STA (15:22)
--- NOTE | 2019-01-17 15:24 | ED Physician Documentation ---
History of Present Illness - Stated complaint Stated Complaint: GLF/RIB PX SOA - Chief complaint Chief Complaint: General - History obtained from History obtained from: Patient - History of Present Illness Timing: Other (She tripped and fell 3 nights ago hitting her walker and then hitting the TV which came down on her left side and has increasing left rib and breast pain. No productive cough.) Review of Systems Constitutional: reports: Reviewed and negative Throat: reports: Reviewed and negative Respiratory: reports: Reviewed and negative PD PAST MEDICAL HISTORY - Past Medical History Cardiovascular: Atrial fibrillation, Coronary artery disease, Congestive heart failure, Hypertension Respiratory: CPAP use, Shortness of breath, Sleep apnea, COPD Endocrine/Autoimmune: Other (ESRD) GI: GERD, Crohn's disease, Ulcers : Frequency, Renal insuffiency HEENT: Macular degeneration Psych: Depression, Anxiety Musculoskeletal: Chronic back pain, Fatigue Derm: None - Past Surgical History Past Surgical History: Yes General: Cholecystectomy, Appendectomy Ortho: Knee replacement, Hip replacement /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 Cardiovascular: Coronary stent, Cardiac catheterization HEENT: Cataracts, Tonsil/Adenoidectomy - Present Medications Home Medications: Ambulatory Orders Medication Instructions Recorded Confirmed RX: Aspirin [Aspir-Low] 81 mg PO QPM 02/19/16 12/31/18 RX: Sertraline [Zoloft] 100 mg PO DAILY 02/19/16 12/31/18 RX: Allopurinol 100 mg PO DAILY 10/22/16 12/31/18 RX: Gabapentin 300 mg PO TID 10/22/16 12/31/18 RX: Pantoprazole [Protonix] 40 mg PO QDAC 10/22/16 12/31/18 RX: Magnesium Oxide [Mag Ox] 400 mg PO DAILY 08/15/17 12/31/18 RX: Oxycodone HCl/Acetaminophen 1 tab PO Q4H PRN 08/15/17 12/31/18 [Oxycodone-Acetaminophen 5-325] RX: Temazepam [Restoril] 15 mg PO QPM PRN capsule 08/17/17 12/31/18 Cinacalcet HCl [Sensipar] 30 mg PO DAILY 09/26/18 12/31/18 RX: Atorvastatin [Lipitor] 1 tab PO DAILY 09/26/18 12/31/18 RX: Metoprolol Succinate 100 mg PO DAILY 09/26/18 12/31/18 Ciprofloxacin [Cipro] 250 mg PO Q12H 12/31/18 12/31/18 Lidocaine Patch 5% [Lidoderm Patch] 1 patch TOP DAILY PRN #10 patch 01/17/19 RX: oxyCODONE [Roxicodone] 5 mg PO Q4-6H PRN #15 tablet 01/17/19 - Allergies Allergies/Adverse Reactions: Allergies Allergy/AdvReac Type Severity Reaction Status Date / Time Iodinated Contrast- Oral and Allergy Rash Verified 01/17/19 14:34 IV Dye mushroom Allergy Anaphylaxis Verified 01/17/19 14:34 Penicillins Allergy Hives Verified 01/17/19 14:34 povidone-iodine Allergy Rash Verified 01/17/19 14:34 [From Betadine] soap * [From Betadine] Allergy Rash Verified 01/17/19 14:34 Sulfa (Sulfonamide Allergy Rash Verified 01/17/19 14:34 Antibiotics) - Social History Does the pt smoke?: No Smoking Status: Former smoker Does the pt drink ETOH?: No Does the pt have substance abuse?: No - Immunizations Immunizations are current?: Yes - POLST Patient has POLST: No POLST Status: Full Code PD ED PE NORMAL - Vitals Vital signs reviewed: Yes - General General: Alert and oriented X 3, No acute distress - Cardiac Cardiac: RRR, No murmur - Respiratory Respiratory: No respiratory distress, Clear bilaterally, Other (There is a bruise of the inferolateral part of the left breast and left chest wall with kind of diffuse tenderness. No corresponding left upper quadrant tenderness of the abdomen.) - Abdomen Abdomen: Non tender - Derm Derm: Normal color, Warm and dry - Extremities Extremities: No edema, No calf tenderness / cord - Neuro Neuro: Alert and oriented X 3, Normal speech Results - Vitals Vitals: Vital Signs - 24 hr 01/17/19 01/17/19 14:31 16:26 Temperature 37.1 C 36.9 C Heart Rate 60 58 L Respiratory 22 20 Rate Blood Pressure 119/46 L 134/39 H O2 Saturation 95 94 Oxygen O2 Source Room air - Rads (name of study) L ribs and chest Radiology: EMP read contemporaneously (NAD) PD MEDICAL DECISION MAKING - ED course ED course: The patient and family were counseled as to the diagnosis and need for follow- up. I counseled the patient with regard to signs and symptoms that would necessitate an urgent reevaluation in the emergency department. They understand they are welcome to return at any time if worse or if not improving as expected. This document was made in part using voice recognition software. While efforts are made to proofread this documents, sound alike and grammatical errors may occur. Departure - Departure Disposition: 01 Home, Self Care Clinical Impression: Chest wall contusion Condition: Good Record reviewed to determine appropriate education?: Yes Health Concerns: chest wall injury Plan of Treatment: xray neg Care Goals: pain control Assessment: as above Instructions: ED Contusion Chest Wall Prescriptions: Lidocaine Patch 5% [Lidoderm Patch] 1 patch TOP DAILY PRN #10 patch PRN Reason: pain RX: oxyCODONE [Roxicodone] 5 mg PO Q4-6H PRN #15 tablet PRN Reason: Pain Comments: You can take the breakthrough oxycodone in addition to your usual oxycodone for the increased pain. Follow-up with Dr. Krishnan and discuss ongoing pain management if this lingers. Discharge Date/Time: 01/17/19 16:34
--- NOTE | 2019-01-17 15:55 | XRAY Report ---
Reason: chest inj Procedure Date: 01/17/2019 Accession Number: [id number] / [id number] Procedure: XR - Ribs w/PA Chest LT CPT Code: FULL RESULT: EXAM: LEFT RIB RADIOGRAPHY EXAM DATE: 01/17/2019 03:22 PM. CLINICAL HISTORY: Chest injury. A television fell on the patient 2 days ago. Notable bruising under the breast and along the left side. Pain. COMPARISON: CHEST 1 VIEW 09/29/2018 3:48 PM. TECHNIQUE: 1 view of the chest and 2 views of the ribs. FINDINGS: Bones: The bones are qualitatively osteopenic; this limits evaluation for underlying fractures or masses. No displaced fracture is detected. Lungs: Persistent elevation of the left hemidiaphragm. No focal opacities. No pneumothorax. No pleural effusions. Mediastinum: Cardiomegaly and calcified aortic arch are stable. Other: Surgical clips are seen in the left axilla. IMPRESSION: Osteopenia with no displaced fracture identified. RADIA
[2019-01-17 16:27] VITALS: BP 134/39
== END 2019-01-17 16:34 | disposition home or self-care (01) ==
LOC: ED 14:26
DX: S20.219A Contusion of unspecified front wall of thorax, initial encounter (principal); W01.190A Fall on same level from slipping, tripping and stumbling with subsequent striking against furniture, initial encounter; I10 Essential (primary) hypertension; Z87.891 Personal history of nicotine dependence
CPT/HCPCS: 71101; 96372; 99283; J1170

== ENCOUNTER 2019-03-24 11:01 | Outpatient (CLI) | payer MEDICARE, MEDICAID | END 2019-03-24 11:02 | disposition critical access hospital (66) | LOC: EMS 11:01 | PROVIDERS: ATTEND Surgery | DX: R06.00 Dyspnea, unspecified (principal) | CPT/HCPCS: A0425; A0427 ==

== ENCOUNTER 2019-03-24 11:31 | Emergency (ER) | payer MEDICARE, MEDICAID ==
[2019-03-24 12:15] LABS: BASOPHILS % (AUTO) 0.8 %; EOSINOPHILS % (AUTO) 0.8 %; HGB - HEMOGLOBIN 10.8 g/dL (12.0-16.0); LYMPHOCYTES # (AUTO) 1.1 10^3/uL (1.5-3.5); LYMPHOCYTES % (AUTO) 28.3 %; MEAN CORPUSCULAR HEMOGLOBIN 32.4 pg (27.0-31.0); MEAN CORPUSCULAR HGB CONC 30.3 g/dL (32.0-36.0); MEAN CORPUSCULAR VOLUME 106.9 fL (81.0-99.0); MEAN PLATELET VOLUME 10.6 fL (7.9-10.8); MONOCYTES # (AUTO) 0.3 10^3/uL (0.0-1.0); MONOCYTES % (AUTO) 6.9 %; NEUTROPHILS # (AUTO) 2.4 10^3/uL (1.5-6.6); NEUTROPHILS % (AUTO) 62.7 %; PLT - PLATELET COUNT 130 10^3/uL (130-450); RED BLOOD COUNT 3.33 10^6/uL (4.20-5.40); RED CELL DISTRIBUTION WIDTH 13.8 % (12.0-15.0); WHITE BLOOD COUNT 3.9 x10^3/uL (4.8-10.8)
[2019-03-24 12:22] LABS: INR 1.1 (0.8-1.2); PT - PROTHROMBIN TIME 12.8 secs (9.9-12.6)
[2019-03-24] MEDS ORDERED: FUROSEMIDE 40 MG/4 ML VIAL IVP STA (12:23)
[2019-03-24] MEDS ORDERED: ALBUTEROL NEB 2.5 MG/3 ML INH STA (12:23)
--- NOTE | 2019-03-24 12:26 | ED Physician Documentation ---
PD HPI DYSPNEA - Stated complaint Stated Complaint: SOA - Chief complaint Chief Complaint: Resp - History obtained from History obtained from: Patient - History of Present Illness Timing - onset: Other (This is a 68-year-old woman who presents by ambulance for shortness of breath. She has a history of COPD, congestive heart failure, end- stage renal disease, dialyzed Thursday, her ride assembly supervisor is Dr. Schneider. For her COPD she takes Advair twice a daily. She does not have a rescue inhaler. She describes several days worth of waxing and waning shortness of breath associated with only a minimal cough. She is at her dry weight yesterday after dialysis per her. However she does have some orthopnea and just a little bit of symmetric pedal edema. She denies calf pain. There is no associated fevers or chills. She received 2 DuoNeb's and Solu-Medrol in route with some improvement.) Review of Systems Ten Systems: 10 systems reviewed and negative Constitutional: denies: Fever, Chills Nose: denies: Rhinorrhea / runny nose Cardiac: reports: Pedal edema. denies: Chest pain / pressure, Palpitations, Calf pain Respiratory: reports: Dyspnea, Cough GI: denies: Abdominal Pain PD PAST MEDICAL HISTORY - Past Medical History Cardiovascular: Atrial fibrillation, Coronary artery disease, Congestive heart failure, Hypertension Respiratory: CPAP use, Shortness of breath, Sleep apnea, COPD Endocrine/Autoimmune: Other GI: GERD, Crohn's disease, Ulcers : Frequency, Renal insuffiency HEENT: Macular degeneration Psych: Depression, Anxiety Musculoskeletal: Chronic back pain, Fatigue Derm: None - Past Surgical History Past Surgical History: Yes General: Cholecystectomy, Appendectomy Ortho: Knee replacement, Hip replacement /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 Cardiovascular: Coronary stent, Cardiac catheterization HEENT: Cataracts, Tonsil/Adenoidectomy - Present Medications Home Medications: Ambulatory Orders Medication Instructions Recorded Confirmed Aspirin [Aspir-Low] 81 mg PO QPM 02/19/16 12/31/18 Sertraline [Zoloft] 100 mg PO DAILY 02/19/16 12/31/18 Allopurinol 100 mg PO DAILY 10/22/16 12/31/18 Gabapentin 300 mg PO TID 10/22/16 12/31/18 Pantoprazole [Protonix] 40 mg PO QDAC 10/22/16 12/31/18 Magnesium Oxide [Mag Ox] 400 mg PO DAILY 08/15/17 12/31/18 Oxycodone HCl/Acetaminophen 1 tab PO Q4H PRN 08/15/17 12/31/18 [Oxycodone-Acetaminophen 5-325] Temazepam [Restoril] 15 mg PO QPM PRN capsule 08/17/17 12/31/18 Atorvastatin [Lipitor] 1 tab PO DAILY 09/26/18 12/31/18 Cinacalcet HCl [Sensipar] 30 mg PO DAILY 09/26/18 12/31/18 Metoprolol Succinate 100 mg PO DAILY 09/26/18 12/31/18 Ciprofloxacin [Cipro] 250 mg PO Q12H 12/31/18 12/31/18 Lidocaine Patch 5% [Lidoderm Patch] 1 patch TOP DAILY PRN #10 patch 01/17/19 oxyCODONE [Roxicodone] 5 mg PO Q4-6H PRN #15 tablet 01/17/19 Cephalexin [Keflex] 500 mg PO TID #20 capsule 02/05/19 dexAMETHasone [Decadron] 4 mg PO DAILY #5 tablet 02/05/19 oxyCODONE/ACET 5/325 [Percocet 5 1 each PO Q4-6H PRN #15 tablet 02/05/19 mg/325 mg] - Allergies Allergies/Adverse Reactions: Allergies Allergy/AdvReac Type Severity Reaction Status Date / Time Iodinated Contrast Media Allergy Rash Verified 03/24/19 11:38 mushroom Allergy Anaphylaxis Verified 03/24/19 11:38 Penicillins Allergy Hives Verified 03/24/19 11:38 povidone-iodine Allergy Rash Verified 03/24/19 11:38 [From Betadine] soap * [From Betadine] Allergy Rash Verified 03/24/19 11:38 Sulfa (Sulfonamide Allergy Rash Verified 03/24/19 11:38 Antibiotics) - Social History Does the pt smoke?: No Smoking Status: Never smoker Does the pt drink ETOH?: No Does the pt have substance abuse?: No - Family History Family history: reports: Non contributory - Immunizations Immunizations are current?: Yes - POLST Patient has POLST: No POLST Status: Full Code PD ED PE NORMAL - Vitals Vital signs reviewed: Yes - General General: Alert and oriented X 3, Other (Mildly labored breathing, speaking in full sentences though. She appears to have tardive dyskinesia of the tongue.) - HEENT HEENT: PERRL, EOMI - Neck Neck: Supple, no meningeal sign, No bony TTP - Cardiac Cardiac: RRR, No murmur - Respiratory Respiratory: Other (Mildly labored breathing, slightly tachypneic. Rales fpc up with wheezes throughout. Decent air motion.) - Abdomen Abdomen: Non tender - Back Back: No CVA TTP, No spinal TTP - Derm Derm: Normal color, Warm and dry - Extremities Extremities: Other (Minimal bilateral symmetric calf tenderness and edema) - Neuro Neuro: Alert and oriented X 3, Normal speech - Psych Psych: Normal mood, Normal affect Results - Vitals Vitals: Vital Signs - 24 hr 03/24/19 03/24/19 03/24/19 11:34 12:33 13:42 Temperature 36.9 C Heart Rate 58 L 56 L Respiratory 22 20 Rate Blood Pressure 146/72 H O2 Saturation 98 88 L 03/24/19 13:43 Temperature Heart Rate Respiratory Rate Blood Pressure O2 Saturation 94 Oxygen O2 Source Nasal cannula - EKG (time done) 1140 Rate: Rate (enter#) (57) Rhythm: NSR [place]: Normal Intervals: Normal [place] Ischemia: Other (Compared with September 26, 2018, Q waves inferiorly are old, she does have slightly flatter T waves inferiorly and laterally compared to that date. No ST elevation or depression.) Computer interpretation: Agree with computer - Labs Labs: Laboratory Tests 03/24/19 03/24/19 03/24/19 12:07 12:07 12:07 WBC 3.9 L RBC 3.33 L Hgb 10.8 L Hct 35.6 L MCV 106.9 H MCH 32.4 H MCHC 30.3 L RDW 13.8 Plt Count 130 MPV 10.6 Neut # (Auto) 2.4 Lymph # (Auto) 1.1 L [place] # (Auto) 0.3 Eos # (Auto) 0.0 Baso # (Auto) 0.0 Absolute Nucleated RBC 0.00 Nucleated RBC % 0.0 PT 12.8 H INR 1.1 Sodium 132 L Potassium 5.0 Chloride 93 L Carbon Dioxide 33 H Anion Gap 6.0 BUN 22 H Creatinine 3.1 H Estimated GFR (MDRD) 15 L Glucose 106 H Calcium 9.4 Total Bilirubin 0.6 AST 16 ALT 10 Alkaline Phosphatase 125 H Troponin I High Sens B-Natriuretic Peptide Total Protein 6.5 L Albumin 3.8 Globulin 2.7 Albumin/Globulin Ratio 1.4 Lipase 29 03/24/19 03/24/19 12:07 12:07 WBC RBC Hgb Hct MCV MCH MCHC RDW Plt Count MPV Neut # (Auto) Lymph # (Auto) [place] # (Auto) Eos # (Auto) Baso # (Auto) Absolute Nucleated RBC Nucleated RBC % PT INR Sodium Potassium Chloride Carbon Dioxide Anion Gap BUN Creatinine Estimated GFR (MDRD) Glucose Calcium Total Bilirubin AST ALT Alkaline Phosphatase Troponin I High Sens 10.3 B-Natriuretic Peptide 923 H Total Protein Albumin Globulin Albumin/Globulin Ratio Lipase - Rads (name of study) 1v chest Radiology: EMP read contemporaneously (Stable cardiomegaly with pulmonary venous congestion.) PD MEDICAL DECISION MAKING - ED course ED course: This is a 68-year-old woman who has shortness of based on exam and x-ray and labs it seems like a combination of COPD and CHF. She received 3 breathing treatments and 80 mg of IV Lasix here. Despite these interventions she was still running about 88% on room air and will need admission for further evaluation and treatment. Given her dialysis dependence and lack of that service here, [facility] was called at 1:42 PM for transfer. We were notified shortly thereafter that they do not have dialysis beds, they may in a couple of hours. She was accepted by Dr. Phi Melo to [facility] at 2:03 PM pending a bed assignment. [facility] were completed. Departure - Departure Disposition: 02 Transfer Acute Care Hosp Clinical Impression: COPD with exacerbation Congestive heart failure Qualifiers: Heart failure type: other Qualified Code(s): I50.9 - Heart failure, unspecified Condition: Serious
[2019-03-24 12:32] LABS: ALBUMIN 3.8 g/dL (3.2-5.5); ALBUMIN/GLOBULIN RATIO 1.4 (1.0-2.2); BILIRUBIN,TOTAL 0.6 mg/dL (0.2-1.0); CALCIUM 9.4 mg/dL (8.5-10.3); CREATININE 3.1 mg/dL (0.4-1.0); TOTAL PROTEIN 6.5 g/dL (6.7-8.2)
--- NOTE | 2019-03-24 12:37 | XRAY Report ---
Reason: dyspnea Procedure Date: 03/24/2019 Accession Number: [id number] / [id number] Procedure: XR - Chest 1 View X-Ray CPT Code: 97831 FULL RESULT: EXAM: CHEST RADIOGRAPHY EXAM DATE: 03/24/2019 12:13 PM. CLINICAL HISTORY: Dyspnea. COMPARISON: RIBS W/PA CHEST LT 01/17/2019 3:06 PM. TECHNIQUE: 1 view. FINDINGS: Lungs/Pleura: Pulmonary vascularity increased. Increased interstitial markings. Right basilar atelectasis. No focal opacities evident. No pleural effusion. No pneumothorax. Mediastinum: Stable cardiomegaly. Other: None. IMPRESSION: Cardiomegaly, pulmonary venous congestion RADIA
[2019-03-24 14:08] VITALS: BP 137/67
== END 2019-03-24 15:56 | disposition short-term general hospital (02) ==
LOC: ED 11:31
DX: J44.1 Chronic obstructive pulmonary disease with (acute) exacerbation (principal); I13.2 Hypertensive heart and chronic kidney disease with heart failure and with stage 5 chronic kidney disease, or end stage renal disease; I50.9 Heart failure, unspecified; N18.6 End stage renal disease; Z99.2 Dependence on renal dialysis; Z79.82 Long term (current) use of aspirin
CPT/HCPCS: 36415; 71045; 80053; 83690; 83880; 84484; 85025; 85610; 93005; 94640; 94664; 96374; 99285

== ENCOUNTER 2019-03-24 15:56 | Outpatient (CLI) | payer MEDICARE, MEDICAID | END 2019-03-24 15:57 | disposition short-term general hospital (02) | LOC: EMS 15:56 | PROVIDERS: ATTEND Surgery | DX: R06.02 Shortness of breath (principal) | CPT/HCPCS: A0425; A0426 ==

== ENCOUNTER 2019-04-11 14:09 | Outpatient (CLI) | payer MEDICARE, MEDICAID | END 2019-04-11 14:10 | disposition EMS.NT | LOC: EMS 14:09 | PROVIDERS: ATTEND Surgery | DX: R53.1 Weakness (principal) ==

== ENCOUNTER 2019-04-19 21:09 | Outpatient (CLI) | payer MEDICARE, MEDICAID | END 2019-04-19 21:10 | disposition critical access hospital (66) | LOC: EMS 21:09 | PROVIDERS: ATTEND Surgery | DX: R06.02 Shortness of breath (principal); R53.1 Weakness | CPT/HCPCS: A0425; A0427 ==

== ENCOUNTER 2019-04-19 21:33 | Emergency (ER) | payer MEDICARE, MEDICAID ==
--- NOTE | 2019-04-19 21:36 | ED Physician Documentation ---
PD HPI DYSPNEA - Stated complaint Stated Complaint: SOA - History obtained from History obtained from: Patient - History of Present Illness Timing - onset: Chronic Improved by: Inhaler/neb - Additional information Additional information: This is a 68-year-old woman who presents with complaints that for the past 2 to 3 days she is been falling "a lot". She says she does not know why she is falling her legs just give out on her and yesterday she fell landing on her right side and now she is having a lot of right hip pain and difficulty ambulating at home with her walker. When she fell in the kitchen yesterday her sister helped her up. She said her back is bruised up as well but the hip pain is the more significant issue. She did not hit her head and she did not pass out. Denies neck pain. She does have chronic shortness of breath from COPD and CHF and she uses inhalers. She denies any chest pain. The patient is a on dialysis Thursday and and yesterday they took off 5.1 kg. She also has been having increasing leg edema. She denies nausea or vomiting. Patient has had a prior left total hip replacement. She does complain of numbness in her toes bilaterally. Review of Systems Constitutional: denies: Fever Eyes: reports: Other (No acute visual changes.) Throat: reports: Other (Dry mouth) Cardiac: reports: Pedal edema. denies: Chest pain / pressure, Palpitations Respiratory: reports: Dyspnea. denies: Cough GI: denies: Nausea, Vomiting : reports: Other (Patient is on dialysis makes only a couple dribbles of urine daily) Skin: reports: Other (Bruising to the right hip). denies: Rash Musculoskeletal: reports: Back pain, Joint pain. denies: Neck pain Neurologic: reports: Numbness (To the toes), Other Endocrine: reports: Other (Denies diabetes) PD PAST MEDICAL HISTORY - Past Medical History Cardiovascular: Atrial fibrillation, Coronary artery disease, Congestive heart failure, Hypertension Respiratory: CPAP use, Shortness of breath, Sleep apnea, COPD Endocrine/Autoimmune: Other GI: GERD, Crohn's disease, Ulcers : Frequency, Renal insuffiency HEENT: Macular degeneration Psych: Depression, Anxiety Musculoskeletal: Chronic back pain, Fatigue Derm: None - Past Surgical History Past Surgical History: Yes General: Cholecystectomy, Appendectomy Ortho: Knee replacement, Hip replacement /DOCTOR OF PODIATRY: Hysterectomy Cardiovascular: Coronary stent, Cardiac catheterization HEENT: Cataracts, Tonsil/Adenoidectomy - Present Medications Home Medications: Ambulatory Orders Medication Instructions Recorded Confirmed Aspirin [Aspir-Low] 81 mg PO QPM 02/19/16 12/31/18 Sertraline [Zoloft] 100 mg PO DAILY 02/19/16 12/31/18 Allopurinol 100 mg PO DAILY 10/22/16 12/31/18 Gabapentin 300 mg PO TID 10/22/16 12/31/18 Pantoprazole [Protonix] 40 mg PO QDAC 10/22/16 12/31/18 Magnesium Oxide [Mag Ox] 400 mg PO DAILY 08/15/17 12/31/18 Oxycodone HCl/Acetaminophen 1 tab PO Q4H PRN 08/15/17 12/31/18 [Oxycodone-Acetaminophen 5-325] Temazepam [Restoril] 15 mg PO QPM PRN capsule 08/17/17 12/31/18 Atorvastatin [Lipitor] 1 tab PO DAILY 09/26/18 12/31/18 Cinacalcet HCl [Sensipar] 30 mg PO DAILY 09/26/18 12/31/18 Metoprolol Succinate 100 mg PO DAILY 09/26/18 12/31/18 Ciprofloxacin [Cipro] 250 mg PO Q12H 12/31/18 12/31/18 Lidocaine Patch 5% [Lidoderm Patch] 1 patch TOP DAILY PRN #10 patch 01/17/19 oxyCODONE [Roxicodone] 5 mg PO Q4-6H PRN #15 tablet 01/17/19 Cephalexin [Keflex] 500 mg PO TID #20 capsule 02/05/19 dexAMETHasone [Decadron] 4 mg PO DAILY #5 tablet 02/05/19 oxyCODONE/ACET 5/325 [Percocet 5 1 each PO Q4-6H PRN #15 tablet 02/05/19 mg/325 mg] - Allergies Allergies/Adverse Reactions: Allergies Allergy/AdvReac Type Severity Reaction Status Date / Time Iodinated Contrast Media Allergy Rash Verified 03/24/19 11:38 mushroom Allergy Anaphylaxis Verified 03/24/19 11:38 Penicillins Allergy Hives Verified 03/24/19 11:38 povidone-iodine Allergy Rash Verified 03/24/19 11:38 [From Betadine] soap * [From Betadine] Allergy Rash Verified 03/24/19 11:38 Sulfa (Sulfonamide Allergy Rash Verified 03/24/19 11:38 Antibiotics) - Social History Does the pt smoke?: No Smoking Status: Never smoker Does the pt drink ETOH?: No Does the pt have substance abuse?: No - Immunizations Immunizations are current?: Yes - POLST Patient has POLST: No POLST Status: Full Code PD ED PE NORMAL - Vitals Vital signs reviewed: Yes - General General: Alert and oriented X 3, No acute distress, Well developed/nourished, Other (She is edentulous and very difficult to understand her speech.) - HEENT HEENT: Atraumatic, PERRL, Other (Dry mucous membranes. She is edentulous.) - Neck Neck: No bony TTP - Cardiac Cardiac: RRR, No murmur, Strong equal pulses, Other (There is 2-3+ pitting edema of the lower extremities bilaterally) - Respiratory Respiratory: No respiratory distress, Clear bilaterally - Abdomen Abdomen: Normal bowel sounds, Soft, Non tender, No organomegaly - Back Back: Other (There is purple bruising along the right posterior lower rib cage. No subcu emphysema crepitus or crepitance.) - Derm Derm: Warm and dry, No rash - Extremities Extremities: No deformity, Other (There is bruising along the lateral aspect of the right hip and its tender to palpation. She does not seem to have a lot of pain with movement and even is pushing herself up in bed using her legs although she complains that it does hurt.) - Neuro Neuro: Alert and oriented X 3, Other (She is moving all of her extremities equally and even adjusting herself on the bed pushing herself up with her arms and using her feet to push herself back) - Psych Psych: Normal mood, Normal affect Results - Vitals Vitals: Vital Signs - 24 hr 04/19/19 04/20/19 04/20/19 21:35 00:00 00:32 Temperature 36.5 C Heart Rate 57 L 52 L Respiratory 17 17 Rate Blood Pressure 163/63 H 154/62 H O2 Saturation 98 97 92 Oxygen O2 Source Room air - EKG (time done) 2150 Rate: Rate (enter#) (69) Rhythm: NSR Intervals: Prolonged QT Ischemia: Q waves (II, III, aVF) - Labs Labs: Laboratory Tests 04/19/19 04/19/19 04/19/19 22:03 22:03 22:03 WBC 3.4 L RBC 3.18 L Hgb 10.1 L Hct 33.4 L MCV 105.0 H MCH 31.8 H MCHC 30.2 L RDW 13.8 Plt Count 142 MPV 10.4 Neut # (Auto) 1.5 Lymph # (Auto) 1.4 L [place] # (Auto) 0.4 Eos # (Auto) 0.1 Baso # (Auto) 0.0 Absolute Nucleated RBC 0.00 Nucleated RBC % 0.0 Manual Slide Review Indicated Platelet Estimate NORMAL (130-450,000) Platelet Morphology 1+ GIANT PLATELETS RBC Morph Micro Appear NORMAL APPEARANCE Sodium 137 Potassium 4.3 Chloride 95 L Carbon Dioxide 31 Anion Gap 11.0 BUN 24 H Creatinine 3.6 H Estimated GFR (MDRD) 13 L Glucose 133 H Calcium 9.0 Magnesium 2.0 Total Bilirubin 0.5 AST 19 ALT 12 Alkaline Phosphatase 107 Troponin I High Sens 13.0 B-Natriuretic Peptide Total Protein 6.1 L Albumin 3.7 Globulin 2.4 Albumin/Globulin Ratio 1.5 Lipase 23 04/19/19 22:03 WBC RBC Hgb Hct MCV MCH MCHC RDW Plt Count MPV Neut # (Auto) Lymph # (Auto) [place] # (Auto) Eos # (Auto) Baso # (Auto) Absolute Nucleated RBC Nucleated RBC % Manual Slide Review Platelet Estimate Platelet Morphology RBC Morph Micro Appear Sodium Potassium Chloride Carbon Dioxide Anion Gap BUN Creatinine Estimated GFR (MDRD) Glucose Calcium Magnesium Total Bilirubin AST ALT Alkaline Phosphatase Troponin I High Sens B-Natriuretic Peptide 988 H Total Protein Albumin Globulin Albumin/Globulin Ratio Lipase - Rads (name of study) R hip Radiology: EMP read contemporaneously, See rad report (Neg fracture) CXR Radiology: EMP read contemporaneously, See rad report PD MEDICAL DECISION MAKING - ED course Complexity details: reviewed results, re-evaluated patient, d/w patient ED course: The hip is not fractured and CXR has no acute changes. BNP is elevated and she is mildly anemic. Trop is neg. potassium normal. Her O2 sats are 99% on RA and she was up and ambulated with a walker. SHe is due for dialysis tomorrow. Plan for D/C home and she has Percocet to use for pain at home. F/U with her doctor as needed. Departure - Departure Disposition: Home, Self Care Clinical Impression: Contusion of hip Qualifiers: Encounter type: initial encounter Laterality: right Qualified Code(s): S70.01XA - Contusion of right hip, initial encounter Contusion, chest wall Qualifiers: Encounter type: initial encounter Laterality: right Qualified Code(s): S20.211A - Contusion of right front wall of thorax, initial encounter Chronic renal failure Qualifiers: Chronic kidney disease stage: unspecified stage Qualified Code(s): N18.9 - Chronic kidney disease, unspecified Condition: Good Instructions: ED Contusion Chest Wall, ED Contusion Hip Follow-Up: Porter Krishnan MD [Primary Care Provider] - Comments: Take your Percocet at home for pain. Ice to the bruised areas may help. Use your walker when you are up and walking. Be sure to make your dialysis appointment on Thursday. Follow-up with your doctor as needed. Return if shortness of breath or other problems arise. Discharge Date/Time: 04/20/19 01:21
[2019-04-19 22:09] LABS: BASOPHILS % (AUTO) 0.6 %; RED CELL DISTRIBUTION WIDTH 13.8 % (12.0-15.0)
[2019-04-19 22:13] LABS: EOSINOPHILS # (AUTO) 0.1 10^3/uL (0.0-0.7); EOSINOPHILS % (AUTO) 1.5 %; HGB - HEMOGLOBIN 10.1 g/dL (12.0-16.0); LYMPHOCYTES # (AUTO) 1.4 10^3/uL (1.5-3.5); LYMPHOCYTES % (AUTO) 40.8 %; MEAN CORPUSCULAR HEMOGLOBIN 31.8 pg (27.0-31.0); MEAN CORPUSCULAR HGB CONC 30.2 g/dL (32.0-36.0); MEAN PLATELET VOLUME 10.4 fL (7.9-10.8); MONOCYTES # (AUTO) 0.4 10^3/uL (0.0-1.0); MONOCYTES % (AUTO) 12.9 %; NEUTROPHILS # (AUTO) 1.5 10^3/uL (1.5-6.6); NEUTROPHILS % (AUTO) 44.2 %; PLT - PLATELET COUNT 142 10^3/uL (130-450); RED BLOOD COUNT 3.18 10^6/uL (4.20-5.40); WHITE BLOOD COUNT 3.4 x10^3/uL (4.8-10.8)
--- NOTE | 2019-04-19 22:28 | XRAY Report ---
Reason: chest pain Procedure Date: 04/19/2019 Accession Number: [id number] / [id number] Procedure: XR - Chest 1 View X-Ray CPT Code: 72279 FULL RESULT: EXAM: CHEST RADIOGRAPHY EXAM DATE: 04/19/2019 10:17 PM. CLINICAL HISTORY: Chest pain. COMPARISON: CHEST 1 VIEW 03/24/2019 11:58 AM. TECHNIQUE: 1 view. FINDINGS: Stable cardiomegaly. Mild diffuse bilateral interstitial hazy opacities in the lungs appear unchanged, could represent mild interstitial pulmonary edema versus chronic markings. No pleural effusion or pneumothorax. No acute bone findings are seen. IMPRESSION: Stable cardiomegaly. Mild diffuse bilateral interstitial hazy opacities in the lungs appear unchanged, could represent mild interstitial pulmonary edema versus chronic markings. RADIA
[2019-04-19 22:31] LABS: ALBUMIN 3.7 g/dL (3.2-5.5); ALBUMIN/GLOBULIN RATIO 1.5 (1.0-2.2); BILIRUBIN,TOTAL 0.5 mg/dL (0.2-1.0); CREATININE 3.6 mg/dL (0.4-1.0); TOTAL PROTEIN 6.1 g/dL (6.7-8.2)
[2019-04-19 22:43] LABS: PLATELET ESTIMATE, MANUAL NORMAL (130-450,000) (NORMAL); PLATELET MORPHOLOGY 1+ GIANT PLATELETS (NORMAL); RBC MORPHOLOGY (MULTIPLE) NORMAL APPEARANCE (NORMAL)
--- NOTE | 2019-04-19 22:51 | XRAY Report ---
Reason: r hip pain after fall Procedure Date: 04/19/2019 Accession Number: [id number] / [id number] Procedure: XR - Hip w/Pelvis 2-3V RT CPT Code: FULL RESULT: EXAM: RIGHT HIP RADIOGRAPHY EXAM DATE: 04/19/2019 10:17 PM. CLINICAL HISTORY: R hip pain after fall. COMPARISON: HIP W/PELVIS 2-3V RT 12/10/2015 9:48 AM. TECHNIQUE: 2 views. FINDINGS: Bones: Stable appearance of left hip replacement. No evidence of acute fracture. Joints: The right hip joint space appears unremarkable. Soft Tissues: Normal. No soft tissue swelling. IMPRESSION: Stable appearance of the right hip. No evidence of fracture. RADIA
[2019-04-20 00:16] VITALS: BP 154/62
[2019-04-20] MEDS ORDERED: oxyCODONE 5 MG TABLET PO STA (00:52)
== END 2019-04-20 01:21 | disposition home or self-care (01) ==
LOC: EDBD → EDUNIT# → ED 21:33
DX: S70.01XA Contusion of right hip, initial encounter (principal); S20.211A Contusion of right front wall of thorax, initial encounter; W18.30XA Fall on same level, unspecified, initial encounter; Z91.81 History of falling; Y92.000 Kitchen of unspecified non-institutional (private) residence as the place of occurrence of the external cause; I13.2 Hypertensive heart and chronic kidney disease with heart failure and with stage 5 chronic kidney disease, or end stage renal disease; N18.6 End stage renal disease; I50.9 Heart failure, unspecified; Z99.2 Dependence on renal dialysis; J44.9 Chronic obstructive pulmonary disease, unspecified; R94.31 Abnormal electrocardiogram [ECG] [EKG]; D64.9 Anemia, unspecified; Z96.642 Presence of left artificial hip joint; Z96.659 Presence of unspecified artificial knee joint; Z79.82 Long term (current) use of aspirin
CPT/HCPCS: 36415; 71045; 73502; 80053; 83690; 83735; 83880; 84484; 85025; 93005; 99284; A9270

== ENCOUNTER 2019-04-27 06:53 | Outpatient (CLI) | payer MEDICARE, MEDICAID | END 2019-04-27 06:54 | disposition short-term general hospital (02) | LOC: EMS 06:53 | PROVIDERS: ATTEND Surgery | DX: R06.02 Shortness of breath (principal); Z99.2 Dependence on renal dialysis | CPT/HCPCS: A0425; A0427 ==

== ENCOUNTER 2019-06-18 18:33 | Outpatient (CLI) | payer MEDICARE, MEDICAID | END 2019-06-18 18:34 | disposition short-term general hospital (02) | LOC: EMS 18:33 | PROVIDERS: ATTEND Surgery | DX: R06.00 Dyspnea, unspecified (principal); R52 Pain, unspecified | CPT/HCPCS: A0425; A0429 ==

== ENCOUNTER 2019-07-03 11:11 | Outpatient (CLI) | payer MEDICARE, MEDICAID | END 2019-07-03 11:12 | disposition short-term general hospital (02) | LOC: EMS 11:11 | PROVIDERS: ATTEND Surgery | DX: R06.02 Shortness of breath (principal); R07.89 Other chest pain; R11.0 Nausea; R19.7 Diarrhea, unspecified; R03.1 Nonspecific low blood-pressure reading; Z99.2 Dependence on renal dialysis | CPT/HCPCS: A0425; A0427 ==

== ENCOUNTER 2019-07-11 00:01 | Outpatient (CLI) | payer MEDICARE, MEDICAID | END 2019-07-11 00:02 | disposition critical access hospital (66) | LOC: EMS 00:01 | PROVIDERS: ATTEND Surgery | DX: R06.02 Shortness of breath (principal) | CPT/HCPCS: A0425; A0429 ==

== ENCOUNTER 2019-07-11 00:24 | Emergency (ER) | payer MEDICARE, MEDICAID ==
--- NOTE | 2019-07-11 00:45 | ED Physician Documentation ---
PD HPI DYSPNEA - Stated complaint Stated Complaint: DYSPNEA - Chief complaint Chief Complaint: Resp - History obtained from History obtained from: Patient - History of Present Illness Timing - onset: How many weeks ago (She says she has had dyspnea for the last couple of weeks and was hospitalized at [facility] for couple of days and then home and then back and again with dyspnea. She said she had an echocardiogram and stress test which did not show a significant significant findings. She had her usual dialysis this past Thursday and also on Thursday while hospitalized. She was discharged yesterday and was feeling okay and noted dyspnea and hypoxia at home. She was getting a finger oximetry reading of 78%. She increased her home concentrator to 3 L and still felt short of breath. She denied denied any chest pain. She has chronic leg edema which is not worse than usual.) Timing - onset during: Light activity Timing - details: Gradual onset, Still present Inciting event(s): No: Out of meds, URI Improved by: O2. No: Inhaler/neb (she tried Albuterol MDI at home without change.) Worsened by: Exertion, Coughing. No: Laying flat Associated symptoms: Cough (mild for several days). No: Fever Similar symptoms before: Diagnosis (has CHF and COPD, home oxygen 2 lpm and MDIs. Dialysis M,W,F.) Recently seen: Emergency Dept, Admitted ([facility] for eval of dyspnea) Review of Systems Constitutional: denies: Fever, Chills Nose: denies: Rhinorrhea / runny nose, Congestion Throat: denies: Sore throat Cardiac: reports: Pedal edema. denies: Chest pain / pressure, Palpitations, Calf pain Respiratory: reports: Dyspnea, Cough, Wheezing GI: denies: Abdominal Pain, Nausea, Vomiting, Diarrhea, Bloody / black stool Neurologic: reports: Generalized weakness. denies: Focal weakness, Numbness, Altered mental status, Headache PD PAST MEDICAL HISTORY - Past Medical History Cardiovascular: Atrial fibrillation, Coronary artery disease, Congestive heart failure, Hypertension Respiratory: CPAP use, Shortness of breath, Sleep apnea, COPD Endocrine/Autoimmune: Other GI: GERD, Crohn's disease, Ulcers : Dialysis, Renal insuffiency, Frequency HEENT: Macular degeneration Psych: Depression, Anxiety Musculoskeletal: Chronic back pain, Fatigue Derm: None - Past Surgical History Past Surgical History: Yes General: Cholecystectomy, Appendectomy Ortho: Knee replacement, Hip replacement /SHOCHET: Hysterectomy Cardiovascular: Coronary stent, Cardiac catheterization HEENT: Cataracts, Tonsil/Adenoidectomy - Present Medications Home Medications: Ambulatory Orders Medication Instructions Recorded Confirmed Aspirin [Aspir-Low] 81 mg PO QPM 02/19/16 12/31/18 Sertraline [Zoloft] 100 mg PO DAILY 02/19/16 12/31/18 Gabapentin 300 mg PO TID 10/22/16 12/31/18 Pantoprazole [Protonix] 40 mg PO QDAC 10/22/16 12/31/18 allopurinoL [Allopurinol] 100 mg PO DAILY 10/22/16 12/31/18 Magnesium Oxide [Mag Ox] 400 mg PO DAILY 08/15/17 12/31/18 Temazepam [Restoril] 15 mg PO QPM PRN capsule 08/17/17 12/31/18 Atorvastatin [Lipitor] 1 tab PO DAILY 09/26/18 12/31/18 Cinacalcet HCl [Sensipar] 30 mg PO DAILY 09/26/18 12/31/18 Metoprolol Succinate 100 mg PO DAILY 09/26/18 12/31/18 Albuterol Sulfate [Albuterol 2 puffs IH QID #1 hfa.aer.ad 07/11/19 Sulfate Hfa] Oxycodone HCl/Acetaminophen 1 each PO QID PRN #16 tablet 07/11/19 [Percocet 10-325 mg Tablet] Oxycodone HCl/Acetaminophen 1 tab PRN 07/11/19 [Percocet 10-325 mg Tablet] dexAMETHasone [Decadron] 4 mg PO DAILY #7 tablet 07/11/19 - Allergies Allergies/Adverse Reactions: Allergies Allergy/AdvReac Type Severity Reaction Status Date / Time Iodinated Contrast Media Allergy Rash Verified 03/24/19 11:38 mushroom Allergy Anaphylaxis Verified 03/24/19 11:38 Penicillins Allergy Hives Verified 03/24/19 11:38 povidone-iodine Allergy Rash Verified 03/24/19 11:38 [From Betadine] soap * [From Betadine] Allergy Rash Verified 03/24/19 11:38 Sulfa (Sulfonamide Allergy Rash Verified 03/24/19 11:38 Antibiotics) - Social History Does the pt smoke?: No Smoking Status: Never smoker Does the pt drink ETOH?: No Does the pt have substance abuse?: No - Immunizations Immunizations are current?: Yes - POLST Patient has POLST: No POLST Status: Full Code PD ED PE NORMAL - Vitals Vital signs reviewed: Yes - General General: Alert and oriented X 3, No acute distress, Well developed/nourished - HEENT HEENT: Moist mucous membranes, Pharynx benign - Neck Neck: Supple, no meningeal sign, No adenopathy - Cardiac Cardiac: RRR (mild michelle at 51) - Respiratory Respiratory: No: Clear bilaterally (mild diffuse wheezing with prolonged exp phase. ) - Abdomen Abdomen: Soft, Non tender - Derm Derm: Normal color, Warm and dry - Extremities Extremities: No tenderness to palpate, Normal ROM s pain, No calf tenderness / cord, Other (1+ edema in both lower legs. ) - Neuro Neuro: Alert and oriented X 3, No motor deficit, Normal speech Results - Vitals Vitals: Vital Signs - 24 hr 07/11/19 07/11/19 07/11/19 00:25 01:19 02:02 Temperature 36.9 C Heart Rate 51 L 52 L 58 L Respiratory 18 13 14 Rate Blood Pressure 118/65 117/38 L O2 Saturation 99 92 Oxygen O2 Source Nasal cannula Oxygen Flow Rate 2 - EKG (time done) 00:33 Rate: Rate (enter#) (51) Rhythm: Sinus bradycardia [place]: Normal Intervals: Normal [place] QRS: Low voltage Ischemia: Normal ST segments. No: ST elevation c/w ischemia, ST depression Compare to prior EKG: Unchanged from prior EKG (04/19/19) - Labs Labs: Laboratory Tests 07/11/19 07/11/19 07/11/19 01:49 01:49 01:49 WBC 5.8 RBC 3.15 L Hgb 9.9 L Hct 33.2 L MCV 105.4 H MCH 31.4 H MCHC 29.8 L RDW 15.0 Plt Count 138 MPV 10.8 Neut # (Auto) 3.8 Lymph # (Auto) 1.2 L Andrew # (Auto) 0.7 Eos # (Auto) 0.1 Baso # (Auto) 0.0 Absolute Nucleated RBC 0.00 Nucleated RBC % 0.0 Sodium 129 L Potassium 5.2 H Chloride 93 L Carbon Dioxide 28 Anion Gap 8.0 BUN 37 H Creatinine 3.8 H Estimated GFR (MDRD) 12 L Glucose 88 Calcium 8.8 Magnesium 2.0 Total Bilirubin 0.5 AST 17 ALT 11 Alkaline Phosphatase 75 Troponin I High Sens 12.8 B-Natriuretic Peptide Total Protein 6.7 Albumin 3.5 Globulin 3.2 Albumin/Globulin Ratio 1.1 Lipase 26 07/11/19 01:49 WBC RBC Hgb Hct MCV MCH MCHC RDW Plt Count MPV Neut # (Auto) Lymph # (Auto) Andrew # (Auto) Eos # (Auto) Baso # (Auto) Absolute Nucleated RBC Nucleated RBC % Sodium Potassium Chloride Carbon Dioxide Anion Gap BUN Creatinine Estimated GFR (MDRD) Glucose Calcium Magnesium Total Bilirubin AST ALT Alkaline Phosphatase Troponin I High Sens B-Natriuretic Peptide 1213 H Total Protein Albumin Globulin Albumin/Globulin Ratio Lipase - Rads (name of study) chest xray Radiology: Prelim report reviewed (pulmonary findings c/w mild fluid overload) PD MEDICAL DECISION MAKING - ED course Complexity details: considered differential (We will get blood tests and x-ray. She does have some wheeziness and can give a nebulizer. Her oxygenation is 99% on 2 L nasal cannula here. She states she did feel her oxygen set up and tubing were connected and working well at home. COPD would be more likely reason for several in this manner with the nebulizer. I am inclined to think this is more COPD flareup rather than CHF. A chest x-ray has not very exciting.), d/w patient Departure - Departure Disposition: 01 Home, Self Care Clinical Impression: Acute dyspnea, Acute exacerbation of COPD with asthma Condition: Stable Record reviewed to determine appropriate education?: Yes Follow-Up: Porter Krishnan MD [Primary Care Provider] - Prescriptions: Albuterol Sulfate [Albuterol Sulfate Hfa] 2 puffs IH QID #1 hfa.aer.ad dexAMETHasone [Decadron] 4 mg PO DAILY #7 tablet Oxycodone HCl/Acetaminophen [Percocet 10-325 mg Tablet] 1 each PO QID PRN #16 tablet PRN Reason: Pain Comments: I think your trouble breathing was from a flareup of your COPD and not necessarily fluid overload. There could certainly be elements of both. Go to your dialysis later today as planned. Use albuterol inhaler 2 to 3 puffs 4 times a day for the next week and extra times as needed for wheeziness and short of breath. Use Decadron steroid anti- inflammatory for the next week daily. Continue usual medications. I wrote a prescription for your pain pills to use until your next prescription is available on the second. 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
[2019-07-11] MEDS ORDERED: IPRATROPIUM/ALBUTEROL 3 ML NEB INH STA (01:00)
[2019-07-11] MEDS ORDERED: DEXAMETHASONE 10 MG/ML VIAL IVP STA (01:01)
--- NOTE | 2019-07-11 01:37 | XRAY Report ---
Reason: chest pain Procedure Date: 07/11/2019 Accession Number: [id number] / [id number] Procedure: XR - Chest 1 View X-Ray CPT Code: 04662 Final Report FULL RESULT: EXAM: CHEST RADIOGRAPHY EXAM DATE: 07/11/2019 01:24 AM. CLINICAL HISTORY: Chest pain. COMPARISON: CHEST 1 VIEW 04/19/2019 9:51 PM. CHEST 1 VIEW 03/24/2019 11:58 AM. THORACIC SPINE W/O 02/05/2019 4:05 PM. CHEST 1 VIEW 09/29/2018 3:48 PM. TECHNIQUE: 1 view. FINDINGS: Lungs/Pleura: There is pulmonary vascular distention with mild septal thickening. No confluent lung consolidation. No pleural effusion or pneumothorax. Mediastinum: The heart is mildly enlarged. Other: None. IMPRESSION: Pulmonary findings suggesting mild fluid overload. RADIA
[2019-07-11 01:58] LABS: BASOPHILS % (AUTO) 0.7 %; EOSINOPHILS # (AUTO) 0.1 10^3/uL (0.0-0.7); EOSINOPHILS % (AUTO) 1.5 %; HGB - HEMOGLOBIN 9.9 g/dL (12.0-16.0); LYMPHOCYTES # (AUTO) 1.2 10^3/uL (1.5-3.5); LYMPHOCYTES % (AUTO) 20.4 %; MEAN CORPUSCULAR HEMOGLOBIN 31.4 pg (27.0-31.0); MEAN CORPUSCULAR HGB CONC 29.8 g/dL (32.0-36.0); MEAN CORPUSCULAR VOLUME 105.4 fL (81.0-99.0); MEAN PLATELET VOLUME 10.8 fL (7.9-10.8); MONOCYTES # (AUTO) 0.7 10^3/uL (0.0-1.0); MONOCYTES % (AUTO) 11.1 %; NEUTROPHILS # (AUTO) 3.8 10^3/uL (1.5-6.6); NEUTROPHILS % (AUTO) 65.8 %; PLT - PLATELET COUNT 138 10^3/uL (130-450); RED BLOOD COUNT 3.15 10^6/uL (4.20-5.40); WHITE BLOOD COUNT 5.8 x10^3/uL (4.8-10.8)
[2019-07-11 02:11] LABS: ALBUMIN 3.5 g/dL (3.2-5.5); ALBUMIN/GLOBULIN RATIO 1.1 (1.0-2.2); BILIRUBIN,TOTAL 0.5 mg/dL (0.2-1.0); CALCIUM 8.8 mg/dL (8.5-10.3); CREATININE 3.8 mg/dL (0.4-1.0); TOTAL PROTEIN 6.7 g/dL (6.7-8.2)
[2019-07-11] MEDS ORDERED: oxyCODONE 5 MG TABLET PO STA (02:29)
[2019-07-11 03:33] VITALS: BP 112/80
== END 2019-07-11 03:45 | disposition home or self-care (01) ==
LOC: EDBD → EDUNIT# → ED 00:24
DX: J44.1 Chronic obstructive pulmonary disease with (acute) exacerbation (principal); I11.0 Hypertensive heart disease with heart failure; I50.9 Heart failure, unspecified; R00.1 Bradycardia, unspecified; N28.9 Disorder of kidney and ureter, unspecified; Z99.2 Dependence on renal dialysis; Z79.82 Long term (current) use of aspirin
CPT/HCPCS: 36415; 71045; 80053; 83690; 83735; 83880; 84484; 85025; 93005; 94640; 96374; 99284; 99285; A9270

== ENCOUNTER 2019-07-18 15:43 | Outpatient (CLI) | payer MEDICARE, MEDICAID | END 2019-07-18 15:44 | disposition critical access hospital (66) | LOC: EMS 15:43 | PROVIDERS: ATTEND Surgery | DX: R06.02 Shortness of breath (principal); R07.9 Chest pain, unspecified; R04.2 Hemoptysis | CPT/HCPCS: A0425; A0427 ==

== ENCOUNTER 2019-07-18 16:07 | Emergency (ER) | payer MEDICARE, MEDICAID ==
[2019-07-18] MEDS ORDERED: NITROGLYCERIN 50 MG/250 ML 50 MG/250 ML BOTTLE IV STA (16:11)
[2019-07-18] MEDS ORDERED: NITROGLYCERIN SL 0.4 MG TABLET SL STA (16:11)
--- NOTE | 2019-07-18 16:13 | ED Physician Documentation ---
PD HPI DYSPNEA - Stated complaint Stated Complaint: SOA - History obtained from History obtained from: Patient, EMS - History of Present Illness Timing - onset: Today (68-year-old woman on dialysis, Thursday. Reportedly did not complete dialysis run today because of hypotension, it is not clear how much they took off fluid victoria. Subsequent to that she became very short of breath, low sats in route. They were going to go over to [place] but she came sicker in route with frothy hemoptysis and respiratory distress on CPAP so diverted here for stabilization. History is limited on admit initial evaluation due to respiratory distress but she says she is full code and would like to be intubated and transferred if necessary. She denies any new specific pains, only complains of chronic back and knee pain.) Review of Systems Unable to obtain: Other (limited d/t resp distress) PD PAST MEDICAL HISTORY - Past Medical History Cardiovascular: Atrial fibrillation, Coronary artery disease, Congestive heart failure, Hypertension Respiratory: CPAP use, Shortness of breath, Sleep apnea, COPD Endocrine/Autoimmune: Other GI: GERD, Crohn's disease, Ulcers : Dialysis, Renal insuffiency, Frequency HEENT: Macular degeneration Psych: Depression, Anxiety Musculoskeletal: Chronic back pain, Fatigue Derm: None - Past Surgical History Past Surgical History: Yes General: Cholecystectomy, Appendectomy Ortho: Knee replacement, Hip replacement /[employer]: Hysterectomy Cardiovascular: Coronary stent, Cardiac catheterization HEENT: Cataracts, Tonsil/Adenoidectomy - Present Medications Home Medications: Ambulatory Orders Medication Instructions Recorded Confirmed Aspirin [Aspir-Low] 81 mg PO QPM 02/19/16 12/31/18 Sertraline [Zoloft] 100 mg PO DAILY 02/19/16 12/31/18 Gabapentin 300 mg PO TID 10/22/16 12/31/18 Pantoprazole [Protonix] 40 mg PO QDAC 10/22/16 12/31/18 allopurinoL [Allopurinol] 100 mg PO DAILY 10/22/16 12/31/18 Magnesium Oxide [Mag Ox] 400 mg PO DAILY 08/15/17 12/31/18 Temazepam [Restoril] 15 mg PO QPM PRN capsule 08/17/17 12/31/18 Atorvastatin [Lipitor] 1 tab PO DAILY 09/26/18 12/31/18 Cinacalcet HCl [Sensipar] 30 mg PO DAILY 09/26/18 12/31/18 Metoprolol Succinate 100 mg PO DAILY 09/26/18 12/31/18 Albuterol Sulfate [Albuterol 2 puffs IH QID #1 hfa.aer.ad 07/11/19 Sulfate Hfa] Oxycodone HCl/Acetaminophen 1 each PO QID PRN #16 tablet 07/11/19 [Percocet 10-325 mg Tablet] Oxycodone HCl/Acetaminophen 1 tab PRN 07/11/19 [Percocet 10-325 mg Tablet] dexAMETHasone [Decadron] 4 mg PO DAILY #7 tablet 07/11/19 - Allergies Allergies/Adverse Reactions: Allergies Allergy/AdvReac Type Severity Reaction Status Date / Time Iodinated Contrast Media Allergy Rash Verified 03/24/19 11:38 mushroom Allergy Anaphylaxis Verified 03/24/19 11:38 Penicillins Allergy Hives Verified 03/24/19 11:38 povidone-iodine Allergy Rash Verified 03/24/19 11:38 [From Betadine] soap * [From Betadine] Allergy Rash Verified 03/24/19 11:38 Sulfa (Sulfonamide Allergy Rash Verified 03/24/19 11:38 Antibiotics) - Social History Does the pt smoke?: No Smoking Status: Never smoker Does the pt drink ETOH?: No Does the pt have substance abuse?: No - Immunizations Immunizations are current?: Yes - POLST Patient has POLST: No POLST Status: Full Code PD ED PE NORMAL - Vitals Vital signs reviewed: Yes - General General: Other (68-year-old woman on CPAP and respiratory distress) - HEENT HEENT: PERRL, EOMI - Neck Neck: Supple, no meningeal sign, No bony TTP - Cardiac Cardiac: RRR, No murmur - Respiratory Respiratory: Other (Tachypneic, labored breathing, diminished at the bases) - Abdomen Abdomen: Non tender - Back Back: No CVA TTP, No spinal TTP - Derm Derm: Normal color, Warm and dry - Extremities Extremities: Other (Trace pitting pedal edema) - Neuro Neuro: Alert and oriented X 3, Normal speech Results - Vitals Vitals: Vital Signs - 24 hr 07/18/19 07/18/19 16:11 16:23 Temperature 38.8 C H Heart Rate 65 63 Respiratory 19 17 Rate Blood Pressure 99/80 107/48 L O2 Saturation 98 100 Oxygen O2 Source CPAP - EKG (time done) 720 Rate: Rate (enter#) (52) Rhythm: NSR [place]: Normal Intervals: Normal FL Ischemia: Non specific changes Computer interpretation: Agree with computer - Labs Labs: Laboratory Tests 07/18/19 07/18/19 07/18/19 16:25 16:25 16:25 WBC 15.9 H RBC 3.50 L Hgb 11.1 L Hct 36.6 L MCV 104.6 H MCH 31.7 H MCHC 30.3 L RDW 15.3 H Plt Count 241 MPV 9.6 Neut # (Auto) 14.2 H Lymph # (Auto) 0.7 L [place] # (Auto) 0.8 Eos # (Auto) 0.0 Baso # (Auto) 0.1 Absolute Nucleated RBC 0.00 Nucleated RBC % 0.0 PT 12.9 H INR 1.1 APTT 26.0 VBG pH VBG pCO2 VBG pO2 VBG HCO3 VBG Total CO2 VBG O2 Saturation VBG Base Excess Sodium 134 L Potassium 3.4 L Chloride 97 L Carbon Dioxide 27 Anion Gap 10.0 BUN 15 Creatinine 2.3 H Estimated GFR (MDRD) 21 L Glucose 115 H Lactic Acid Calcium 8.8 Total Bilirubin 0.5 AST 19 ALT 12 Alkaline Phosphatase 68 Troponin I High Sens B-Natriuretic Peptide Total Protein 6.3 L Albumin 3.5 Globulin 2.8 Albumin/Globulin Ratio 1.3 Lipase 23 Influenza A (Rapid) Influenza B (Rapid) 07/18/19 07/18/19 07/18/19 16:25 16:25 16:47 WBC RBC Hgb Hct MCV MCH MCHC RDW Plt Count MPV Neut # (Auto) Lymph # (Auto) [place] # (Auto) Eos # (Auto) Baso # (Auto) Absolute Nucleated RBC Nucleated RBC % PT INR APTT VBG pH VBG pCO2 VBG pO2 VBG HCO3 VBG Total CO2 VBG O2 Saturation VBG Base Excess Sodium Potassium Chloride Carbon Dioxide Anion Gap BUN Creatinine Estimated GFR (MDRD) Glucose Lactic Acid Calcium Total Bilirubin AST ALT Alkaline Phosphatase Troponin I High Sens 16.7 H* B-Natriuretic Peptide 1614 H Total Protein Albumin Globulin Albumin/Globulin Ratio Lipase Influenza A (Rapid) Negative Influenza B (Rapid) Negative 07/18/19 07/18/19 17:43 17:43 WBC RBC Hgb Hct MCV MCH MCHC RDW Plt Count MPV Neut # (Auto) Lymph # (Auto) [place] # (Auto) Eos # (Auto) Baso # (Auto) Absolute Nucleated RBC Nucleated RBC % PT INR APTT VBG pH 7.387 VBG pCO2 48.9 VBG pO2 52.9 H VBG HCO3 28.7 H VBG Total CO2 30.2 H VBG O2 Saturation 88.6 H VBG Base Excess 3.1 H Sodium Potassium Chloride Carbon Dioxide Anion Gap BUN Creatinine Estimated GFR (MDRD) Glucose Lactic Acid 1.6 Calcium Total Bilirubin AST ALT Alkaline Phosphatase Troponin I High Sens B-Natriuretic Peptide Total Protein Albumin Globulin Albumin/Globulin Ratio Lipase Influenza A (Rapid) Influenza B (Rapid) - Rads (name of study) 1v chest Radiology: EMP read contemporaneously (Mild cardiomegaly and bilateral pulmonary vascular congestion consistent with CHF, endotracheal tube 1 cm above the maria guadalupe (I pulled it back 1 more centimeter after this x-ray), right IJ catheter with the tip in the mid right atrium (I pulled this line back 4 cm after this x- ray).) Procedures - Intubation Provider: Emergency physician Medications: Propofol (100MG), Rocuronium (100MG) Blade: Belen (4) Tube: Size-enter number (7.5), Cuffed Route: Oral Confirmation: Direct visualization, Bilateral breath sounds, No abdominal breath sound, Chest xray Complications: No compications - Central Line Central Line Preparation: Unable to obtain consent, Ultrasound used Central line location: Right IJ Central line type: Triple lumen (7f) Central line aftercare: Chlorhexidine disc placed, Secured, Placement confirmed, No pneumothorax, No complications, Bundle checklist complete PD MEDICAL DECISION MAKING - ED course ED course: After the chest x-ray the central line was drawn back 4 cm and the endotracheal tube 1 cm by me 68-year-old woman with history of dialysis, coronary disease, congestive heart failure presents with respiratory distress in the setting of bloody frothy sputum concerning for CHF. She is also noted to be febrile. She did need to be intubated, initially IV access was difficult to obtain and we started with a plain IV in the right IJ using real-time ultrasound guidance which was replaced after intubation with a central line after a full sterile prep. Labs suggest some element of sepsis, she was administered cefepime and Vanco after blood cultures. Also needed a little IV fluids for transient hypotension. As such I did not give her anything primarily for potential CHF, her x-ray does not look too fluffy to my eye. Prior to intubation we discussed disposition and she wanted to go to [facility], unfortunately they were full so after that I tried calling [facility] to see if they had a bed. I also called all the numbers on the chart to see if any family was available for an update, there was no answer at any of the numbers. [facility] had no beds available either. Accepted by Dr Perry to [facility] ICU at 1735, cobras completed. She did become more hypotensive after the first 500 mL fluid bolus, second bolus of 500 mL was ordered and Levophed was ordered as well. Fluid boluses were given cautiously given the underlying renal failure and dialysis dependence. Neither [facility] nor [facility] were able to fly due to the weather. - Critical Care Time(min): 50 Time Includes: Direct patient care, Review records, Reassess patient, Document care, Coordinate care, Medical consult Data interpretation: Labs, Pulse ox Procedures included in critical care time: Peripheral IV Procedures excluded from critical care time: Central IV, Intubation, EKG Departure - Departure Disposition: 02 Transfer Acute Care Hosp Clinical Impression: End stage renal disease Congestive heart failure Qualifiers: Heart failure type: unspecified Heart failure chronicity: acute Qualified Code(s): I50.9 - Heart failure, unspecified Fever Qualifiers: Fever type: unspecified Qualified Code(s): R50.9 - Fever, unspecified Respiratory failure Qualifiers: Chronicity: acute Respiratory failure complication: unspecified whether with hypoxia or hypercapnia Qualified Code(s): J96.00 - Acute respiratory failure, unspecified whether with hypoxia or hypercapnia Sepsis Qualifiers: Sepsis type: sepsis due to unspecified organism Sepsis acute organ dysfunction status: with acute organ dysfunction Severe sepsis acute organ dysfunction type: acute respiratory failure Acute respiratory failure type: unspecified Severe sepsis shock status: with septic shock Qualified Code(s): A41.9 - Sepsis, unspecified organism Condition: Critical
[2019-07-18] MEDS ORDERED: ETOMIDATE 40 MG/20 ML VIAL IVP ONE (16:18)
[2019-07-18] MEDS ORDERED: SUCCINYLCHOLINE 200 MG/10 ML VIAL ONE (16:19)
[2019-07-18] MEDS ORDERED: ROCURONIUM 50 MG/5 ML VIAL IVP ONE (16:19)
[2019-07-18] MEDS ORDERED: PROPOFOL 200 MG/20 ML VIAL IVP ONE (16:22)
[2019-07-18] MEDS ORDERED: PROPOFOL 1000 MG/100 ML 100 ML IV STA (16:22)
[2019-07-18] MEDS ORDERED: ROCURONIUM 50 MG/5 ML VIAL IVP STA (16:22)
[2019-07-18] MEDS ORDERED: PROPOFOL 200 MG/20 ML VIAL IVP STA (16:22)
--- NOTE | 2019-07-18 16:25 | XRAY Report ---
Reason: dyspnea Procedure Date: 07/18/2019 Accession Number: [id number] / [id number] Procedure: XR - Chest 1 View X-Ray CPT Code: 38571 Final Report FULL RESULT: EXAM: CHEST RADIOGRAPHY EXAM DATE: 07/18/2019 04:18 PM. CLINICAL HISTORY: Dyspnea. Low oxygen saturation. COMPARISON: CHEST 1 VIEW 07/11/2019 1:02 AM. TECHNIQUE: Upright AP view. FINDINGS: Lungs/Pleura: As before, there appears to be mild bilateral pulmonary vascular congestion. There is no lobar consolidation or peripheral interstitial abnormality. There is no pneumothorax or gross pleural fluid. Mediastinum: Mild cardiomegaly, as before. Mild aortic arch calcification. Other: Surgical clips in the left axilla, as before. IMPRESSION: Mild cardiomegaly and mild bilateral pulmonary vascular congestion suggesting CHF, as before. RADIA
[2019-07-18 16:33] LABS: BASOPHILS # (AUTO) 0.1 10^3/uL (0.0-0.1); BASOPHILS % (AUTO) 0.4 %; EOSINOPHILS % (AUTO) 0.3 %; HGB - HEMOGLOBIN 11.1 g/dL (12.0-16.0); LYMPHOCYTES # (AUTO) 0.7 10^3/uL (1.5-3.5); LYMPHOCYTES % (AUTO) 4.7 %; MEAN CORPUSCULAR HEMOGLOBIN 31.7 pg (27.0-31.0); MEAN CORPUSCULAR HGB CONC 30.3 g/dL (32.0-36.0); MEAN CORPUSCULAR VOLUME 104.6 fL (81.0-99.0); MEAN PLATELET VOLUME 9.6 fL (7.9-10.8); MONOCYTES # (AUTO) 0.8 10^3/uL (0.0-1.0); NEUTROPHILS # (AUTO) 14.2 10^3/uL (1.5-6.6); NEUTROPHILS % (AUTO) 88.8 %; PLT - PLATELET COUNT 241 10^3/uL (130-450); RED CELL DISTRIBUTION WIDTH 15.3 % (12.0-15.0); WHITE BLOOD COUNT 15.9 x10^3/uL (4.8-10.8)
[2019-07-18 16:45] LABS: INR 1.1 (0.8-1.2); PT - PROTHROMBIN TIME 12.9 secs (9.9-12.6)
[2019-07-18 16:48] LABS: ALBUMIN 3.5 g/dL (3.2-5.5); ALBUMIN/GLOBULIN RATIO 1.3 (1.0-2.2); BILIRUBIN,TOTAL 0.5 mg/dL (0.2-1.0); CALCIUM 8.8 mg/dL (8.5-10.3); CREATININE 2.3 mg/dL (0.4-1.0); TOTAL PROTEIN 6.3 g/dL (6.7-8.2)
[2019-07-18] MEDS ORDERED: CEFEPIME 2 GM in SODIUM CHLORIDE 0.9% MINIBAG 100 ML IV STA (16:48)
[2019-07-18] MEDS ORDERED: VANCOMYCIN INJ 1.5 GM in SODIUM CHLORIDE 0.9% 500 ML IV STA (16:48)
[2019-07-18] MEDS ORDERED: SODIUM CHLORIDE 0.9% 500 ML IV ONE ×2 (16:58→17:53)
--- NOTE | 2019-07-18 17:08 | XRAY Report ---
Reason: Post intubation and right IJ central line Procedure Date: 07/18/2019 Accession Number: [id number] / [id number] Procedure: XR - Chest for Line Placement CPT Code: Final Report FULL RESULT: EXAM: CHEST RADIOGRAPHY EXAM DATE: 07/18/2019 04:57 PM. CLINICAL HISTORY: Post intubation and right IJ central line. COMPARISON: 07/18/2019 4:03 PM. TECHNIQUE: Upright AP view. The patient is rotated toward the left. FINDINGS: Lungs/Pleura: An endotracheal tube is now present with its tip 1 cm above the maria guadalupe. Bilateral pulmonary vascular congestion, as before. No focal consolidation. No peripheral interstitial abnormality. No pneumothorax or gross pleural fluid. Mediastinum: Mild cardiomegaly, as before. Mild aortic arch calcification. New right IJ catheter with its tip in the mid right atrium 3 cm below the superior cavoatrial junction. Other: None. IMPRESSION: 1. Endotracheal tube 1 cm above the maria guadalupe. 2. Right IJ catheter with its tip in the mid right atrium. 3. Mild cardiomegaly and bilateral pulmonary vascular congestion consistent with CHF, as before. 4. No pneumothorax. RADIA
[2019-07-18 17:55] LABS: VBG BASE EXCESS 3.1 mmol/L (-2 - +2); VBG PCO2 48.9 mmHg (41-51); VBG PH 7.387 (7.31-7.41); VBG PO2 52.9 mmHg (25-47); VBG TOTAL CO2 30.2 mmol/L (24-29)
[2019-07-18 19:09] VITALS: BP 173/79
== END 2019-07-18 18:47 | disposition short-term general hospital (02) ==
LOC: EDUNIT# → ED 16:07
DX: A41.9 Sepsis, unspecified organism (principal); R65.21 Severe sepsis with septic shock; J96.00 Acute respiratory failure, unspecified whether with hypoxia or hypercapnia; I13.2 Hypertensive heart and chronic kidney disease with heart failure and with stage 5 chronic kidney disease, or end stage renal disease; N18.6 End stage renal disease; I50.9 Heart failure, unspecified; Z99.2 Dependence on renal dialysis; J44.9 Chronic obstructive pulmonary disease, unspecified; I25.10 Atherosclerotic heart disease of native coronary artery without angina pectoris; Z95.5 Presence of coronary angioplasty implant and graft; Z79.82 Long term (current) use of aspirin
CPT/HCPCS: 31500; 36415; 36556; 71045; 80053; 82803; 83605; 83690; 83880; 84484; 85025; 85610; 85730; 87040; 87275; 87276; 93005; 96361; 96365; 96367; 96375; 99291; A9270; J0330; J3370; 81599

== ENCOUNTER 2019-07-18 18:51 | Outpatient (CLI) | payer MEDICARE, MEDICAID | END 2019-07-18 18:52 | disposition short-term general hospital (02) | LOC: EMS 18:51 | PROVIDERS: ATTEND Surgery | DX: J96.90 Respiratory failure, unspecified, unspecified whether with hypoxia or hypercapnia (principal); N18.6 End stage renal disease; R50.9 Fever, unspecified; Z99.2 Dependence on renal dialysis | CPT/HCPCS: A0425; A0426 ==

== ENCOUNTER 2019-10-03 05:33 | Outpatient (CLI) | payer MEDICARE, MEDICAID | END 2019-10-03 05:34 | disposition critical access hospital (66) | LOC: EMS 05:33 | PROVIDERS: ATTEND Surgery | DX: R06.02 Shortness of breath (principal); R50.9 Fever, unspecified | CPT/HCPCS: A0425; A0429 ==

== ENCOUNTER 2019-10-03 05:56 | Emergency (ER) | payer MEDICARE, MEDICAID ==
[2019-10-03] MEDS ORDERED: cefTRIAXone 1 GM in SODIUM CHLORIDE 0.9% MINIBAG 100 ML IV STA (06:14)
[2019-10-03] MEDS ORDERED: ACETAMINOPHEN 1,000 MG/100 ML 100 ML IV STA (06:14)
--- NOTE | 2019-10-03 06:20 | ED Physician Documentation ---
<Roberta Huang - Last Filed: 10/03/19 08:34> History of Present Illness - Stated complaint Stated Complaint: SOA, COUGH PD PAST MEDICAL HISTORY - Present Medications Home Medications: Ambulatory Orders Medication Instructions Recorded Confirmed Aspirin [Aspir-Low] 81 mg PO QPM 02/19/16 12/31/18 Sertraline [Zoloft] 100 mg PO DAILY 02/19/16 12/31/18 Gabapentin 300 mg PO TID 10/22/16 12/31/18 Pantoprazole [Protonix] 40 mg PO QDAC 10/22/16 12/31/18 allopurinoL [Allopurinol] 100 mg PO DAILY 10/22/16 12/31/18 Magnesium Oxide [Mag Ox] 400 mg PO DAILY 08/15/17 12/31/18 Temazepam [Restoril] 15 mg PO QPM PRN capsule 08/17/17 12/31/18 Atorvastatin [Lipitor] 1 tab PO DAILY 09/26/18 12/31/18 Cinacalcet HCl [Sensipar] 30 mg PO DAILY 09/26/18 12/31/18 Metoprolol Succinate 100 mg PO DAILY 09/26/18 12/31/18 Albuterol Sulfate [Albuterol 2 puffs IH QID #1 hfa.aer.ad 07/11/19 Sulfate Hfa] Oxycodone HCl/Acetaminophen 1 each PO QID PRN #16 tablet 07/11/19 [Percocet 10-325 mg Tablet] Oxycodone HCl/Acetaminophen 1 tab PRN 07/11/19 [Percocet 10-325 mg Tablet] dexAMETHasone [Decadron] 4 mg PO DAILY #7 tablet 07/11/19 - Allergies Allergies/Adverse Reactions: Allergies Allergy/AdvReac Type Severity Reaction Status Date / Time Iodinated Contrast Media Allergy Rash Verified 03/24/19 11:38 mushroom Allergy Anaphylaxis Verified 03/24/19 11:38 Penicillins Allergy Hives Verified 03/24/19 11:38 povidone-iodine Allergy Rash Verified 03/24/19 11:38 [From Betadine] soap * [From Betadine] Allergy Rash Verified 03/24/19 11:38 Sulfa (Sulfonamide Allergy Rash Verified 03/24/19 11:38 Antibiotics) Procedures - Intubation Provider: Emergency physician (Intubation was performed by Dr. Dailey prior to my assuming care. The endotracheal tube was in the right mainstem bronchus and have asked the respiratory therapist to pull it back 4 cm.) Tube: Size-enter number PD MEDICAL DECISION MAKING - ED course Complexity details: reviewed old records, reviewed results ED course: Care of this patient was turned over made by Dr. Dailey. She is a known dialysis patient with a history of non-STEMI and congestive heart failure and A. fib. She presented unresponsive and febrile with a temp of 39.5. Apparently pulse oximetry was 58% on arrival of EMS at the home. She did improve with oxygenation here but her PCO2 was in the 50s and her chest x-ray shows clear bilateral pulmonary infiltrates and she was febrile. She was reportedly unresponsive and was intubated prior to my assuming care. Labs are concerning with a BNP over 1900. Her troponin is 22. Influenza and RSV screens are pending [place] at 18 is also pending. Endotracheal tube was in the right mainstem bronchus so of asked the respiratory therapist to pull it back. ABGs have been ordered. She is sedated with propofol and also I have ordered Versed titrated for any additional sedation needs. Patient clearly needs dialysis which we cannot provide at this facility I have spoken to the outboard motorboat operator at [facility] and they have agreed accept the patient in transfer we are waiting a bed at this time. - Critical Care Data interpretation: ABG Procedures included in critical care time: Ventilator mgmt Procedures excluded from critical care time: Intubation Departure - Departure Disposition: 02 Transfer Acute Care Hosp Clinical Impression: Respiratory distress Renal failure Qualifiers: Renal failure chronicity: unspecified chronicity Qualified Code(s): N19 - Unspecified kidney failure CHF (congestive heart failure) Qualifiers: Heart failure type: unspecified Heart failure chronicity: unspecified Qualified Code(s): I50.9 - Heart failure, unspecified Respiratory failure Qualifiers: Chronicity: unspecified Respiratory failure complication: unspecified whether with hypoxia or hypercapnia Qualified Code(s): J96.90 - Respiratory failure, unspecified, unspecified whether with hypoxia or hypercapnia Condition: Critical Discharge Date/Time: 10/03/19 08:40 <Luis Miguel Dailey - Last Filed: 10/18/19 19:24> History of Present Illness - History obtained from History obtained from: EMS (history is obtained from nurse who obtained from h istory from EMS, apparently the patient is a dialysis patient and her sister found her confused and mumbling, on arrival the patient is hypoxic and has a fever, patient placed on face mask and sats improved to 94%.) Review of Systems Unable to obtain: AMS PD PAST MEDICAL HISTORY - Past Medical History Cardiovascular: Atrial fibrillation, Coronary artery disease, Congestive heart failure, Hypertension Respiratory: CPAP use, Shortness of breath, Sleep apnea, COPD Endocrine/Autoimmune: Other GI: GERD, Crohn's disease, Ulcers : Dialysis, Renal insuffiency, Frequency HEENT: Macular degeneration Psych: Depression, Anxiety Musculoskeletal: Chronic back pain, Fatigue Derm: None - Past Surgical History Past Surgical History: Yes General: Cholecystectomy, Appendectomy Ortho: Knee replacement, Hip replacement /[employer]AMES: Hysterectomy Cardiovascular: Coronary stent, Cardiac catheterization HEENT: Cataracts, Tonsil/Adenoidectomy - Social History Does the pt smoke?: No Smoking Status: Never smoker Does the pt drink ETOH?: No Does the pt have substance abuse?: No - Immunizations Immunizations are current?: Yes - POLST Patient has POLST: No POLST Status: Full Code PD ED PE NORMAL - Vitals Vital signs reviewed: Yes - General General: Well developed/nourished (no signs of trauma, she is ill appearing, febrile to touch, will mumble and will respond to voice. ) - HEENT HEENT: Atraumatic, PERRL, Pharynx benign - Neck Neck: Supple, no meningeal sign - Cardiac Cardiac: RRR, No murmur, Strong equal pulses - Respiratory Respiratory: Other (trachea midline, diffuse adventitious lung sounds in bilateral lung alonso, crackles and wheezing throughout. ) - Abdomen Abdomen: Normal bowel sounds, Soft, Non tender, Non distended - Derm Derm: Warm and dry - Extremities Extremities: No deformity - Neuro Neuro: Other (will mumble will respond to voice, no facial droop, moves all extremities to pain, crossed the midline, no unilateral weakness.) - Psych Psych: Normal mood, Normal affect Results - Vitals Vitals: Oxygen O2 Source Mechanical ventilator Oxygen Flow Rate 15 - EKG (time done) 06:30 Rate: Other (no stemi) - Labs Labs: Microbiology 10/03/19 06:54 Blood Culture - Final Blood Staphylococcus Darci Ssp.hominis 10/03/19 08:45 Urine Culture - Final Urine,Catheterized Escherichia Coli Enterococcus Faecium Laboratory Tests 10/03/19 10/03/19 10/03/19 06:20 06:54 06:54 WBC 6.6 RBC 3.28 L Hgb 10.4 L Hct 34.1 L MCV 104.0 H MCH 31.7 H MCHC 30.5 L RDW 15.9 H Plt Count 148 MPV 10.0 Neut # (Auto) 6.1 Lymph # (Auto) 0.2 L [place] # (Auto) 0.3 Eos # (Auto) 0.0 Baso # (Auto) 0.0 Absolute Nucleated RBC 0.00 Nucleated RBC % 0.0 PT 12.7 H INR 1.1 APTT 26.3 Bld Gas Analysis Time 0628 Sample Site RIGHT RADIAL ABG pH 7.35 ABG pCO2 52 H ABG pO2 71 L ABG HCO3 28.4 H ABG Total CO2 30.0 H ABG O2 Saturation 94 ABG Base Excess 2.1 Harjeet Test POSITIVE O2 Delivery Device NON REBREATHER MASK FiO2 15.00 Sodium Potassium Chloride Carbon Dioxide Anion Gap BUN Creatinine Estimated GFR (MDRD) Glucose Lactic Acid Calcium Phosphorus Magnesium Total Bilirubin Direct Bilirubin AST ALT Alkaline Phosphatase Ammonia Troponin I High Sens B-Natriuretic Peptide Total Protein Albumin Globulin Lipase TSH Urine Color Urine Clarity Urine pH Ur Specific [place] Urine Protein Urine Glucose (UA) Urine Ketones Urine Occult Blood Urine Nitrite Urine Bilirubin Urine Urobilinogen Ur Leukocyte Esterase Urine RBC Urine WBC Ur Squamous Epith Cells Urine Bacteria Urine Casts Ur Microscopic Review Urine Culture Comments Salicylates Urine Opiates Screen Ur Oxycodone Screen Urine Methadone Screen Ur Propoxyphene Screen Acetaminophen Ur Barbiturates Screen Ur Tricyclics Screen Ur Phencyclidine Scrn Ur Amphetamine Screen U Methamphetamines Scrn U Benzodiazepines Scrn Urine Cocaine Screen U Cannabinoids Screen Ethyl Alcohol Influenza A (Rapid) Influenza B (Rapid) RSV Rapid Ref Lab Test Result 10/03/19 10/03/19 10/03/19 06:54 06:54 06:54 WBC RBC Hgb Hct MCV MCH MCHC RDW Plt Count MPV Neut # (Auto) Lymph # (Auto) [place] # (Auto) Eos # (Auto) Baso # (Auto) Absolute Nucleated RBC Nucleated RBC % PT INR APTT Bld Gas Analysis Time Sample Site ABG pH ABG pCO2 ABG pO2 ABG HCO3 ABG Total CO2 ABG O2 Saturation ABG Base Excess Harjeet Test O2 Delivery Device FiO2 Sodium 133 L Potassium 4.1 Chloride 94 L Carbon Dioxide 28 Anion Gap 11.0 BUN 34 H Creatinine 4.0 H Estimated GFR (MDRD) 11 L Glucose 103 H Lactic Acid 1.6 Calcium 8.3 L Phosphorus 4.4 Magnesium 1.5 L Total Bilirubin 0.9 Direct Bilirubin 0.2 AST 17 ALT 10 Alkaline Phosphatase 82 Ammonia Troponin I High Sens B-Natriuretic Peptide 1915 H Total Protein 5.7 L Albumin 3.1 L Globulin 2.6 Lipase 24 TSH Urine Color Urine Clarity Urine pH Ur Specific [place] Urine Protein Urine Glucose (UA) Urine Ketones Urine Occult Blood Urine Nitrite Urine Bilirubin Urine Urobilinogen Ur Leukocyte Esterase Urine RBC Urine WBC Ur Squamous Epith Cells Urine Bacteria Urine Casts Ur Microscopic Review Urine Culture Comments Salicylates < 6.0 Urine Opiates Screen Ur Oxycodone Screen Urine Methadone Screen Ur Propoxyphene Screen Acetaminophen < 10 L Ur Barbiturates Screen Ur Tricyclics Screen Ur Phencyclidine Scrn Ur Amphetamine Screen U Methamphetamines Scrn U Benzodiazepines Scrn Urine Cocaine Screen U Cannabinoids Screen Ethyl Alcohol < 5.0 Influenza A (Rapid) Influenza B (Rapid) RSV Rapid Ref Lab Test Result 10/03/19 10/03/19 10/03/19 06:54 06:54 06:54 WBC RBC Hgb Hct MCV MCH MCHC RDW Plt Count MPV Neut # (Auto) Lymph # (Auto) [place] # (Auto) Eos # (Auto) Baso # (Auto) Absolute Nucleated RBC Nucleated RBC % PT INR APTT Bld Gas Analysis Time Sample Site ABG pH ABG pCO2 ABG pO2 ABG HCO3 ABG Total CO2 ABG O2 Saturation ABG Base Excess Harjeet Test O2 Delivery Device FiO2 Sodium Potassium Chloride Carbon Dioxide Anion Gap BUN Creatinine Estimated GFR (MDRD) Glucose Lactic Acid Calcium Phosphorus Magnesium Total Bilirubin Direct Bilirubin AST ALT Alkaline Phosphatase Ammonia 41.8 H Troponin I High Sens B-Natriuretic Peptide Total Protein Albumin Globulin Lipase TSH 0.23 L Urine Color Urine Clarity Urine pH Ur Specific [place] Urine Protein Urine Glucose (UA) Urine Ketones Urine Occult Blood Urine Nitrite Urine Bilirubin Urine Urobilinogen Ur Leukocyte Esterase Urine RBC Urine WBC Ur Squamous Epith Cells Urine Bacteria Urine Casts Ur Microscopic Review Urine Culture Comments Salicylates Urine Opiates Screen Ur Oxycodone Screen Urine Methadone Screen Ur Propoxyphene Screen Acetaminophen Ur Barbiturates Screen Ur Tricyclics Screen Ur Phencyclidine Scrn Ur Amphetamine Screen U Methamphetamines Scrn U Benzodiazepines Scrn Urine Cocaine Screen U Cannabinoids Screen Ethyl Alcohol Influenza A (Rapid) Influenza B (Rapid) RSV Rapid Negative Ref Lab Test Result 10/03/19 10/03/19 10/03/19 06:54 07:35 08:20 WBC RBC Hgb Hct MCV MCH MCHC RDW Plt Count MPV Neut # (Auto) Lymph # (Auto) [place] # (Auto) Eos # (Auto) Baso # (Auto) Absolute Nucleated RBC Nucleated RBC % PT INR APTT Bld Gas Analysis Time Sample Site ABG pH ABG pCO2 ABG pO2 ABG HCO3 ABG Total CO2 ABG O2 Saturation ABG Base Excess Harjeet Test O2 Delivery Device FiO2 Sodium Potassium Chloride Carbon Dioxide Anion Gap BUN Creatinine Estimated GFR (MDRD) Glucose Lactic Acid Calcium Phosphorus Magnesium Total Bilirubin Direct Bilirubin AST ALT Alkaline Phosphatase Ammonia Troponin I High Sens 22.2 H* B-Natriuretic Peptide Total Protein Albumin Globulin Lipase TSH Urine Color Urine Clarity Urine pH Ur Specific [place] Urine Protein Urine Glucose (UA) Urine Ketones Urine Occult Blood Urine Nitrite Urine Bilirubin Urine Urobilinogen Ur Leukocyte Esterase Urine RBC Urine WBC Ur Squamous Epith Cells Urine Bacteria Urine Casts Ur Microscopic Review Urine Culture Comments Salicylates Urine Opiates Screen Ur Oxycodone Screen Urine Methadone Screen Ur Propoxyphene Screen Acetaminophen Ur Barbiturates Screen Ur Tricyclics Screen Ur Phencyclidine Scrn Ur Amphetamine Screen U Methamphetamines Scrn U Benzodiazepines Scrn Urine Cocaine Screen U Cannabinoids Screen Ethyl Alcohol Influenza A (Rapid) Negative Influenza B (Rapid) Negative RSV Rapid Ref Lab Test Result REPORT 10/03/19 08:45 WBC RBC Hgb Hct MCV MCH MCHC RDW Plt Count MPV Neut # (Auto) Lymph # (Auto) [place] # (Auto) Eos # (Auto) Baso # (Auto) Absolute Nucleated RBC Nucleated RBC % PT INR APTT Bld Gas Analysis Time Sample Site ABG pH ABG pCO2 ABG pO2 ABG HCO3 ABG Total CO2 ABG O2 Saturation ABG Base Excess Harjeet Test O2 Delivery Device FiO2 Sodium Potassium Chloride Carbon Dioxide Anion Gap BUN Creatinine Estimated GFR (MDRD) Glucose Lactic Acid Calcium Phosphorus Magnesium Total Bilirubin Direct Bilirubin AST ALT Alkaline Phosphatase Ammonia Troponin I High Sens B-Natriuretic Peptide Total Protein Albumin Globulin Lipase TSH Urine Color DARK YELLOW Urine Clarity HAZY Urine pH 5.5 Ur Specific [place] 1.015 Urine Protein NEGATIVE Urine Glucose (UA) NEGATIVE Urine Ketones NEGATIVE Urine Occult Blood NEGATIVE Urine Nitrite NEGATIVE Urine Bilirubin NEGATIVE Urine Urobilinogen 0.2 (NORMAL) Ur Leukocyte Esterase SMALL H Urine RBC 0-5 Urine WBC 11-25 H Ur Squamous Epith Cells FEW Squamous Urine Bacteria Moderate H Urine Casts 0-2 Hyaline Casts Ur Microscopic Review INDICATED Urine Culture Comments INDICATED Salicylates Urine Opiates Screen NEGATIVE Ur Oxycodone Screen POSITIVE H Urine Methadone Screen NEGATIVE Ur Propoxyphene Screen NEGATIVE Acetaminophen Ur Barbiturates Screen NEGATIVE Ur Tricyclics Screen NEGATIVE Ur Phencyclidine Scrn NEGATIVE Ur Amphetamine Screen NEGATIVE U Methamphetamines Scrn NEGATIVE U Benzodiazepines Scrn POSITIVE H Urine Cocaine Screen NEGATIVE U Cannabinoids Screen NEGATIVE Ethyl Alcohol Influenza A (Rapid) Influenza B (Rapid) RSV Rapid Ref Lab Test Result Procedures - Intubation Provider: Anesthesia Medications: Etomidate, Rocuronium Blade: Glidescope Tube: Size-enter number (8.0), Cuffed, Marked at lips-enter cm (24 cm) Route: Oral Confirmation: Direct visualization, Bilateral breath sounds, No abdominal breath sound, End tidal CO2, Pulse ox, Chest xray Complications: No compications PD MEDICAL DECISION MAKING - ED course Complexity details: considered differential (sepsis, PNA, pulm edema, PE, ARDS, Flu, covid. ), other (patient signed out at shift change to dr. roberta huang) - Critical Care Time(min): 74 Time Includes: Direct patient care, Review records, Reassess patient, Document care, Coordinate care, Medical consult Data interpretation: Labs, Pulse ox, CXR Procedures included in critical care time: Peripheral IV
[2019-10-03 06:32] LABS: ABG BASE EXCESS 2.1 mmol/L (-2.0-3.0); ABG HCO3 28.4 mmol/L (22.0-26.0); ABG OXYGEN SATURATION 94 % (94-98); ABG PCO2 52 mmHg (34-45); ABG PH 7.35 (7.35-7.45); ABG PO2 71 mmHg (80-100); ALLEN TEST POSITIVE
--- NOTE | 2019-10-03 06:59 | XRAY Report ---
Reason: sob Procedure Date: 10/03/2019 Accession Number: [id number] / [id number] Procedure: XR - Chest 1 View X-Ray CPT Code: 64718 Final Report FULL RESULT: EXAM: CHEST RADIOGRAPHY EXAM DATE: 10/03/2019 06:31 AM. CLINICAL HISTORY: Sob. COMPARISON: CHEST FOR LINE PLACEMENT 07/18/2019 4:40 PM. TECHNIQUE: 1 view. FINDINGS: Lungs/Pleura: Left worse than right patchy infiltrates. No effusion or pneumothorax. Mediastinum: Cardiomegaly. Other: None. IMPRESSION: Bilateral infiltrates, left worse than right. RADIA
[2019-10-03 07:03] LABS: BASOPHILS % (AUTO) 0.6 %; EOSINOPHILS % (AUTO) 0.3 %; HGB - HEMOGLOBIN 10.4 g/dL (12.0-16.0); LYMPHOCYTES # (AUTO) 0.2 10^3/uL (1.5-3.5); LYMPHOCYTES % (AUTO) 2.6 %; MEAN CORPUSCULAR HEMOGLOBIN 31.7 pg (27.0-31.0); MEAN CORPUSCULAR HGB CONC 30.5 g/dL (32.0-36.0); MONOCYTES # (AUTO) 0.3 10^3/uL (0.0-1.0); MONOCYTES % (AUTO) 4.2 %; NEUTROPHILS # (AUTO) 6.1 10^3/uL (1.5-6.6); PLT - PLATELET COUNT 148 10^3/uL (130-450); RED BLOOD COUNT 3.28 10^6/uL (4.20-5.40); RED CELL DISTRIBUTION WIDTH 15.9 % (12.0-15.0); WHITE BLOOD COUNT 6.6 x10^3/uL (4.8-10.8)
[2019-10-03] MEDS ORDERED: ETOMIDATE 40 MG/20 ML VIAL IVP ONE (07:05)
[2019-10-03] MEDS ORDERED: KETAMINE 500 MG/10 ML VIAL ONE (07:05)
[2019-10-03] MEDS ORDERED: PROPOFOL 1000 MG/100 ML 100 ML IV ONE (07:05)
[2019-10-03] MEDS ORDERED: MIDAZOLAM 2 MG/2 ML VIAL ONE (07:05)
[2019-10-03] MEDS ORDERED: PROPOFOL 200 MG/20 ML VIAL IVP ONE (07:06)
[2019-10-03] MEDS ORDERED: ROCURONIUM 50 MG/5 ML VIAL IVP ONE ×2 (07:07→07:11)
[2019-10-03 07:20] LABS: INR 1.1 (0.8-1.2); PT - PROTHROMBIN TIME 12.7 secs (9.9-12.6)
[2019-10-03 07:27] LABS: PARTIAL THROMBOPLASTIN TIME 26.3 secs (24.9-33.3)
[2019-10-03 07:29] LABS: ACETAMINOPHEN < 10 ug/mL (10-30); ALBUMIN 3.1 g/dL (3.2-5.5); ALKALINE PHOSPHATASE 82 IU/L (42-121); ALT ALANINE AMINOTRANSFERASE 10 IU/L (10-60); AST ASPARTATE AMINOTRANSFERASE 17 IU/L (10-42); BILIRUBIN,DIRECT 0.2 mg/dL (0.1-0.5); BILIRUBIN,TOTAL 0.9 mg/dL (0.2-1.0); BUN - BLOOD UREA NITROGEN 34 mg/dL (6-20); CALCIUM 8.3 mg/dL (8.5-10.3); CARBON DIOXIDE - CO2 28 mmol/L (21-32); CHLORIDE 94 mmol/L (101-111); GLUCOSE 103 mg/dL (70-100); LIPASE 24 U/L (22-51); MAGNESIUM 1.5 mg/dL (1.7-2.8); PHOSPHORUS 4.4 mg/dL (2.5-4.6); SALICYLATE < 6.0 mg/dL; SODIUM 133 mmol/L (135-145); TOTAL PROTEIN 5.7 g/dL (6.7-8.2)
[2019-10-03] MEDS ORDERED: LORazepam 2 MG/ML VIAL IVP STA (07:48)
--- NOTE | 2019-10-03 07:56 | XRAY Report ---
Reason: POST ET TUBE Procedure Date: 10/03/2019 Accession Number: [id number] / [id number] Procedure: XR - Post ET Tube 1V CXR CPT Code: 43728 Final Report FULL RESULT: EXAM: CHEST RADIOGRAPHY EXAM DATE: 10/03/2019 07:49 AM. CLINICAL HISTORY: POST ET TUBE. COMPARISON: CHEST 1 VIEW 10/03/2019 6:07 AM. TECHNIQUE: Portable upright view of the chest taken 0723 hrs. 10/03/2019. FINDINGS: Lungs/Pleura: Diffuse left lung patchy infiltrate. Consolidation at the left lung base. Elevation left hemidiaphragm. Endotracheal tube proximal right mainstem bronchus. Mediastinum: Mild cardiac enlargement. Other: None. IMPRESSION: Interval intubation with the endotracheal tube tip proximal right mainstem bronchus. RADIA
[2019-10-03] MEDS ORDERED: ACETAMINOPHEN 650 MG SUPP PR STA (08:04)
[2019-10-03 08:31] LABS: RESPIRATORY SYNCYTIAL VIRUS Negative (Negative)
[2019-10-03] MEDS ORDERED: PROPOFOL 1000 MG/100 ML 100 ML IV STA (08:50)
[2019-10-03] MEDS ORDERED: ETOMIDATE 40 MG/20 ML VIAL IVP STA (08:50)
[2019-10-03] MEDS ORDERED: SODIUM CHLORIDE 0.9% 1,000 ML IV ONE (08:50)
[2019-10-03] MEDS ORDERED: ROCURONIUM 50 MG/5 ML VIAL IVP STA (08:59)
[2019-10-03 09:04] VITALS: BP 109/52
[2019-10-03 09:09] LABS: MUDS CUTOFF CONCENTRATIONS CUTOFF CONC BELOW:
[2019-10-03 09:13] LABS: BILIRUBIN,URINE NEGATIVE (NEGATIVE); GLUCOSE, URINE (UA) NEGATIVE (NEGATIVE); KETONES,URINE (UA) NEGATIVE (NEGATIVE); LEUKOCYTE ESTERASE, URINE SMALL (NEGATIVE); NITRITE,URINE NEGATIVE (NEGATIVE); OCCULT BLOOD,URINE NEGATIVE (NEGATIVE); PH,URINE 5.5 PH (5.0-7.5); PROTEIN,URINE NEGATIVE (NEGATIVE); UROBILINOGEN,URINE 0.2 (NORMAL) E.U./dL (NORMAL)
[2019-10-03 09:17] LABS: CLARITY,URINE HAZY (CLEAR)
[2019-10-03 09:22] LABS: BENZODIAZEPINES SCREEN, URINE POSITIVE (NEGATIVE); OXYCODONE SCREEN, URINE POSITIVE (NEGATIVE)
[2019-10-03 09:23] LABS: AMPHETAMINE SCREEN,URINE NEGATIVE (NEGATIVE); COCAINE SCREEN URINE NEGATIVE (NEGATIVE); METHADONE SCREEN, URINE NEGATIVE (NEGATIVE); METHAMPHETAMINES SCREEN, URINE NEGATIVE (NEGATIVE); OPIATE SCREEN, URINE NEGATIVE (NEGATIVE); PROPOXYPHENE SCREEN, URINE NEGATIVE (NEGATIVE); TRICYCLIC ANTIDEPRESSANT,URINE NEGATIVE (NEGATIVE)
[2019-10-03 09:42] LABS: BACTERIA,URINE Moderate /HPF (None Seen); CASTS, URINE 0-2 Hyaline Casts /LPF; RBC,URINE 0-5 /HPF (0-5); SQUAMOUS EPITHELIAL CELL,UR FEW Squamous (<= Few)
== END 2019-10-03 08:40 | disposition short-term general hospital (02) ==
LOC: EDUNIT# → ED 05:56
DX: R06.03 Acute respiratory distress (principal); I13.2 Hypertensive heart and chronic kidney disease with heart failure and with stage 5 chronic kidney disease, or end stage renal disease; N18.6 End stage renal disease; I50.9 Heart failure, unspecified; Z99.2 Dependence on renal dialysis
CPT/HCPCS: 31500; 36415; 36600; 71045; 80048; 80076; 81001; 82140; 82803; 83605; 83690; 83735; 83880; 84100; 84443; 84484; 85025; 85610; 85730; 87040; 87077; 87086; 87181; 87275; 87276; 87280; 93005; 96374; 96375; 99291; J0131; U0002; 80306; 80307; 80320; 80329; 81003; 81599; 82553

== ENCOUNTER 2019-12-07 20:00 | Outpatient (CLI) | payer MEDICARE, MEDICAID | END 2019-12-07 20:01 | disposition critical access hospital (66) | LOC: EMS 20:00 | PROVIDERS: ATTEND Surgery | DX: R06.02 Shortness of breath (principal) | CPT/HCPCS: A0425; A0429 ==

== ENCOUNTER 2019-12-07 20:19 | Emergency (ER) | payer MEDICARE, MEDICAID ==
--- NOTE | 2019-12-07 20:32 | ED Physician Documentation ---
PD HPI DYSPNEA - Stated complaint Stated Complaint: DIFF BREATHING - History obtained from History obtained from: Patient (69-year-old woman with history of dialysis dependence presents by ambulance because she was reportedly somnolent at dialysis today. This was subsequent to taking a Flexeril. And then she got anxious when they woke her up. They did complete dialysis.) Review of Systems Ten Systems: 10 systems reviewed and negative Constitutional: reports: Reviewed and negative Nose: reports: Reviewed and negative Cardiac: reports: Reviewed and negative PD PAST MEDICAL HISTORY - Present Medications Home Medications: Ambulatory Orders Medication Instructions Recorded Confirmed Aspirin [Aspir-Low] 81 mg PO QPM 02/19/16 12/31/18 Sertraline [Zoloft] 100 mg PO DAILY 02/19/16 12/31/18 Gabapentin 300 mg PO TID 10/22/16 12/31/18 Pantoprazole [Protonix] 40 mg PO QDAC 10/22/16 12/31/18 allopurinoL [Allopurinol] 100 mg PO DAILY 10/22/16 12/31/18 Magnesium Oxide [Mag Ox] 400 mg PO DAILY 08/15/17 12/31/18 Temazepam [Restoril] 15 mg PO QPM PRN capsule 08/17/17 12/31/18 Atorvastatin [Lipitor] 1 tab PO DAILY 09/26/18 12/31/18 Cinacalcet HCl [Sensipar] 30 mg PO DAILY 09/26/18 12/31/18 Metoprolol Succinate 100 mg PO DAILY 09/26/18 12/31/18 Albuterol Sulfate [Albuterol 2 puffs IH QID #1 hfa.aer.ad 07/11/19 Sulfate Hfa] Oxycodone HCl/Acetaminophen 1 each PO QID PRN #16 tablet 07/11/19 [Percocet 10-325 mg Tablet] Oxycodone HCl/Acetaminophen 1 tab PRN 07/11/19 [Percocet 10-325 mg Tablet] dexAMETHasone [Decadron] 4 mg PO DAILY #7 tablet 07/11/19 - Allergies Allergies/Adverse Reactions: Allergies Allergy/AdvReac Type Severity Reaction Status Date / Time Iodinated Contrast Media Allergy Rash Verified 03/24/19 11:38 mushroom Allergy Anaphylaxis Verified 03/24/19 11:38 Penicillins Allergy Hives Verified 03/24/19 11:38 povidone-iodine Allergy Rash Verified 03/24/19 11:38 [From Betadine] soap * [From Betadine] Allergy Rash Verified 03/24/19 11:38 Sulfa (Sulfonamide Allergy Rash Verified 03/24/19 11:38 Antibiotics) PD ED PE NORMAL - Vitals Vital signs reviewed: Yes - General General: Alert and oriented X 3, Other (tardive dyskinesia) - HEENT HEENT: PERRL, EOMI - Cardiac Cardiac: RRR, No murmur - Respiratory Respiratory: No respiratory distress, Clear bilaterally - Abdomen Abdomen: Non tender - Extremities Extremities: No calf tenderness / cord, Other (Minimal pedal edema) - Neuro Neuro: Alert and oriented X 3, Normal speech Results - Vitals Vitals: Vital Signs - 24 hr 12/07/19 12/07/19 20:34 20:37 Temperature 36.8 C Heart Rate 68 58 L Respiratory 16 18 Rate Blood Pressure 115/86 H 159/104 H O2 Saturation 96 99 Oxygen O2 Source Room air - EKG (time done) 2039 Rate: Rate (enter#) (61) Rhythm: NSR [place]: Normal Intervals: Normal [place] QRS: Normal Ischemia: Normal ST segments Computer interpretation: Agree with computer - Labs Labs: Laboratory Tests 12/07/19 20:47 Sodium 133 L Potassium 3.5 Chloride 92 L Carbon Dioxide 28 Anion Gap 13.0 BUN 19 Creatinine 2.4 H Estimated GFR (MDRD) 20 L Glucose 85 Calcium 8.6 PD MEDICAL DECISION MAKING - ED course ED course: 69-year-old woman presents after dialysis having dyspnea and somnolence after taking someone else's Flexeril. Her examination is relatively unremarkable and her chest x-ray is clear. Departure - Departure Disposition: 01 Home, Self Care Clinical Impression: Dyspnea Condition: Good Record reviewed to determine appropriate education?: Yes Instructions: ED Dyspnea Shortness of Breath Comments: Please note that is illegal to take other peoples' prescription medications. Follow-up with your primary care physician, return if worse. Continue dialysis as per your routine.
[2019-12-07 21:02] LABS: CALCIUM 8.6 mg/dL (8.5-10.3); CREATININE 2.4 mg/dL (0.4-1.0)
[2019-12-07 22:27] VITALS: BP 90/68
== END 2019-12-07 22:28 | disposition home or self-care (01) ==
LOC: EDUNIT# → ED 20:19
DX: T48.1X1A Poisoning by skeletal muscle relaxants [neuromuscular blocking agents], accidental (unintentional), initial encounter (principal); G24.01 Drug induced subacute dyskinesia; R40.0 Somnolence; R06.00 Dyspnea, unspecified; Z79.82 Long term (current) use of aspirin
CPT/HCPCS: 36415; 71045; 80048; 93005; 99283; 99284

== ENCOUNTER 2020-04-01 15:01 | Outpatient (CLI) | payer MEDICARE, MEDICAID | END 2020-04-01 15:02 | disposition critical access hospital (66) | LOC: EMS 15:01 | PROVIDERS: ATTEND Surgery | DX: R42 Dizziness and giddiness (principal); M54.2 Cervicalgia; M25.519 Pain in unspecified shoulder | CPT/HCPCS: A0425; A0427 ==

== ENCOUNTER 2020-04-01 15:52 | Emergency (ER) | payer MEDICARE, MEDICAID ==
[2020-04-01] MEDS ORDERED: SODIUM CHLORIDE 0.9% 1,000 ML IV STA ×2 (16:08→17:47)
--- NOTE | 2020-04-01 16:12 | ED Physician Documentation ---
History of Present Illness - Stated complaint Stated Complaint: dizziness - Chief complaint Chief Complaint: General - History obtained from History obtained from: Patient, EMS - History of Present Illness Timing: Today Pain level max: 5 Pain level now: 5 - Additonal information Additional information: 69-year-old female, on dialysis presents to the emergency department with dizziness when standing today. She had her dialysis yesterday. She states that her normal dry weight is 64.4 kg, her weight yesterday was 64.8 kg. They took off 2 L at dialysis yesterday. She has not had anything to eat today, she did drink coffee this morning and a mocha this afternoon. No chest pain. No shortness of breath. Worse with standing, better with lying down. Patient has chronic neck pain. She is on oxycodone and OxyContin for this. No changes in her neck pain. Review of Systems Ten Systems: 10 systems reviewed and negative Constitutional: denies: Fever, Chills Ears: denies: Ear pain Nose: denies: Rhinorrhea / runny nose, Congestion Throat: denies: Sore throat Cardiac: denies: Chest pain / pressure Respiratory: denies: Dyspnea, Cough GI: denies: Abdominal Pain, Nausea, Vomiting, Diarrhea : denies: Dysuria, Frequency, Hesitancy Skin: denies: Rash Musculoskeletal: reports: Neck pain (Chronic, unchanged). denies: Back pain Neurologic: denies: Focal weakness, Numbness, Headache PD PAST MEDICAL HISTORY - Past Medical History Past Medical History: Yes Cardiovascular: Atrial fibrillation, Coronary artery disease, Congestive heart failure, Hypertension Respiratory: CPAP use, Shortness of breath, Sleep apnea, COPD Endocrine/Autoimmune: Other GI: GERD, Crohn's disease, Ulcers : Dialysis, Renal insuffiency, Frequency HEENT: Macular degeneration Psych: Depression, Anxiety Musculoskeletal: Chronic back pain, Fatigue Derm: None - Past Surgical History Past Surgical History: Yes General: Cholecystectomy, Appendectomy Ortho: Knee replacement, Hip replacement /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 Cardiovascular: Coronary stent, Cardiac catheterization HEENT: Cataracts, Tonsil/Adenoidectomy - Present Medications Home Medications: Ambulatory Orders Medication Instructions Recorded Confirmed Aspirin [Aspir-Low] 81 mg PO QPM 02/19/16 12/31/18 Sertraline [Zoloft] 100 mg PO DAILY 02/19/16 12/31/18 Gabapentin 300 mg PO TID 04/12/17 06/21/19 Pantoprazole [Protonix] 40 mg PO QDAC 10/22/16 12/31/18 allopurinoL [Allopurinol] 100 mg PO DAILY 10/22/16 12/31/18 Magnesium Oxide [Mag Ox] 400 mg PO DAILY 08/15/17 12/31/18 Temazepam [Restoril] 15 mg PO QPM PRN capsule 08/17/17 12/31/18 Atorvastatin [Lipitor] 1 tab PO DAILY 09/26/18 12/31/18 Cinacalcet HCl [Sensipar] 30 mg PO DAILY 09/26/18 12/31/18 Metoprolol Succinate 100 mg PO DAILY 09/26/18 12/31/18 Albuterol Sulfate [Albuterol 2 puffs IH QID #1 hfa.aer.ad 07/11/19 Sulfate Hfa] Oxycodone HCl/Acetaminophen 1 each PO QID PRN #16 tablet 07/11/19 [Percocet 10-325 mg Tablet] Oxycodone HCl/Acetaminophen 1 tab PRN 07/11/19 [Percocet 10-325 mg Tablet] dexAMETHasone [Decadron] 4 mg PO DAILY #7 tablet 07/11/19 - Allergies Allergies/Adverse Reactions: Allergies Allergy/AdvReac Type Severity Reaction Status Date / Time Iodinated Contrast Media Allergy Rash Verified 04/01/20 16:03 mushroom Allergy Anaphylaxis Verified 04/01/20 16:03 Penicillins Allergy Hives Verified 04/01/20 16:03 povidone-iodine Allergy Rash Verified 04/01/20 16:03 [From Betadine] soap * [From Betadine] Allergy Rash Verified 04/01/20 16:03 Sulfa (Sulfonamide Allergy Rash Verified 04/01/20 16:03 Antibiotics) - Social History Does the pt smoke?: No Smoking Status: Never smoker Does the pt drink ETOH?: No Does the pt have substance abuse?: No - Immunizations Immunizations are current?: Yes - POLST Patient has POLST: No POLST Status: Full Code PD ED PE NORMAL - Vitals Vital signs reviewed: Yes - General General: Alert and oriented X 3, No acute distress - HEENT HEENT: PERRL, Other (Dry lips and tongue) - Neck Neck: Supple, no meningeal sign - Cardiac Cardiac: RRR, Strong equal pulses - Respiratory Respiratory: No respiratory distress, Clear bilaterally - Abdomen Abdomen: Soft, Non tender, Non distended - Back Back: No CVA TTP, No spinal TTP - Derm Derm: Warm and dry, No rash - Extremities Extremities: No edema, No calf tenderness / cord - Neuro Neuro: Alert and oriented X 3 - Psych Psych: Normal mood, Normal affect Results - Vitals Vitals: Vital Signs - 24 hr 04/01/20 04/01/20 04/01/20 15:56 17:40 18:00 Temperature 36.7 C Heart Rate 63 68 69 Respiratory 20 67 H 14 Rate Blood Pressure 67/42 L 100/47 L 95/71 O2 Saturation 96 95 96 Oxygen O2 Source Room air - Labs Labs: Laboratory Tests 04/01/20 04/01/20 16:30 16:30 WBC 6.4 RBC 3.31 L Hgb 10.8 L Hct 33.8 L MCV 102.1 H MCH 32.6 H MCHC 32.0 RDW 14.1 Plt Count 234 MPV 9.3 Neut # (Auto) 4.1 Lymph # (Auto) 1.0 L [place] # (Auto) 0.8 Eos # (Auto) 0.4 Baso # (Auto) 0.1 Absolute Nucleated RBC 0.00 Nucleated RBC % 0.0 Sodium 130 L Potassium 4.8 Chloride 90 L Carbon Dioxide 28 Anion Gap 12.0 BUN 28 H Creatinine 3.5 H Estimated GFR (MDRD) 13 L Glucose 93 Calcium 8.3 L - Rads (name of study) head CT Radiology: Prelim report reviewed, EMP read contemporaneously, See rad report (no acute abnormality) cervical spine CT Radiology: Prelim report reviewed, EMP read contemporaneously, See rad report (no acute abnormality) PD MEDICAL DECISION MAKING - ED course Complexity details: reviewed results, re-evaluated patient, considered differential, d/w patient ED course: Symptoms resolved with IV fluids. Appears to have been over diuresed at dialysis yesterday. Patient did have a fall a week ago and does have some bruising around the left eye, therefore a head CT was performed. She has chronic neck pain, but was complaining of this so a CT scan of the cervical spine was performed as well. No acute findings on these tests. Patient counseled regarding signs and symptoms for which I believe and urgent re- evaluation would be necessary. Patient with good understanding of and agreement to plan and is comfortable going home at this time This document was made in part using voice recognition software. While efforts are made to proofread this document, sound alike and grammatical errors may occur. Departure - Departure Disposition: 01 Home, Self Care Clinical Impression: Dehydration, Neck pain Head injury Qualifiers: Encounter type: initial encounter Qualified Code(s): S09.90XA - Unspecified injury of head, initial encounter Condition: Good Instructions: ED Dehydration Follow-Up: your,doctor tomorrow at dialysis [Other] Comments: Have your dialysis as scheduled tomorrow. Return if you worsen. Follow-up with your doctor for further care.
[2020-04-01 16:36] LABS: BASOPHILS # (AUTO) 0.1 10^3/uL (0.0-0.1); BASOPHILS % (AUTO) 1.1 %; EOSINOPHILS # (AUTO) 0.4 10^3/uL (0.0-0.7); EOSINOPHILS % (AUTO) 5.5 %; HGB - HEMOGLOBIN 10.8 g/dL (12.0-16.0); LYMPHOCYTES % (AUTO) 15.7 %; MEAN CORPUSCULAR HEMOGLOBIN 32.6 pg (27.0-31.0); MEAN CORPUSCULAR VOLUME 102.1 fL (81.0-99.0); MEAN PLATELET VOLUME 9.3 fL (7.9-10.8); MONOCYTES # (AUTO) 0.8 10^3/uL (0.0-1.0); MONOCYTES % (AUTO) 12.4 %; NEUTROPHILS # (AUTO) 4.1 10^3/uL (1.5-6.6); NEUTROPHILS % (AUTO) 65.1 %; PLT - PLATELET COUNT 234 10^3/uL (130-450); RED BLOOD COUNT 3.31 10^6/uL (4.20-5.40); RED CELL DISTRIBUTION WIDTH 14.1 % (12.0-15.0); WHITE BLOOD COUNT 6.4 x10^3/uL (4.8-10.8)
[2020-04-01 16:44] LABS: CALCIUM 8.3 mg/dL (8.5-10.3); CREATININE 3.5 mg/dL (0.4-1.0)
--- NOTE | 2020-04-01 20:13 | CT Report ---
PROCEDURE: HEAD WO INDICATIONS: head injury, dizzy TECHNIQUE: Noncontrast 4.5 mm thick angled axial sections acquired from the foramen magnum to the vertex. For r adiation dose reduction, the following was used: automated exposure control, adjustment of mA and/or kV according to patient size. COMPARISON: CT head dated 02/05/2019.1. FINDINGS: Image quality: Excellent. CSF spaces: Basal cisterns are patent. No extra-axial fluid collections. Ventricles are normal in size and shape. Brain: No midline shift. No acute intracranial hemorrhage or mass effect. Multiple cortical calcific ations are seen in the left cerebral hemisphere, which may be related to a history of neurocysticerco sis, stable when compared to the CT from 02/05/2019. Mild hypodensities in the subcortical and periven tricular white matter compatible with chronic O ischemic changes. Skull and face: Calvarium and visualized facial bones are intact, without suspicious lesions. Sinuses: There is partial opacification of a right posterior ethmoid air cell. The remaining paranasa l sinuses are intact. The mastoid air cells are intact. IMPRESSION: No acute intracranial abnormality is seen. Stable chronic findings. Reviewed by: Arturo Roberts MD on 04/01/2020 8:12 PM PDT Approved by: Arturo Roberts MD on 04/01/2020 8:12 PM PDT Station ID: [id number]
--- NOTE | 2020-04-01 20:18 | CT Report ---
PROCEDURE: CERVICAL SPINE WO INDICATIONS: fall, neck pain TECHNIQUE: Noncontrast 3 mm thick sections acquired from the skull base to the T4 level. Sagittal and coronal r eformats were then constructed. For radiation dose reduction, the following was used: automated exp osure control, adjustment of mA and/or kV according to patient size. COMPARISON: Cervical spine CT dated 02/05/2019.. FINDINGS: Image quality: Excellent. Bones: No acute fractures or dislocations. Visualized superior ribs are intact. There are mild mul tilevel degenerative changes are seen without significant spinal canal stenosis. Soft tissues: Prevertebral soft tissues are normal in thickness. No paravertebral hematomas. No ap ical pneumothoraces. Aortic and carotid artery atherosclerotic calcifications are noted bilaterally. A calcified nodule is seen in the posterior aspect of the left thyroid lobe measuring 5 mm in size. IMPRESSION: No acute cervical spine fracture. Reviewed by: Arturo Roberts MD on 04/01/2020 8:17 PM PDT Approved by: Arturo Roberts MD on 04/01/2020 8:17 PM PDT Station ID: [id number]
[2020-04-01 20:35] VITALS: BP 109/48
== END 2020-04-01 20:40 | disposition home or self-care (01) ==
LOC: ED 15:52
DX: E86.0 Dehydration (principal); M54.2 Cervicalgia; G89.29 Other chronic pain; S00.12XA Contusion of left eyelid and periocular area, initial encounter; W19.XXXA Unspecified fall, initial encounter; I48.91 Unspecified atrial fibrillation; I25.10 Atherosclerotic heart disease of native coronary artery without angina pectoris; I13.2 Hypertensive heart and chronic kidney disease with heart failure and with stage 5 chronic kidney disease, or end stage renal disease; N18.6 End stage renal disease; Z99.2 Dependence on renal dialysis; Z95.5 Presence of coronary angioplasty implant and graft; Z79.82 Long term (current) use of aspirin
CPT/HCPCS: 36415; 70450; 72125; 80048; 80053; 83690; 84484; 85025; 96360; 99284

== ENCOUNTER 2020-04-08 03:37 | Outpatient (CLI) | payer MEDICARE, MEDICAID | END 2020-04-08 03:38 | disposition short-term general hospital (02) | LOC: EMS 03:37 | PROVIDERS: ATTEND Surgery | DX: R40.20 Unspecified coma (principal) | CPT/HCPCS: A0425; A0427 ==

== ENCOUNTER 2020-05-23 21:59 | Outpatient (CLI) | payer MEDICARE, MEDICAID | END 2020-05-23 22:00 | disposition short-term general hospital (02) | LOC: EMS 21:59 | PROVIDERS: ATTEND Surgery | DX: R06.00 Dyspnea, unspecified (principal); R05 Cough; R52 Pain, unspecified; R50.9 Fever, unspecified | CPT/HCPCS: A0425; A0429; A0888 ==

== ENCOUNTER 2020-07-13 | Outpatient (CLI) | payer MEDICARE, MEDICAID | END 2020-07-13 06:36 | disposition short-term general hospital (02) | CPT/HCPCS: A0425; A0427 ==

== ENCOUNTER 2020-07-26 08:50 | Outpatient (CLI) | payer MEDICARE, MEDICAID | END 2020-07-26 08:51 | disposition critical access hospital (66) | LOC: EMS 08:50 | PROVIDERS: ATTEND Surgery | DX: R06.00 Dyspnea, unspecified (principal) | CPT/HCPCS: A0425; A0433 ==

== ENCOUNTER 2020-07-26 09:13 | Emergency (ER) | payer MEDICARE, MEDICAID ==
[2020-07-26] MEDS ORDERED: DILTIAZEM 125 MG in DEXTROSE 5% 100 ML IV STA (09:23)
[2020-07-26] MEDS ORDERED: methylPREDNISolone SUCCINATE 125 MG/2 ML VIAL IVP STA (09:26)
--- NOTE | 2020-07-26 09:27 | ED Physician Documentation ---
History of Present Illness - Stated complaint Stated Complaint: SOA - Chief complaint Chief Complaint: Cardiac - History obtained from History obtained from: Patient - History of Present Illness Timing: Today Pain level max: 0 Pain level now: 0 - Additonal information Additional information: 69-year-old female presents to the emergency department with difficulty breathing today. She states she was recently released from [facility] for pneumonia. Has COPD as well. Does not currently on any steroids. She does not normally use oxygen at home. She does not know what antibiotic she is on. Her last dialysis was Thursday, 3 days ago. [place] Patient was picked up by EMS and brought here for evaluation. She was given adenosine for possible SVT by EMS. Has a history of A. fib. Patient states she has a dry cough. Noth ing makes it better or worse Review of Systems Ten Systems: 10 systems reviewed and negative Constitutional: reports: Fever, Chills Nose: denies: Rhinorrhea / runny nose, Congestion Throat: denies: Sore throat Respiratory: reports: Cough GI: denies: Abdominal Pain, Nausea, Vomiting, Diarrhea Skin: denies: Rash Musculoskeletal: denies: Neck pain, Back pain Neurologic: denies: Headache PD PAST MEDICAL HISTORY - Past Medical History Cardiovascular: Atrial fibrillation, Coronary artery disease, Congestive heart failure, Hypertension Respiratory: CPAP use, Shortness of breath, Sleep apnea, COPD Endocrine/Autoimmune: Other GI: GERD, Crohn's disease, Ulcers : Dialysis, Renal insuffiency, Frequency HEENT: Macular degeneration Psych: Depression, Anxiety Musculoskeletal: Chronic back pain, Fatigue Derm: None - Past Surgical History Past Surgical History: Yes General: Cholecystectomy, Appendectomy Ortho: Knee replacement, 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 Cardiovascular: Coronary stent, Cardiac catheterization HEENT: Cataracts, Tonsil/Adenoidectomy - Present Medications Home Medications: Ambulatory Orders Medication Instructions Recorded Confirmed Aspirin [Aspir-Low] 81 mg PO QPM 02/19/16 12/31/18 Sertraline [Zoloft] 100 mg PO DAILY 02/19/16 12/31/18 Gabapentin 300 mg PO TID 10/22/16 12/31/18 Pantoprazole [Protonix] 40 mg PO QDAC 10/22/16 12/31/18 allopurinoL [Allopurinol] 100 mg PO DAILY 10/22/16 12/31/18 Magnesium Oxide [Mag Ox] 400 mg PO DAILY 08/15/17 12/31/18 Temazepam [Restoril] 15 mg PO QPM PRN capsule 08/17/17 12/31/18 Atorvastatin [Lipitor] 1 tab PO DAILY 09/26/18 12/31/18 Cinacalcet HCl [Sensipar] 30 mg PO DAILY 09/26/18 12/31/18 Metoprolol Succinate 100 mg PO DAILY 09/26/18 12/31/18 Albuterol Sulfate [Albuterol 2 puffs IH QID #1 hfa.aer.ad 07/11/19 Sulfate Hfa] Oxycodone HCl/Acetaminophen 1 each PO QID PRN #16 tablet 07/11/19 [Percocet 10-325 mg Tablet] Oxycodone HCl/Acetaminophen 1 tab PRN 07/11/19 [Percocet 10-325 mg Tablet] dexAMETHasone [Decadron] 4 mg PO DAILY #7 tablet 07/11/19 - Allergies Allergies/Adverse Reactions: Allergies Allergy/AdvReac Type Severity Reaction Status Date / Time Iodinated Contrast Media Allergy Rash Verified 07/26/20 09:19 mushroom Allergy Anaphylaxis Verified 07/26/20 09:19 Penicillins Allergy Hives Verified 07/26/20 09:19 povidone-iodine Allergy Rash Verified 07/26/20 09:19 [From Betadine] soap * [From Betadine] Allergy Rash Verified 07/26/20 09:19 Sulfa (Sulfonamide Allergy Rash Verified 07/26/20 09:19 Antibiotics) - Social History Does the pt smoke?: No Smoking Status: Never smoker Does the pt drink ETOH?: No Does the pt have substance abuse?: No - Immunizations Immunizations are current?: Yes - POLST Patient has POLST: No POLST Status: Full Code PD ED PE NORMAL - Vitals Vital signs reviewed: Yes - General General: Alert and oriented X 3, No acute distress - HEENT HEENT: Moist mucous membranes - Neck Neck: Supple, no meningeal sign - Cardiac Cardiac: Other (Tachycardic) - Respiratory Respiratory: Other (Tachypnea, wheezing and diminished breath sounds bilaterally) - Abdomen Abdomen: Soft, Non tender, Non distended - Derm Derm: Warm and dry, No rash - Extremities Extremities: Other (1+ BLE edema) - Neuro Neuro: Alert and oriented X 3 Results - Vitals Vitals: Vital Signs - 24 hr 07/26/20 07/26/20 07/26/20 09:19 09:45 09:54 Temperature 38.8 C H 38.6 C H Heart Rate 160 H 139 H 123 H Respiratory 26 H 18 20 Rate Blood Pressure 118/67 110/63 108/72 O2 Saturation 94 96 96 07/26/20 07/26/20 07/26/20 10:59 11:00 11:30 Temperature 38.1 C H Heart Rate 124 H 114 H 122 H Respiratory 17 17 18 Rate Blood Pressure 116/77 110/58 L O2 Saturation 96 98 07/26/20 07/26/20 14:14 15:11 Temperature 37.9 C Heart Rate 109 H 114 H Respiratory 14 18 Rate Blood Pressure 136/94 H 117/77 O2 Saturation 98 97 Oxygen O2 Source Oxymask - EKG (time done) 0913 Rate: Rate (enter#) (152) Rhythm: Atrial fibrillation (w/ RVR) QRS: Normal Ischemia: Non specific changes (rate related) - Labs Labs: Laboratory Tests 07/26/20 07/26/20 07/26/20 09:21 09:43 09:43 WBC 16.1 H RBC 3.07 L Hgb 10.0 L Hct 31.9 L MCV 103.9 H MCH 32.6 H MCHC 31.3 L RDW 13.9 Plt Count 245 MPV 9.6 Neut # (Auto) 14.3 H Lymph # (Auto) 0.5 L [place] # (Auto) 1.0 Eos # (Auto) 0.1 Baso # (Auto) 0.1 Absolute Nucleated RBC 0.00 Nucleated RBC % 0.0 PT 14.2 H INR 1.3 H APTT 27.4 Sodium Potassium Chloride Carbon Dioxide Anion Gap BUN Creatinine Estimated GFR (MDRD) Glucose Lactic Acid Calcium Total Bilirubin AST ALT Alkaline Phosphatase Total Protein Albumin Globulin Albumin/Globulin Ratio Lipase Nasal Adenovirus (PCR) NOT DETECTED Nasal B. parapertussis DNA (PCR) NOT DETECTED Nasal Coronavir 229E PCR NOT DETECTED Nasal Coronavir HKU1 PCR NOT DETECTED Nasal Coronavir NL63 PCR NOT DETECTED Nasal Coronavir OC43 PCR NOT DETECTED Nasal Enterovir/Rhinovir PCR NOT DETECTED Nasal Influenza B PCR NOT DETECTED Nasal Influenza A PCR NOT DETECTED Nasal Parainfluen 1 PCR NOT DETECTED Nasal Parainfluen 2 PCR NOT DETECTED Nasal Parainfluen 3 PCR NOT DETECTED Nasal Parainfluen 4 PCR NOT DETECTED Nasal RSV (PCR) NOT DETECTED Nasal B.pertussis DNA PCR NOT DETECTED Nasal C.pneumoniae (PCR) NOT DETECTED Cristopher Human Metapneumo PCR NOT DETECTED Nasal M.pneumoniae (PCR) NOT DETECTED Nasal SARS-CoV-2 (PCR) NOT DETECTED 07/26/20 07/26/20 09:43 09:43 WBC RBC Hgb Hct MCV MCH MCHC RDW Plt Count MPV Neut # (Auto) Lymph # (Auto) [place] # (Auto) Eos # (Auto) Baso # (Auto) Absolute Nucleated RBC Nucleated RBC % PT INR APTT Sodium 135 Potassium 5.1 H Chloride 96 L Carbon Dioxide 23 Anion Gap 16.0 H BUN 51 H Creatinine 5.4 H Estimated GFR (MDRD) 8 L Glucose 150 H Lactic Acid 1.5 Calcium 7.4 L Total Bilirubin 0.5 AST 14 ALT < 10 L Alkaline Phosphatase 123 H Total Protein 7.0 Albumin 3.5 Globulin 3.5 Albumin/Globulin Ratio 1.0 Lipase 38 Nasal Adenovirus (PCR) Nasal B. parapertussis DNA (PCR) Nasal Coronavir 229E PCR Nasal Coronavir HKU1 PCR Nasal Coronavir NL63 PCR Nasal Coronavir OC43 PCR Nasal Enterovir/Rhinovir PCR Nasal Influenza B PCR Nasal Influenza A PCR Nasal Parainfluen 1 PCR Nasal Parainfluen 2 PCR Nasal Parainfluen 3 PCR Nasal Parainfluen 4 PCR Nasal RSV (PCR) Nasal B.pertussis DNA PCR Nasal C.pneumoniae (PCR) Cristopher Human Metapneumo PCR Nasal M.pneumoniae (PCR) Nasal SARS-CoV-2 (PCR) - Rads (name of study) cxr Radiology: Prelim report reviewed, EMP read contemporaneously, See rad report (Finding is suggestive of small to moderate size left lower lobe infiltrate. ) PD MEDICAL DECISION MAKING - ED course Complexity details: reviewed old records, reviewed results, re-evaluated patient, considered differential, d/w patient, d/w organizational development consultant ED course: 69-year-old female presents the emergency department with atrial fibrillation with rapid ventricular response. She is also febrile, has pneumonia and leukocytosis. Given IV Levaquin. Blood cultures drawn. Normal lactate. Diltiazem drip started. Discussed the case with cardiology, Dr. Chavarria at [facility], she recommends a heparin drip and transfer. Discussed with Dr. Iqbal, hospitalist who graciously accepts in transfer. Discussed with nephrology on- call as well who will consult as needed for dialysis. Original call placed to [facility] at 1030, callback received at [address] Chavarria, then approximately 1:[address] Iqbal. COBRA forms completed. This document was made in part using voice recognition software. While efforts are made to proofread this document, sound alike and grammatical errors may occur. I placed multiple IVs in this patient. They would work for several hours, then have the patient moved more and more, they would become dislodged. Therefore 8 another IV was started just prior to transfer. Attempted to have a PICC line placed here, but anesthesia is unavailable as there was an event in the OR. Departure - Departure Disposition: 02 Transfer Acute Care Hosp Clinical Impression: Atrial fibrillation with RVR, COPD exacerbation Pneumonia Qualifiers: Pneumonia type: due to unspecified organism Laterality: unspecified laterality Lung location: unspecified part of lung Qualified Code(s): J18.9 - Pneumonia, unspecified organism Condition: Stable Discharge Date/Time: 07/26/20 16:07
--- NOTE | 2020-07-26 09:51 | XRAY Report ---
PROCEDURE: Chest 1 View X-Ray INDICATIONS: cough TECHNIQUE: One view of the chest was acquired. COMPARISON: 12/07/2019 FINDINGS: Surgical changes and devices: None. Lungs and pleura: Chronic increased interstitial reticular markings are again noted in bilateral lung alonso. There is interval development of ill-defined opacity seen in left lower lobe concerning for left lower lobe infiltrate. No significant pleural effusion. No gross pneumothorax. Mediastinum: Mediastinal contours appear normal. Heart size is enlarged. Bones and chest wall: No suspicious bony lesions. Overlying soft tissues appear unremarkable. IMPRESSION: Finding is suggestive of small to moderate size left lower lobe infiltrate. Reviewed by: Zack Hopson MD on 07/26/2020 9:50 AM [facility] Approved by: Zack Hopson MD on 07/26/2020 9:50 AM [facility] Station ID: [id number]
[2020-07-26 09:57] LABS: BASOPHILS # (AUTO) 0.1 10^3/uL (0.0-0.1); BASOPHILS % (AUTO) 0.5 %; EOSINOPHILS # (AUTO) 0.1 10^3/uL (0.0-0.7); EOSINOPHILS % (AUTO) 0.9 %; LYMPHOCYTES # (AUTO) 0.5 10^3/uL (1.5-3.5); LYMPHOCYTES % (AUTO) 2.9 %; MEAN CORPUSCULAR HEMOGLOBIN 32.6 pg (27.0-31.0); MEAN CORPUSCULAR HGB CONC 31.3 g/dL (32.0-36.0); MEAN CORPUSCULAR VOLUME 103.9 fL (81.0-99.0); MEAN PLATELET VOLUME 9.6 fL (7.9-10.8); MONOCYTES % (AUTO) 6.4 %; NEUTROPHILS # (AUTO) 14.3 10^3/uL (1.5-6.6); NEUTROPHILS % (AUTO) 88.4 %; PLT - PLATELET COUNT 245 10^3/uL (130-450); RED BLOOD COUNT 3.07 10^6/uL (4.20-5.40); RED CELL DISTRIBUTION WIDTH 13.9 % (12.0-15.0); WHITE BLOOD COUNT 16.1 x10^3/uL (4.8-10.8)
[2020-07-26 10:05] LABS: ALBUMIN 3.5 g/dL (3.2-5.5); ALKALINE PHOSPHATASE 123 IU/L (42-121); ALT ALANINE AMINOTRANSFERASE < 10 IU/L (10-60); AST ASPARTATE AMINOTRANSFERASE 14 IU/L (10-42); BILIRUBIN,TOTAL 0.5 mg/dL (0.2-1.0); BUN - BLOOD UREA NITROGEN 51 mg/dL (6-20); CALCIUM 7.4 mg/dL (8.5-10.3); CARBON DIOXIDE - CO2 23 mmol/L (21-32); CHLORIDE 96 mmol/L (101-111); CREATININE 5.4 mg/dL (0.4-1.0); GLUCOSE 150 mg/dL (70-100); LIPASE 38 U/L (22-51); SODIUM 135 mmol/L (135-145)
[2020-07-26 10:08] LABS: INR 1.3 (0.8-1.2); PT - PROTHROMBIN TIME 14.2 secs (9.9-12.6)
[2020-07-26 10:15] LABS: PARTIAL THROMBOPLASTIN TIME 27.4 secs (24.9-33.3)
[2020-07-26 10:33] LABS: C. PNEUMONIAE- RESP PCR PANEL NOT DETECTED
[2020-07-26] MEDS ORDERED: oxyCODONE 5 MG TABLET PO STA (10:33)
[2020-07-26] MEDS ORDERED: ALBUTEROL NEB 2.5 MG/3 ML INH STA (10:34)
[2020-07-26] MEDS ORDERED: ACETAMINOPHEN 325 MG TABLET PO STA (11:07)
[2020-07-26] MEDS ORDERED: HYDROmorphone 1 MG/ML CARPUJECT IVP STA (11:56)
[2020-07-26] MEDS ORDERED: HEPARIN 25000UNITS/500ML (D5W) 25,000 UNIT/500 ML BAG IV SCH (13:00)
[2020-07-26] MEDS ORDERED: levoFLOXacin 500 MG/100 ML 500 MG/100 ML BAG IV STA (13:14)
[2020-07-26 15:12] VITALS: BP 117/77
== END 2020-07-26 16:07 | disposition short-term general hospital (02) ==
LOC: EDUNIT# → ED 09:13
DX: I48.91 Unspecified atrial fibrillation (principal); J44.1 Chronic obstructive pulmonary disease with (acute) exacerbation; J18.9 Pneumonia, unspecified organism; I13.2 Hypertensive heart and chronic kidney disease with heart failure and with stage 5 chronic kidney disease, or end stage renal disease; I50.9 Heart failure, unspecified; N18.6 End stage renal disease; Z99.2 Dependence on renal dialysis; Z20.828 Contact with and (suspected) exposure to other viral communicable diseases
CPT/HCPCS: 36415; 71045; 80053; 83605; 83690; 85025; 85610; 85730; 87040; 87631; 93005; 94640; 96365; 96366; 96368; 96375; 99285; A9270; J1170; 0202U

== ENCOUNTER 2020-07-26 15:51 | Outpatient (CLI) | payer MEDICARE, MEDICAID | END 2020-07-26 15:52 | disposition short-term general hospital (02) | LOC: EMS 15:51 | PROVIDERS: ATTEND Surgery | DX: J18.9 Pneumonia, unspecified organism (principal); I48.91 Unspecified atrial fibrillation | CPT/HCPCS: A0425; A0426 ==

== ENCOUNTER 2020-08-09 11:12 | Outpatient (CLI) | payer MEDICARE, MEDICAID | END 2020-08-09 11:13 | disposition critical access hospital (66) | LOC: EMS 11:12 | PROVIDERS: ATTEND Surgery | DX: Z04.3 Encounter for examination and observation following other accident (principal); M79.605 Pain in left leg | CPT/HCPCS: A0425; A0429 ==

== ENCOUNTER 2020-08-09 11:40 | Emergency (ER) | payer MEDICARE, MEDICAID ==
--- NOTE | 2020-08-09 12:24 | ED Physician Documentation ---
PD HPI LOWER EXT INJURY - Stated complaint Stated Complaint: GLF - Chief complaint Chief Complaint: Trauma Ext - History obtained from History obtained from: Patient - Additional information Additional information: Patient comes emergency department chief complaint of ground-level fall and left lower extremity pain. Patient states she got up from sitting, lost her balance, and fell. She denies any syncope. The patient states she frequently loses her balance and has a lot of falls. Patient denies any other injuries. She did not hit her head or lose consciousness. No spinal pain. No rib or shoulder pain. No other complaints at this time. Patient states she was not able to get up because it hurt and had to call EMS. Review of Systems Ten Systems: 10 systems reviewed and negative Constitutional: reports: Reviewed and negative Eyes: reports: Reviewed and negative Ears: reports: Reviewed and negative Nose: reports: Reviewed and negative Throat: reports: Reviewed and negative Cardiac: reports: Reviewed and negative Respiratory: reports: Reviewed and negative GI: reports: Reviewed and negative : reports: Reviewed and negative Skin: reports: Reviewed and negative Musculoskeletal: reports: Extremity pain Neurologic: reports: Reviewed and negative Psychiatric: reports: Reviewed and negative Endocrine: reports: Reviewed and negative Immunocompromised: reports: Reviewed and negative PD PAST MEDICAL HISTORY - Past Medical History Past Medical History: Yes Cardiovascular: Atrial fibrillation, Coronary artery disease, Congestive heart failure, Hypertension Respiratory: CPAP use, Shortness of breath, Sleep apnea, COPD Neuro: None Endocrine/Autoimmune: Other GI: GERD, Crohn's disease, Ulcers 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, Renal insuffiency, Frequency HEENT: Macular degeneration Psych: Depression, Anxiety Musculoskeletal: Chronic back pain, Fatigue Derm: None - Past Surgical History Past Surgical History: Yes General: Cholecystectomy, Appendectomy Ortho: Knee replacement, Hip replacement /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 HELPER: Hysterectomy Cardiovascular: Coronary stent, Cardiac catheterization HEENT: Cataracts, Tonsil/Adenoidectomy - Present Medications Home Medications: Ambulatory Orders Medication Instructions Recorded Confirmed Aspirin [Aspir-Low] 81 mg PO QPM 02/19/16 12/31/18 Sertraline [Zoloft] 100 mg PO DAILY 02/19/16 12/31/18 Gabapentin 300 mg PO TID 10/22/16 12/31/18 Pantoprazole [Protonix] 40 mg PO QDAC 10/22/16 12/31/18 allopurinoL [Allopurinol] 100 mg PO DAILY 10/22/16 12/31/18 Magnesium Oxide [Mag Ox] 400 mg PO DAILY 08/15/17 12/31/18 Temazepam [Restoril] 15 mg PO QPM PRN capsule 08/17/17 12/31/18 Atorvastatin [Lipitor] 1 tab PO DAILY 09/26/18 12/31/18 Cinacalcet HCl [Sensipar] 30 mg PO DAILY 09/26/18 12/31/18 Metoprolol Succinate 100 mg PO DAILY 09/26/18 12/31/18 Albuterol Sulfate [Albuterol 2 puffs IH QID #1 hfa.aer.ad 07/11/19 Sulfate Hfa] Oxycodone HCl/Acetaminophen 1 each PO QID PRN #16 tablet 07/11/19 [Percocet 10-325 mg Tablet] Oxycodone HCl/Acetaminophen 1 tab PRN 07/11/19 [Percocet 10-325 mg Tablet] dexAMETHasone [Decadron] 4 mg PO DAILY #7 tablet 07/11/19 - Allergies Allergies/Adverse Reactions: Allergies Allergy/AdvReac Type Severity Reaction Status Date / Time Iodinated Contrast Media Allergy Rash Verified 08/09/20 11:47 mushroom Allergy Anaphylaxis Verified 08/09/20 11:47 Penicillins Allergy Hives Verified 08/09/20 11:47 povidone-iodine Allergy Rash Verified 08/09/20 11:47 [From Betadine] soap * [From Betadine] Allergy Rash Verified 08/09/20 11:47 Sulfa (Sulfonamide Allergy Rash Verified 08/09/20 11:47 Antibiotics) - Social History Does the pt smoke?: No Smoking Status: Never smoker Does the pt drink ETOH?: No Does the pt have substance abuse?: No - Immunizations Immunizations are current?: Yes - POLST Patient has POLST: No POLST Status: Full Code PD ED PE NORMAL - Vitals Vital signs reviewed: Yes - General General: Alert and oriented X 3, No acute distress, Well developed/nourished - HEENT HEENT: Atraumatic, PERRL, EOMI, Moist mucous membranes - Neck Neck: Supple, no meningeal sign - Cardiac Cardiac: RRR, No murmur - Respiratory Respiratory: No respiratory distress, Clear bilaterally - Abdomen Abdomen: Soft, Non tender, Non distended - Back Back: No spinal TTP - Derm Derm: Normal color, Warm and dry, No rash - Extremities Extremities: No deformity, Other (1+ pitting edema left lower extremity. Tenderness to palpation without deformity mid thigh. No tenderness over right hip. Limited range of motion of left knee and left hip, secondary to causing pain in left thigh. Slight shortening, approximately 1 cm, of left lower extremity compared to right.) - Neuro Neuro: Alert and oriented X 3, rug setter [place] 2-12 intact, No motor deficit, No sensory deficit, Normal speech - Psych Psych: Normal mood, Normal affect Results - Vitals Vitals: Vital Signs - 24 hr 08/09/20 11:47 Temperature 36.7 C Heart Rate 68 Respiratory 18 Rate Blood Pressure 151/40 H O2 Saturation 100 Oxygen O2 Source Nasal cannula - Labs Labs: Laboratory Tests 08/09/20 08/09/20 13:04 13:04 WBC 6.5 RBC 2.85 L Hgb 9.3 L Hct 31.5 L MCV 110.5 H MCH 32.6 H MCHC 29.5 L RDW 13.9 Plt Count 147 MPV 9.5 Neut # (Auto) 4.8 Lymph # (Auto) 0.8 L [place] # (Auto) 0.6 Eos # (Auto) 0.2 Baso # (Auto) 0.0 Absolute Nucleated RBC 0.00 Nucleated RBC % 0.0 Sodium 135 Potassium 5.2 H Chloride 95 L Carbon Dioxide 28 Anion Gap 12.0 BUN 23 H Creatinine 3.3 H Estimated GFR (MDRD) 14 L Glucose 92 Calcium 8.2 L Total Bilirubin 0.7 AST 19 ALT 11 Alkaline Phosphatase 149 H Total Protein 6.7 Albumin 3.5 Globulin 3.2 Albumin/Globulin Ratio 1.1 Lipase 24 - Rads (name of study) XR femur Radiology: Final report received, EMP read indepedently, See rad report XR hip Radiology: Final report received, EMP read indepedently, See rad report (L hip prosthesis) CT LLE Radiology: Final report received, EMP read indepedently, See rad report (Oblique diaphyseal fx prox left femur) PD MEDICAL DECISION MAKING - ED course Complexity details: reviewed results, re-evaluated patient, considered differential, d/w patient ED course: The patient was worked up with x-rays of the left thigh and left hip initially. These did show what I thought was a periprosthetic fracture, but radiologist read them as negative. I still have a high level of suspicion, and so CT scan without contrast was performed the patient's femur, and did indeed show fracture. The patient was treated with Dilaudid IM initially, as patient was had very difficult peripheral access. I placed right neck EJ line in the patient and she was able to be given IV Dilaudid thereby. I had images pushed to [facility] and at this point in time, and waiting to hear back from the orthopedist. Preoperative labs have been obtained, and patient was found to have a BUN of 27 and creatinine 3.3. Her potassium was slightly elevated at 5.2. I have discussed with the patient that given her dialysis status, as well as the complicated nature of her fracture, she will not be able to stay here at would be for care. She is aware that we are attempting to arrange a transfer for her. The patient is in stable condition at this time. She has been signed out to Dr. Orlando, pending acceptance at another facility. Departure - Departure Clinical Impression: Femur fracture, left Qualifiers: Encounter type: initial encounter Femur location: shaft Fracture type: closed Fracture morphology: oblique Fracture alignment: nondisplaced Qualified Code(s): S72.335A - Nondisplaced oblique fracture of shaft of left femur, initial encounter for closed fracture
--- NOTE | 2020-08-09 12:56 | XRAY Report ---
PROCEDURE: Femur 2V LT INDICATIONS: glf/pain mid-thigh TECHNIQUE: 2 views of the femur were acquired. COMPARISON: X-ray hip 08/09/2020, 04/19/2019 FINDINGS: Bones: No fractures or dislocations. No suspicious bony lesions. Partially visualized arthroplasty from the left hip is noted. Hardware is intact. Severe degenerative changes are noted at the knee. Soft tissues: No suspicious soft tissue calcifications or masses. IMPRESSION: No visualized acute fracture or dislocation. However, occult injury cannot be excluded. Recommend jordin rt interval imaging follow-up in 7-10 days as clinically indicated for additional evaluation. Reviewed by: Radha Chung MD on 08/09/2020 12:55 PM PST Approved by: Radha Chung MD on 08/09/2020 12:55 PM PST Station ID: [id number]
--- NOTE | 2020-08-09 12:57 | XRAY Report ---
PROCEDURE: Pelvis 1 View INDICATIONS: LEFT HIP PAIN GLF TECHNIQUE: 1 view(s) of the pelvis acquired. COMPARISON: X-ray femur 08/09/2020, x-ray hip 04/19/2019 FINDINGS: Bones: No fractures or dislocations. No suspicious bony lesions. Partially visualized left hip art hroplasty. Hardware appears intact without evidence of hardware fracture or periprosthetic loosening. No dislocation. Soft tissues: Visualized bowel gas pattern is normal. No suspicious soft tissue calcifications. IMPRESSION: No visualized acute fracture or dislocation. However, occult injury cannot be excluded. Recommend short interval imaging follow-up in 7-10 days as clinically indicated for additional evalua tion. Reviewed by: Radha Chung MD on 08/09/2020 12:56 PM PST Approved by: Radha Chung MD on 08/09/2020 12:56 PM [facility] Station ID: [id number]
[2020-08-09 13:10] LABS: BASOPHILS % (AUTO) 0.6 %; EOSINOPHILS # (AUTO) 0.2 10^3/uL (0.0-0.7); EOSINOPHILS % (AUTO) 3.2 %; HGB - HEMOGLOBIN 9.3 g/dL (12.0-16.0); LYMPHOCYTES # (AUTO) 0.8 10^3/uL (1.5-3.5); LYMPHOCYTES % (AUTO) 12.9 %; MEAN CORPUSCULAR HEMOGLOBIN 32.6 pg (27.0-31.0); MEAN CORPUSCULAR HGB CONC 29.5 g/dL (32.0-36.0); MEAN CORPUSCULAR VOLUME 110.5 fL (81.0-99.0); MEAN PLATELET VOLUME 9.5 fL (7.9-10.8); MONOCYTES # (AUTO) 0.6 10^3/uL (0.0-1.0); MONOCYTES % (AUTO) 9.2 %; NEUTROPHILS # (AUTO) 4.8 10^3/uL (1.5-6.6); NEUTROPHILS % (AUTO) 73.5 %; PLT - PLATELET COUNT 147 10^3/uL (130-450); RED BLOOD COUNT 2.85 10^6/uL (4.20-5.40); RED CELL DISTRIBUTION WIDTH 13.9 % (12.0-15.0); WHITE BLOOD COUNT 6.5 x10^3/uL (4.8-10.8)
[2020-08-09 13:25] LABS: ALBUMIN 3.5 g/dL (3.2-5.5); ALBUMIN/GLOBULIN RATIO 1.1 (1.0-2.2); BILIRUBIN,TOTAL 0.7 mg/dL (0.2-1.0); CALCIUM 8.2 mg/dL (8.5-10.3); CREATININE 3.3 mg/dL (0.4-1.0); TOTAL PROTEIN 6.7 g/dL (6.7-8.2)
[2020-08-09] MEDS ORDERED: HYDROmorphone 1 MG/ML CARPUJECT IVP STA ×5 (13:55→22:18)
[2020-08-09] MEDS ORDERED: SODIUM CHLORIDE 0.9% 1,000 ML IV STA (13:55)
[2020-08-09] MEDS ORDERED: HYDROmorphone 1 MG/ML CARPUJECT IM STA (13:58)
--- NOTE | 2020-08-09 14:58 | CT Report ---
PROCEDURE: LOWER EXTREMITY WO - LT INDICATIONS: mid-thigh pain after fall,unable to bear weight TECHNIQUE: Noncontrast 3 mm axial sections acquired of the left femur, with coronal and sagittal reformats. COMPARISON: None. FINDINGS: Image quality: Excellent. Bones: Left hip arthroplasty. Hardware is intact. There is an oblique nondisplaced fracture within the proximal femoral diaphysis. It is predominately along the medial posterior aspect. Soft tissues: Soft tissues are unremarkable. IMPRESSION: Oblique nondisplaced fracture within the proximal femoral diaphysis. Reviewed by: Radha Chung MD on 08/09/2020 2:57 PM PST Approved by: Radha Chung MD on 08/09/2020 2:57 PM PST Station ID: [id number]
[2020-08-09 18:25] LABS: C. PNEUMONIAE- RESP PCR PANEL NOT DETECTED
--- NOTE | 2020-08-09 20:02 | ED Physician Documentation ---
ED Addendum - Addendum Addendum: 08/09/20 20:[address] Mathews at shift change. Briefly this is a medically complicated 69-year-old woman who is on dialysis, also has A. fib, coronary disease, CHF, hypertension, sleep apnea, anxiety and depression. She had a ground-level fall and sustained a periprosthetic right femur fracture. Spoke with Dr Blanton, ortho at who accepts but defers to hospitalist for admit at . Spoke with Dr Rehana Davis, hospitalist at [facility] who accepts. Diagnoses: 1. Left periprosthetic hip fracture 2. Obstructive sleep apnea 3. History of coronary artery disease 4. End-stage renal disease Condition: Serious Disposition: Transfer to [facility], ALS transport
[2020-08-09] MEDS ORDERED: LORazepam 2 MG/ML VIAL IVP STA (20:15)
[2020-08-09] MEDS ORDERED: diazePAM INJ 5 MG/ML SYRINGE IVP STA (23:48)
[2020-08-10 00:01] VITALS: BP 158/68
--- NOTE | 2020-08-10 00:06 | ED Physician Documentation ---
ED Addendum - Addendum Addendum: 08/10/20 00:05 Nurse reports the patient was having increased pain again in the hip and also reporting some cramping in the leg. Evaluation of the leg by me showed there to be normal sensation color and pulses in the foot and no edema nor tenderness in the calf. Presume muscle spasms related to the fracture. No signs of vascular insufficiency or ischemia. She will be given some more pain medicine and muscle relaxant.
== END 2020-08-10 00:10 | disposition short-term general hospital (02) ==
LOC: EDUNIT# → ED 11:40
DX: S72.335A Nondisplaced oblique fracture of shaft of left femur, initial encounter for closed fracture (principal); W19.XXXA Unspecified fall, initial encounter; Z91.81 History of falling; Y92.009 Unspecified place in unspecified non-institutional (private) residence as the place of occurrence of the external cause; I48.91 Unspecified atrial fibrillation; Z95.5 Presence of coronary angioplasty implant and graft; I13.2 Hypertensive heart and chronic kidney disease with heart failure and with stage 5 chronic kidney disease, or end stage renal disease; N18.6 End stage renal disease; I50.9 Heart failure, unspecified; Z99.2 Dependence on renal dialysis
CPT/HCPCS: 36415; 72170; 73552; 73700; 80053; 83690; 85025; 87631; 96374; 96375; 96376; 99283; 99285; J1170; J2060; 0202U

== ENCOUNTER 2020-09-13 20:30 | Outpatient (CLI) | payer MEDICARE, MEDICAID | END 2020-09-13 20:31 | disposition short-term general hospital (02) | LOC: EMS 20:30 | DX: R06.02 Shortness of breath (principal); R60.0 Localized edema | CPT/HCPCS: A0425; A0427 ==

== ENCOUNTER 2020-10-02 11:56 | Outpatient (CLI) | payer MEDICARE, MEDICAID | END 2020-10-02 11:57 | disposition short-term general hospital (02) | LOC: EMS 11:56 | DX: M54.5 Low back pain (principal) | CPT/HCPCS: A0425; A0429 ==

== ENCOUNTER 2020-10-15 | Outpatient (CLI) | payer MEDICARE, MEDICAID | END 2020-10-15 21:32 | disposition critical access hospital (66) | DX: R07.89 Other chest pain (principal) | CPT/HCPCS: A0425; A0429 ==

== ENCOUNTER 2020-10-15 | Outpatient (CLI) | payer MEDICARE, MEDICAID | END 2020-10-15 16:38 | disposition EMS.NT ==

== ENCOUNTER 2020-10-15 21:53 | Emergency (ER) | payer MEDICARE, MEDICAID ==
--- NOTE | 2020-10-15 22:08 | ED Physician Documentation ---
PD HPI Fall - Stated complaint Stated Complaint: RIB PAIN/GLF - Chief complaint Chief Complaint: Trauma Ch/Bk - History obtained from History obtained from: Patient, EMS - History of Present Illness Mechanism of injury: Lost balance Fall distance: Standing position Where injury occurred: Home Timing - onset: Enter time (15:00), Today Injury(ies) location: Chest Pain level now: 9 Quality of pain: Pain Associated symptoms: No: LOC, AMS, Neck pain, Weakness, Paresthesias, Dyspnea, Nausea / vomiting, Hematemesis, Abdominal distension Symptoms improve with: Rest Worsens with: Movement, Palpation Contributing factors: No: Anticoagulated, Intoxicated Recently seen: Not recently seen - Additional information Additional information: patient lost her balance today at approximately 3 pm at home, causing her to fall forward onto her linoleum floor. At that time, EMS evaluated her and she declined transport to hospital because she felt well. However, she called 911 tonight due to gradually worsening bilateral anterior chest pain since she fell. The pain is worse with movement and palpation. Denies head injury, denies weakness, denies numbness. Does not take blood thinners Review of Systems Constitutional: reports: Reviewed and negative Eyes: reports: Reviewed and negative Ears: reports: Reviewed and negative Nose: reports: Reviewed and negative Throat: reports: Reviewed and negative Cardiac: reports: Chest pain / pressure. denies: Palpitations, Pedal edema, Calf pain Respiratory: denies: Dyspnea, Cough, Hemoptysis, Wheezing GI: reports: Abdominal Pain (across upper abdomen). denies: Abdominal Swelling, Nausea, Vomiting, Constipation, Diarrhea : denies: Incontinent Skin: denies: Abrasion (s), Laceration (s) Musculoskeletal: reports: Back pain. 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, Renal insuffiency, Frequency HEENT: Macular degeneration Psych: Depression, Anxiety Musculoskeletal: Chronic back pain, Fatigue Derm: None - Past Surgical History Past Surgical History: Yes General: Cholecystectomy, Appendectomy Ortho: Knee replacement, Hip replacement /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: Hysterectomy Cardiovascular: Coronary stent, Cardiac catheterization HEENT: Cataracts, Tonsil/Adenoidectomy - Present Medications Home Medications: Ambulatory Orders Medication Instructions Recorded Confirmed Atorvastatin [Lipitor] 10/16/20 Diclofenac Sodium [Voltaren 350 gm TP 10/16/20 10/16/20 Arthritis Pain] Fluticasone/Salmeterol [Advair 10/16/20 10/16/20 250-50 Diskus] Furosemide [Lasix] 80 mg PO BID 10/16/20 10/16/20 Metoprolol Succinate [Toprol Xl] 25 mg PO DAILY 10/16/20 10/16/20 Sertraline [Zoloft] 100 mg PO DAILY 10/16/20 10/16/20 Temazepam [Restoril] 15 mg PO HS 10/16/20 10/16/20 allopurinoL [Zyloprim] 100 mg PO BID 10/16/20 10/16/20 amLODIPine [Norvasc] 10 mg PO DAILY 10/16/20 10/16/20 oxyCODONE ER [OxyCONTIN] 10 mg PO Q12H 10/16/20 10/16/20 - Allergies Allergies/Adverse Reactions: Allergies Allergy/AdvReac Type Severity Reaction Status Date / Time Iodinated Contrast Media Allergy Rash Verified 08/09/20 11:47 mushroom Allergy Anaphylaxis Verified 08/09/20 11:47 Penicillins Allergy Hives Verified 08/09/20 11:47 povidone-iodine Allergy Rash Verified 08/09/20 11:47 [From Betadine] soap * [From Betadine] Allergy Rash Verified 08/09/20 11:47 Sulfa (Sulfonamide Allergy Rash Verified 08/09/20 11:47 Antibiotics) - Social History Does the pt smoke?: No Smoking Status: Never smoker Does the pt drink ETOH?: No Does the pt have substance abuse?: No - Immunizations Immunizations are current?: Yes - POLST Patient has POLST: No POLST Status: Full Code PD ED PE NORMAL - Vitals Vital signs reviewed: Yes - General General: Alert and oriented X 3, Well developed/nourished - HEENT HEENT: Atraumatic, PERRL - Neck Neck: No bony TTP - Cardiac Cardiac: RRR, No murmur - Respiratory Respiratory: No respiratory distress, Clear bilaterally - Abdomen Abdomen: Soft, Non distended, Other (TTP across upper abdomen without rebound or guarding. old echymoses bilateral lower abdomen (patient indicates this is due to SQ heparin given while inpatient at [facility] a few weeks ago)) - Back Back: Other (TTP lower thoracic paravertebral area bilaterally) - Derm Derm: Warm and dry - Extremities Extremities: No edema - Neuro Neuro: Alert and oriented X 3 Eye Opening: Spontaneous Motor: Obeys Commands Verbal: Oriented GCS Score: 15 PD ED PE EXPANDED - General General: Other (orofacial dyskinesia) Results - Vitals Vitals: Vital Signs - 24 hr 10/15/20 10/16/20 10/16/20 22:01 00:34 02:15 Temperature 37.1 C 37.4 C 37.1 C Heart Rate 78 85 86 Respiratory 20 13 13 Rate Blood Pressure 139/63 H 129/71 158/78 H O2 Saturation 100 98 93 Oxygen O2 Source Nasal cannula - Labs Labs: Laboratory Tests 10/15/20 10/15/20 10/16/20 23:35 23:35 01:23 WBC 9.8 RBC 3.45 L Hgb 11.0 L Hct 36.1 L MCV 104.6 H MCH 31.9 H MCHC 30.5 L RDW 15.9 H Plt Count 228 MPV 9.8 Neut # (Auto) 6.7 H Lymph # (Auto) 1.5 [place] # (Auto) 0.9 Eos # (Auto) 0.6 Baso # (Auto) 0.1 Absolute Nucleated RBC 0.00 Nucleated RBC % 0.0 WBC Morphology NORMAL APPEARANCE Platelet Estimate NORMAL (130-450,000) Platelet Morphology NORMAL APPEARANCE RBC Morph Micro Appear NORMAL APPEARANCE Sodium 133 L Potassium 4.7 Chloride 98 L Carbon Dioxide 26 Anion Gap 9.0 BUN 17 Creatinine 2.6 H Estimated GFR (MDRD) 18 L Glucose 90 Calcium 8.0 L Total Bilirubin 0.8 AST 21 ALT 10 Alkaline Phosphatase 173 H Total Protein 7.8 Albumin 3.3 Globulin 4.5 H Albumin/Globulin Ratio 0.7 L Lipase 18 L Nasal Adenovirus (PCR) NOT DETECTED Nasal B. parapertussis DNA (PCR) NOT DETECTED Nasal Coronavir 229E PCR NOT DETECTED Nasal Coronavir HKU1 PCR NOT DETECTED Nasal Coronavir NL63 PCR NOT DETECTED Nasal Coronavir OC43 PCR NOT DETECTED Nasal Enterovir/Rhinovir PCR NOT DETECTED Nasal Influenza B PCR NOT DETECTED Nasal Influenza A PCR NOT DETECTED Nasal Parainfluen 1 PCR NOT DETECTED Nasal Parainfluen 2 PCR NOT DETECTED Nasal Parainfluen 3 PCR NOT DETECTED Nasal Parainfluen 4 PCR NOT DETECTED Nasal RSV (PCR) NOT DETECTED Nasal B.pertussis DNA PCR NOT DETECTED Nasal C.pneumoniae (PCR) NOT DETECTED Cristopher Human Metapneumo PCR NOT DETECTED Nasal M.pneumoniae (PCR) NOT DETECTED Nasal SARS-CoV-2 (PCR) NOT DETECTED - Rads (name of study) CT chest Radiology: Prelim report reviewed, See rad report CT A/P Radiology: Prelim report reviewed, See rad report PD MEDICAL DECISION MAKING - ED course Complexity details: reviewed old records, reviewed results, re-evaluated patient, considered differential, d/w patient ED course: Patient presents c/o anterior chest pain that has been gradually worsening since she fell at home this afternoon. Her CT chest demonstrates left 10th, 11th, and 12th rib fractures (posterior) as well as transverse process fractures of T10, T11, and L1. IV placement was difficult, nurses unable to obtain IV access. I contacted anesthesia and they came to ED and were able to place a peripheral IV in RUE (she has HD fistula in E). Pain control was difficult to achieve, requiring repeated doses of dilaudid. Also given low-dose lorazepam to augment the effect of the dilaudid. I discussed this case with the hospitalist, Dr. Holcomb, who recommends I contact surface to air weapons officer surgery. I discussed the case with Dr. Collins (surgeon surface to air weapons officer [facility]), who recommends transfer due to over 64 with multiple rib fractures and significant comorbities including COPD (oxygen-dependent) and CRF with M/W/F HD. D/W DR. Knight, trauma surgeon at [place], accepts patient but says patient will be ED-to-ED transfer. I thus discussed the case with the ED physician at [place] and he agrees with transfer. 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 Departure - Departure Disposition: 02 Transfer Acute Care Hosp Clinical Impression: Multiple transverse process fractures CRF (chronic renal failure) Qualifiers: Chronic kidney disease stage: unspecified stage Qualified Code(s): N18.9 - Chronic kidney disease, unspecified Ribs, multiple fractures Qualifiers: Encounter type: initial encounter Fracture type: closed Laterality: left Qualified Code(s): S22.42XA - Multiple fractures of ribs, left side, initial encounter for closed fracture Condition: Stable Discharge Date/Time: 10/16/20 03:45
[2020-10-15] MEDS ORDERED: MORPHINE 2 MG/ML CARPUJECT IVP STA (22:19)
[2020-10-15] MEDS ORDERED: IOPAMIDOL-300 100 ML VIAL ONE (22:24)
[2020-10-15] MEDS ORDERED: HYDROmorphone 1 MG/ML CARPUJECT IM STA ×2 (22:59→23:45)
[2020-10-15 23:44] LABS: BASOPHILS # (AUTO) 0.1 10^3/uL (0.0-0.1); BASOPHILS % (AUTO) 0.7 %; EOSINOPHILS # (AUTO) 0.6 10^3/uL (0.0-0.7); EOSINOPHILS % (AUTO) 6.1 %; HCT - HEMATOCRIT 36.1 % (37.0-47.0); LYMPHOCYTES # (AUTO) 1.5 10^3/uL (1.5-3.5); MEAN CORPUSCULAR HEMOGLOBIN 31.9 pg (27.0-31.0); MEAN CORPUSCULAR HGB CONC 30.5 g/dL (32.0-36.0); MEAN CORPUSCULAR VOLUME 104.6 fL (81.0-99.0); MEAN PLATELET VOLUME 9.8 fL (7.9-10.8); MONOCYTES # (AUTO) 0.9 10^3/uL (0.0-1.0); MONOCYTES % (AUTO) 9.4 %; NEUTROPHILS # (AUTO) 6.7 10^3/uL (1.5-6.6); NEUTROPHILS % (AUTO) 68.5 %; PLT - PLATELET COUNT 228 10^3/uL (130-450); RED BLOOD COUNT 3.45 10^6/uL (4.20-5.40); RED CELL DISTRIBUTION WIDTH 15.9 % (12.0-15.0); WHITE BLOOD COUNT 9.8 x10^3/uL (4.8-10.8)
[2020-10-15 23:52] LABS: ALBUMIN 3.3 g/dL (3.2-5.5); ALBUMIN/GLOBULIN RATIO 0.7 (1.0-2.2); BILIRUBIN,TOTAL 0.8 mg/dL (0.2-1.0); CREATININE 2.6 mg/dL (0.4-1.0); POTASSIUM 4.7 mmol/L (3.5-5.0); TOTAL PROTEIN 7.8 g/dL (6.7-8.2)
[2020-10-16 00:01] LABS: PLATELET ESTIMATE, MANUAL NORMAL (130-450,000) (NORMAL); PLATELET MORPHOLOGY NORMAL APPEARANCE (NORMAL); RBC MORPHOLOGY (MULTIPLE) NORMAL APPEARANCE (NORMAL); WBC MORPHOLOGY (MULTIPLE) NORMAL APPEARANCE (NORMAL)
--- NOTE | 2020-10-16 01:08 | CONSULTATION NOTE ---
Consultation Report: Call for assistance with IV access. Multiple failed attempts at placement and history of difficult IV start per patient. Dialysis patient with L AV fistula requiring access at R UE only. Patient unable to keep head still from erratically moving. Appears as some type of dyskinesia. Patient states this is her normal. High risk IJ, EJ placment. R UE scanned with US and found to have large basilic v. 20ga 1.88" IV placed, attempt x1 with US. Cap placed after blood easily aspirates and flushes. Secured with tape and tegaderm. Pt to lerated procedure without complaint/complication. Report to AQUACULTURAL WORKER SUPERVISOR about new access.
[2020-10-16] MEDS ORDERED: HYDROmorphone 0.5 MG/0.5 ML SYRINGE IVP STA (01:18)
[2020-10-16] MEDS ORDERED: HYDROmorphone 1 MG/ML CARPUJECT IVP STA ×2 (01:19→02:00)
[2020-10-16] MEDS ORDERED: LORazepam 2 MG/ML VIAL IVP STA (02:01)
[2020-10-16 02:20] VITALS: BP 158/78
[2020-10-16 02:36] LABS: B. PARAPERTUSSIS- RESP PCR PAN NOT DETECTED; B. PERTUSSIS- RESP PCR PANEL NOT DETECTED; C. PNEUMONIAE- RESP PCR PANEL NOT DETECTED; CORONAVIRUS 229E-RESP PCR NOT DETECTED; CORONAVIRUS HKU1-RESP PCR NOT DETECTED; CORONAVIRUS NL63-RESP PCR NOT DETECTED; CORONAVIRUS OC43-RESP PCR NOT DETECTED; HUMAN METAPNEUMOVIRUS NOT DETECTED; INFLUENZA A- RESP PCR PANEL NOT DETECTED; INFLUENZA B - RESP PCR PANEL NOT DETECTED; M. PNEUMONIAE- RESP PCR PANEL NOT DETECTED; PARAINFLUENZA VIRUS 1 NOT DETECTED; PARAINFLUENZA VIRUS 2 NOT DETECTED; PARAINFLUENZA VIRUS 3 NOT DETECTED; PARAINFLUENZA VIRUS 4 NOT DETECTED; RHINOVIRUS/ENTEROVIRUS NOT DETECTED; RSV- RESP PCR PANEL NOT DETECTED; SARS-CoV-2 -RESP PCR PANEL NOT DETECTED
--- NOTE | 2020-10-16 08:50 | CT Report ---
PROCEDURE: Abdomen/Pelvis WO INDICATIONS: fall, upper abdominal pain TECHNIQUE: Noncontrast 5 mm thick sections acquired from the diaphragms to the symphysis. 5 mm coronal and sagi ttal reformats were then performed. For radiation dose reduction, the following was used: automated exposure control, adjustment of mA and/or kV according to patient size. COMPARISON: 02/20/2016. FINDINGS: Image quality: Excellent. ABDOMEN: Lung bases: Bibasilar atelectasis is seen. Heart size is enlarged, no pericardial effusion. Solid organs: Liver is normal in size. Mild splenomegaly is seen measures 14.5 cm in craniocaudal di mension. Gallbladder is not visualized suggestive of prior cholecystectomy. Pancreas is normal in co ntours. 1.5 x 2 cm hypodense nodule is seen in left adrenal gland series 3 image 20. No right adrena l nodules. Atrophic right kidney is seen. No renal stone or hydronephrosis. Suggestion of bilateral s mall renal cysts. Peritoneum and bowel: Unenhanced bowel loops demonstrate normal wall thickness and caliber. No free fluid or air. Appendix is not definitively identified. No inflammatory changes are noted in right l ower quadrant abdomen. Colonic diverticulosis without evidence of acute diverticulitis. No abscess co llection. Mild fecal stasis in the colon is seen. Nodes and vessels: No retroperitoneal or mesenteric adenopathy by size criteria. Aorta and inferior vena cava are normal in caliber. Miscellaneous: No ventral hernias. PELVIS: Genitourinary: Bladder wall thickness is normal. Miscellaneous: No inguinal hernias or adenopathy. Bones: Possible subtle nondisplaced fractures are noted involving left transverse processes of T10, T 11 and L1 vertebral bodies as well as left posterior lateral 10th through 12th ribs, No suspicious [place] lesions. Patient is status post prior left total hip arthroplasty and internal fixation of proxima l femoral shaft with significant beam hardening artifacts. No vertebral body compression fractures. IMPRESSION: 1. No acute solid organ injury within abdomen or pelvis. 2. Mild splenomegaly. Suggestion of prior cholecystectomy. 3. Left adrenal hypodense nodule likely representing adrenal adenoma not significantly changed from 2 016 study. 4. No evidence of bowel obstruction. No abnormal bowel wall thickening. No free fluid of free air. 5. Subtle nondisplaced fractures involving left transverse processes of T10, T11 and L1 as well as le ft posterior lateral 10th through 12th ribs, suggest clinical correlation. No gross acute pelvic or l umbar spine fracture or dislocation. Prior left total hip arthroplasty and internal fixation. No kylee s hardware complication. No significant discrepancies from preliminary reading. Reviewed by: Zack Hopson MD on 10/16/2020 8:49 AM PDT Approved by: Zack Hopson MD on 10/16/2020 8:49 AM PDT Station ID: [id number]
--- NOTE | 2020-10-16 08:59 | CT Report ---
PROCEDURE: CHEST WO INDICATIONS: fall, anterior chest wall pain TECHNIQUE: Noncontrast 5 mm thick sections acquired from the pulmonary apices to the posterior costophrenic angl es. 7 mm thick coronal and sagittal MIP reformats were then acquired. For radiation dose reduction, the following was used: automated exposure control, adjustment of mA and/or kV according to patient size. COMPARISON: 03/26/2015 FINDINGS: Image quality: Excellent. Lungs and pleura: Scattered atelectasis in posterior lateral periphery of bilateral lower lung alonso are seen. Chronic interlobular septal thickening is also noted. No pleural effusions or pneumothorax . Central and peripheral airways are patent and normal in caliber. Mediastinum: Heart size is enlarged. No pericardial effusion. Borderline prominent mediastinal lymp h nodes are seen measures up to 9 mm in short axis diameter in right paratracheal space and 1 cm in s hort axis diameter. Subcarinal space. Moderate atherosclerotic disease is seen. Thoracic aorta and ce ntral pulmonary arteries are normal in size. Esophagus is normal in caliber. No hiatal hernia. Bones and chest wall: Acute minimally displaced fractures involving left posterior 10th through 12th ribs are seen with mild adjacent pleural thickening. Minimally displaced fracture is also noted invol ving left transverse processes of T10 and T11 as well as lateral transverse process of L1 vertebral b carli. No vertebral body compression fractures. No axillary or supraclavicular adenopathy by size crit eria. The thyroid is normal in size. Abdomen: Visualized upper abdominal solid organs and bowel loops appear normal in the absence of con trast. IMPRESSION: 1. Fractures involving left posterior 10th through 12th ribs with adjacent pleural thickening. Fractu res also seen involving left transverse processes of T11, T10, and L1 vertebral bodies. 2. Atelectasis in bilateral lower lung alonso. Chronic interlobular septal thickening. No focal infil trate, pleural effusion or pneumothorax. Airway is patent. 3. Cardiomegaly. Nonspecific borderline enlarged mediastinal lymph nodes. Moderate atherosclerotic di sease. No significant discrepancies. Reviewed by: Zack Hopson MD on 10/16/2020 8:57 AM PDT Approved by: Zack Hopson MD on 10/16/2020 8:57 AM PDT Station ID: [id number]
== END 2020-10-16 03:45 | disposition short-term general hospital (02) ==
LOC: EDUNIT# → ED 21:53
DX: S22.42XA Multiple fractures of ribs, left side, initial encounter for closed fracture (principal); W18.30XA Fall on same level, unspecified, initial encounter; Y92.009 Unspecified place in unspecified non-institutional (private) residence as the place of occurrence of the external cause; I48.91 Unspecified atrial fibrillation; N18.6 End stage renal disease; Z99.2 Dependence on renal dialysis; I12.0 Hypertensive chronic kidney disease with stage 5 chronic kidney disease or end stage renal disease; Z20.822 Contact with and (suspected) exposure to COVID-19
CPT/HCPCS: 71250; 74176; 80053; 83690; 85025; 87631; 96372; 96374; 96375; 96376; 99284; 99285; J1170; J2060; 0202U

== ENCOUNTER 2020-10-16 | Outpatient (CLI) | payer MEDICARE, MEDICAID | END 2020-10-16 03:43 | disposition short-term general hospital (02) | CPT/HCPCS: A0425; A0426 ==

== ENCOUNTER 2020-11-19 09:16 | Outpatient (CLI) | payer MEDICARE, MEDICAID | END 2020-11-19 09:17 | disposition other institution (70) | LOC: EMS 09:16 | DX: T82.49XA Other complication of vascular dialysis catheter, initial encounter (principal) ==